=== PATIENT | male | born 1960 | race Caucasian/White ===

== ENCOUNTER 2018-04-10 11:01 | Emergency (ER) | payer OTHER ==
[2018-04-10 11:33] VITALS: RESP 18
[2018-04-10] MEDS ORDERED: SODIUM CHLORIDE 0.9% 1,000 ML IV STA (11:50)
--- NOTE | 2018-04-10 12:11 | ED ---
General Adult HPI - General Chief complaint: Extremity Problem,Nontraumatic Stated complaint: lt shoulder/side pain Time Seen by Provider: 04/10/18 11:34 Source: patient, RN notes reviewed Mode of arrival: ambulatory Limitations: no limitations - History of Present Illness Initial comments: Patient's a 57-year-old male with no significant past medical history, presented to the emergency room today with multiple complaints. He does admit that he's had a bump to the back of her left shoulder that his noticed for a few weeks. He states it has gotten smaller. Patient admits that he is also had some pain to the left side of the abdomen. He states that he's had a approximately 25 pound weight loss since February. Patient states is not been trying to lose weight but has noticed that his appetites been decreased. Patient states pain the abdomen is relatively comfortable today but it does seem to come and go. Patient denies any other symptoms at this time. Patient denies any recent fever, chills, shortness of breath, chest pain, back pain, nausea or vomiting, numbness or tingling, dysuria or hematuria, constipation or diarrhea, headaches or visual changes, or any other complaints. - Related Data Previous Rx's Medication Instructions Recorded Naproxen [Naprosyn] 500 mg PO BID #20 tablet 04/10/18 Allergies Allergy/AdvReac Type Severity Reaction Status Date / Time No Known Allergies Allergy Verified 04/10/18 11:33 Review of Systems ROS Statement: Those systems with pertinent positive or pertinent negative responses have been documented in the HPI. ROS Other: All systems not noted in ROS Statement are negative. Past Medical History Past Medical History: No Reported History History of Any Multi-Drug Resistant Organisms: None Reported Past Surgical History: Orthopedic Surgery Past Psychological History: No Psychological Hx Reported Smoking Status: Current every day smoker Past Alcohol Use History: None Reported Past Drug Use History: None Reported General Exam - General Exam Comments Initial Comments: General: The patient is awake and alert, in no distress, and does not appear acutely ill. Eye: There is normal conjunctiva bilaterally. No signs of icterus. Ears, nose, mouth and throat: There are moist mucous membranes and no oral lesions. Neck: The neck is supple, there is no tenderness or JVD. Cardiovascular: There is a regular rate and rhythm. No murmur, rub or gallop is appreciated. Respiratory: Lungs are clear to auscultation, respirations are non-labored, breath sounds are equal. No wheezes, stridor, rales, or rhonchi. Gastrointestinal: Mild tenderness left side of the abdomen. No rebound, guarding or CVA tenderness. Musculoskeletal: Normal ROM. Patient does have mild tenderness over the spine of the scapula. Strength 5/5. Full range of motion. Sensations intact. Radial pulse 2+. Neurological: A&O x 3. CN II-XII intact, There are no obvious motor or sensory deficits. Coordination appears grossly intact. Speech is normal. Skin: Skin is warm and dry and no rashes or lesions are noted. Psychiatric: Cooperative, appropriate mood & affect, normal judgment. Limitations: no limitations Course Vital Signs 04/10/18 11:31 Temperature 97.7 F Pulse Rate 79 Respiratory 18 Rate Blood Pressure 155/91 O2 Sat by Pulse 97 Oximetry Medical Decision Making - Medical Decision Making Patient reexamined and is resting comfortably. His x-ray of left shoulder and chest x-ray are negative for any acute abnormality. No evidence for infection or abscess. Patient advised to continue to watch the series does admit that swelling has decreased. He states he's had a decrease in weight and decrease in appetite over the last 2 months. Patient's blood work reviewed unremarkable.Patient's CT the pelvis reviewed and shows marked edema bilateral adrenal glands. Differential diagnostic possibilities including severe adrenal hyperplasia, nonacute adrenal hemorrhage, a lymphoma as well has metastatic disease. As read by radiologist Dr. Carlos. Case discussed in detail with attending physician Dr. Sabillon. Advised to follow-up with family physician over the next 2 days. Advised return here to emergency room if any symptoms increase or worsen or for any other concerns. - Lab Data Result diagrams: 04/10/18 12:11 04/10/18 12:11 Lab Results 04/10/18 04/10/18 04/10/18 Range/Units 12:11 12:11 12:11 WBC 8.2 (3.8-10.6) k/uL RBC 5.72 (4.30-5.90) m/uL Hgb 17.2 (13.0-17.5) gm/dL Hct 50.4 (39.0-53.0) % MCV 88.0 (80.0-100.0) fL MCH 30.0 (25.0-35.0) pg MCHC 34.1 (31.0-37.0) g/dL RDW 12.5 (11.5-15.5) % Plt Count 227 (150-450) k/uL Neutrophils % 70 % Lymphocytes % 21 % Monocytes % 6 % Eosinophils % 1 % Basophils % 1 % Neutrophils # 5.7 (1.3-7.7) k/uL Lymphocytes # 1.7 (1.0-4.8) k/uL Monocytes # 0.5 (0-1.0) k/uL Eosinophils # 0.1 (0-0.7) k/uL Basophils # 0.0 (0-0.2) k/uL Sodium 137 (137-145) mmol/L Potassium 4.8 (3.5-5.1) mmol/L Chloride 102 (98-107) mmol/L Carbon Dioxide 29 (22-30) mmol/L Anion Gap 6 mmol/L BUN 8 L (9-20) mg/dL Creatinine 0.84 (0.66-1.25) mg/dL Est GFR (CKD-EPI)AfAm >90 (>60 ml/min/1.73 sqM) Est GFR (CKD-EPI)NonAf >90 (>60 ml/min/1.73 sqM) Glucose 99 (74-99) mg/dL Calcium 9.7 (8.4-10.2) mg/dL Total Bilirubin 1.0 (0.2-1.3) mg/dL AST 20 (17-59) U/L ALT 23 (21-72) U/L Alkaline Phosphatase 78 (38-126) U/L Total Protein 7.2 (6.3-8.2) g/dL Albumin 4.3 (3.5-5.0) g/dL Amylase 35 (30-110) U/L Lipase 55 (23-300) U/L Urine Color Yellow Urine Appearance Clear (Clear) Urine pH 5.5 (5.0-8.0) Ur Specific [place] 1.005 (1.001-1.035) Urine Protein Negative (Negative) Urine Glucose (UA) Negative (Negative) Urine Ketones Negative (Negative) Urine Blood Negative (Negative) Urine Nitrite Negative (Negative) Urine Bilirubin Negative (Negative) Urine Urobilinogen <2.0 (<2.0) mg/dL Ur Leukocyte Esterase Negative (Negative) Disposition Clinical Impression: Adrenal abnormality, Shoulder pain Disposition: HOME SELF-CARE Condition: Good Additional Instructions: Please use medication as discussed. Please follow-up with family doctor in the next 2 days. Please return to emergency room if the symptoms increase or worsen or for any other concerns. Prescriptions: Naproxen [Naprosyn] 500 mg PO BID #20 tablet Is patient prescribed a controlled substance at d/c from ED?: No Referrals: None,Stated [Primary Care Provider] - 1-2 days Bubba Jewell MD [REFERRING] - 1-2 days Rasta Izquierdo DO [STAFF PHYSICIAN] - 1-2 days Time of Disposition: 14:20
--- NOTE | 2018-04-10 12:29 | XR ---
EXAMINATION TYPE: XR shoulder complete LT DATE OF EXAM: 04/10/2018 CLINICAL HISTORY: pain COMPARISON: NONE TECHNIQUE: Three views of the left shoulder are obtained. FINDINGS: There is no acute fracture/dislocation evident. The acromioclavicular and glenohumeral tuan int spaces appear mildly narrowed. The visualized ribs are intact and unremarkable. IMPRESSION: 1. There is no acute fracture or dislocation. ICD 10 NO FRACTURE, INITIAL EVALUATION
--- NOTE | 2018-04-10 12:39 | XR ---
EXAMINATION TYPE: XR chest 2V DATE OF EXAM: 04/10/2018 COMPARISON: NONE HISTORY: Shortness of breath TECHNIQUE: Frontal and lateral views of the chest are obtained. FINDINGS: Scattered senescent parenchymal changes noted. Hyperinflation compatible with COPD. No evidence for infiltrate. No evidence for atelectasis. Heart size is stable. Mediastinal structures are stable and grossly unremarkable. No evidence for hilar prominence. Degenerative changes dorsal spine. IMPRESSION: 1. No evidence for acute pulmonary disease.
[2018-04-10 12:47] LABS: Appearance,Urine Clear (Clear); Bilirubin,Urine Negative (Negative); Blood,Urine Negative (Negative); Color,Urine Yellow; Glucose,Urine (UA) Negative (Negative); Ketones,Urine Negative (Negative); Leukocyte Esterase,Urine Negative (Negative); Nitrite,Urine Negative (Negative); PH, Urine 5.5 (5.0-8.0); Protein,Urine Negative (Negative); Specific Gravity,Urine 1.005 (1.001-1.035); Urobilinogen,Urine <2.0 mg/dL (<2.0)
[2018-04-10 12:54] LABS: ALT 23 U/L (21-72); AST 20 U/L (17-59); Albumin 4.3 g/dL (3.5-5.0); Alkaline Phosphatase 78 U/L (38-126); Amylase 35 U/L (30-110); Anion Gap 6 mmol/L; Basophils % (A) 1 %; Blood Urea Nitrogen 8 mg/dL (9-20); Calcium 9.7 mg/dL (8.4-10.2); Carbon Dioxide 29 mmol/L (22-30); Chloride 102 mmol/L (98-107); Eosinophils # (A) 0.1 k/uL (0-0.7); Eosinophils % (A) 1 %; Glucose 99 mg/dL (74-99); HCT 50.4 % (39.0-53.0); HGB 17.2 gm/dL (13.0-17.5); Lipase 55 U/L (23-300); Lymphocytes # (A) 1.7 k/uL (1.0-4.8); Lymphocytes % (A) 21 %; MCHC 34.1 g/dL (31.0-37.0); Mean Platelet Volume 6.8; Monocytes # (A) 0.5 k/uL (0-1.0); Monocytes % (A) 6 %; Neutrophils # (A) 5.7 k/uL (1.3-7.7); Neutrophils % (A) 70 %; Platelet Count 227 k/uL (150-450); Potassium 4.8 mmol/L (3.5-5.1); RBC 5.72 m/uL (4.30-5.90); RDW 12.5 % (11.5-15.5); Sodium 137 mmol/L (137-145); Total Protein 7.2 g/dL (6.3-8.2); WBC 8.2 k/uL (3.8-10.6)
--- NOTE | 2018-04-10 13:25 | CT ---
EXAMINATION TYPE: CT abdomen pelvis w con DATE OF EXAM: 04/10/2018 COMPARISON: None HISTORY: Left sided pain for [address] DLP: 637 mGycm CONTRAST: CT scan of the abdomen and pelvis is performed without Oral Contrast and with IV Contrast, patient in jected with 100 mL of Isovue 300. FINDINGS: LUNG BASES-: No visible nodule. No infiltrate. LIVER/GB: No calcified gallstones. No space occupying hepatic lesion. Biliary tree is of normal ca liber. PANCREAS: No inflammation. No distinct mass. SPLEEN: No splenic enlargement. No lesion seen. ADRENALS: There is marked thickening of the bilateral adrenal glands. Differential diagnostic possibi lities include severe adrenal hyperplasia, nonacute adrenal hemorrhage, lymphoma as well as metastati c disease. Left adrenal gland measures 6.2 x 3.7 cm while the right adrenal gland measures 3.1 x 1.8 cm. KIDNEYS/BLADDER: No hydronephrosis. No nephrolithiasis. No distinct renal mass. Urinary bladder g rossly unremarkable. BOWEL: Normal appendix. Normal bowel caliber. No inflammation. GENITAL ORGANS: No gross abnormality. LYMPH NODES: No greater than 1cm abdominal or pelvic lymph nodes are appreciated. AORTA: No significant abnormality. OSSEOUS STRUCTURES: No significant abnormality is seen. OTHER: No significant additional abnormality is seen. IMPRESSION: 1. There is marked thickening of the bilateral adrenal glands. Differential diagnostic possibilities include severe adrenal hyperplasia, nonacute adrenal hemorrhage, lymphoma as well as metastatic disea se.
--- NOTE | 2018-04-10 14:26 | ED ---
Medical Decision Making - Lab Data Result diagrams: 04/10/18 12:11 04/10/18 12:11 Lab Results 04/10/18 04/10/18 04/10/18 Range/Units 12:11 12:11 12:11 WBC 8.2 (3.8-10.6) k/uL RBC 5.72 (4.30-5.90) m/uL Hgb 17.2 (13.0-17.5) gm/dL Hct 50.4 (39.0-53.0) % MCV 88.0 (80.0-100.0) fL MCH 30.0 (25.0-35.0) pg MCHC 34.1 (31.0-37.0) g/dL RDW 12.5 (11.5-15.5) % Plt Count 227 (150-450) k/uL Neutrophils % 70 % Lymphocytes % 21 % Monocytes % 6 % Eosinophils % 1 % Basophils % 1 % Neutrophils # 5.7 (1.3-7.7) k/uL Lymphocytes # 1.7 (1.0-4.8) k/uL Monocytes # 0.5 (0-1.0) k/uL Eosinophils # 0.1 (0-0.7) k/uL Basophils # 0.0 (0-0.2) k/uL Sodium 137 (137-145) mmol/L Potassium 4.8 (3.5-5.1) mmol/L Chloride 102 (98-107) mmol/L Carbon Dioxide 29 (22-30) mmol/L Anion Gap 6 mmol/L BUN 8 L (9-20) mg/dL Creatinine 0.84 (0.66-1.25) mg/dL Est GFR (CKD-EPI)AfAm >90 (>60 ml/min/1.73 sqM) Est GFR (CKD-EPI)NonAf >90 (>60 ml/min/1.73 sqM) Glucose 99 (74-99) mg/dL Calcium 9.7 (8.4-10.2) mg/dL Total Bilirubin 1.0 (0.2-1.3) mg/dL AST 20 (17-59) U/L ALT 23 (21-72) U/L Alkaline Phosphatase 78 (38-126) U/L Total Protein 7.2 (6.3-8.2) g/dL Albumin 4.3 (3.5-5.0) g/dL Amylase 35 (30-110) U/L Lipase 55 (23-300) U/L Urine Color Yellow Urine Appearance Clear (Clear) Urine pH 5.5 (5.0-8.0) Ur Specific [place] 1.005 (1.001-1.035) Urine Protein Negative (Negative) Urine Glucose (UA) Negative (Negative) Urine Ketones Negative (Negative) Urine Blood Negative (Negative) Urine Nitrite Negative (Negative) Urine Bilirubin Negative (Negative) Urine Urobilinogen <2.0 (<2.0) mg/dL Ur Leukocyte Esterase Negative (Negative) Disposition Clinical Impression: Adrenal abnormality, Shoulder pain Disposition: HOME SELF-CARE Condition: Good Instructions (If sedation given, give patient instructions): Abdominal Pain (ED ) Additional Instructions: Please use medication as discussed. Please follow-up with family doctor in the next 2 days. Please return to emergency room if the symptoms increase or worsen or for any other concerns. Prescriptions: Naproxen [Naprosyn] 500 mg PO BID #20 tablet Is patient prescribed a controlled substance at d/c from ED?: No Referrals: Bubba Jewell MD [REFERRING] - 1-2 days Rasta Izquierdo DO [STAFF PHYSICIAN] - 1-2 days None,Stated [Primary Care Provider] - 1-2 days Time of Disposition: 14:25
[2018-04-10 14:36] VITALS: BP 148/80; PULSE 81; TEMP 98
== END 2018-04-10 14:36 | disposition home or self-care (01) ==
LOC: EC 11:01
DX: E27.8 Other specified disorders of adrenal gland (principal); M25.512 Pain in left shoulder; R22.32 Localized swelling, mass and lump, left upper limb; R10.9 Unspecified abdominal pain; R63.4 Abnormal weight loss; R63.8 Other symptoms and signs concerning food and fluid intake; F17.200 Nicotine dependence, unspecified, uncomplicated
CPT/HCPCS: 99284; 96360; 36415; 80053; 82150; 83690; 85025; 81003; 73030; 71046; 74177; Q9967

== ENCOUNTER → 2018-04-17 | Outpatient (CLI) | payer OTHER ==
--- NOTE | 2018-04-18 04:58 | MR ---
EXAMINATION TYPE: MR shoulder LT wo con DATE OF EXAM: 04/17/2018 COMPARISON: None HISTORY: Left Shoulder Pain, X Ray on PACS TECHNIQUE: Multiplanar, multisequence imaging of the left shoulder is performed without contrast. FINDINGS: There is a 2.6 x 2.5 x 2.2 cm destructive lesion involving the body of the scapula near the glenoid. There is cortical destruction and mass extension into the adjacent soft tissues. The lesion is predom inantly decreased signal on T1 and increased signal on T2 images. There is also a similar appearing r ounded expansile destructive lesion involving the acromion process of the scapula. This is posterior and could be palpable. The biceps tendon is intact. Subscapularis tendon is intact. The supraspinatus tendon is intact. Ther e is minor spurring at the AC joint. There is no evidence for fracture. IMPRESSION: Expansile mass destructive lesions involving the scapula suggestive of metastatic disease. Bone surve y or whole-body bone scan would be helpful for further evaluation if clinically indicated. Myeloma is possible.
== END | disposition home or self-care (01) ==
LOC: RADMRIMAIN 16:22
PROVIDERS: ATTEND Internal Medicine
DX: M75.82 Other shoulder lesions, left shoulder (principal)

== ENCOUNTER → 2018-04-20 | Outpatient (CLI) | payer OTHER ==
--- NOTE | 2018-04-20 16:15 | CT ---
EXAMINATION TYPE: CT shoulder LT wo con DATE OF EXAM: 04/20/2018 COMPARISON: MR left shoulder 04/17/2018 HISTORY: Left shoulder pain. Recent cancer diagnosis of unknown origin. CT DLP: 440 mGycm Automated exposure control for dose reduction was used. Helical imaging through the left shoulder. Co bertha and sagittal, three-dimensional reconstructions. There is a lytic bone lesion involving the bony labrum with associated soft tissue mass measuring 2.4 cm. Lytic bone lesion is also present at the spine of the scapula with associated soft tissue mass m easuring approximately 2.2 cm. Emphysematous changes present within the left lung. IMPRESSION: METASTATIC DISEASE VERSUS MYELOMA, LESION WOULD BE AMENABLE TO PERCUTANEOUS FINE-NEEDLE ASPIRATION
== END | disposition home or self-care (01) ==
LOC: RADCTMAIN 13:34
PROVIDERS: ATTEND Orthopaedic Surgery
DX: M25.512 Pain in left shoulder (principal)

== ENCOUNTER 2018-05-03 12:49 | Inpatient (IN) | payer OTHER ==
--- NOTE | 2018-05-03 14:19 | ED ---
General Adult HPI - General Chief complaint: Recheck/Abnormal Lab/Rx Stated complaint: memory problems/cancer pt Time Seen by Provider: 05/03/18 13:40 Source: patient, family, RN notes reviewed Mode of arrival: ambulatory Limitations: altered mental status - History of Present Illness Initial comments: Patient is a pleasant 57-year-old male presenting to the emergency Department with confusion. Onset of symptoms was mild week or so ago however more severe the past 3 days. Patient was recently diagnosed with cancer in his left shoulder. Patient did have this diagnosed by computed tomography scan and then went downtown and had more testing. Patient was supposed to follow-up with Dr. Thompson however cannot remember how to get there. Patient is having problems with simple tasks including using the phone and has been more forgetful. Patient did not eat for the last couple of days. Patient has lost approximately 20 pounds over the last couple months. - Related Data Home Medications Medication Instructions Recorded Confirmed HYDROcodone/APAP 5-325MG [[place] 1 tab PO Q4HR PRN 05/03/18 05/03/18 5-325] Allergies Allergy/AdvReac Type Severity Reaction Status Date / Time No Known Allergies Allergy Verified 05/03/18 13:33 Review of Systems ROS Statement: Those systems with pertinent positive or pertinent negative responses have been documented in the HPI. ROS Other: All systems not noted in ROS Statement are negative. Constitutional: Denies: fever Eyes: Denies: eye pain ENT: Denies: ear pain Respiratory: Denies: cough Cardiovascular: Denies: chest pain Endocrine: Denies: fatigue Gastrointestinal: Denies: abdominal pain Genitourinary: Denies: dysuria Musculoskeletal: Reports: arthralgia (Left Posterior shoulder/region) Neurological: Reports: confusion. Denies: headache Past Medical History Past Medical History: No Reported History History of Any Multi-Drug Resistant Organisms: None Reported Past Surgical History: Orthopedic Surgery Additional Past Surgical History / Comment(s): right elbow Past Psychological History: No Psychological Hx Reported Smoking Status: Current every day smoker Past Alcohol Use History: None Reported Past Drug Use History: None Reported General Exam Limitations: no limitations General appearance: alert, in no apparent distress Head exam: Present: atraumatic Eye exam: Present: normal appearance, PERRL, EOMI. Absent: nystagmus ENT exam: Present: normal oropharynx Neck exam: Present: normal inspection Respiratory exam: Present: normal lung sounds bilaterally Cardiovascular Exam: Present: regular rate, normal rhythm Expanded Peripheral pulses: 2+: Radial (R), Radial (L), Posterior Tibialis (R), Posterior Tibialis (L) GI/Abdominal exam: Present: soft. Absent: distended, tenderness Extremities exam: Present: full ROM, tenderness (Left scapular region). Absent : pedal edema, calf tenderness Back exam: Present: normal inspection Neurological exam: Present: alert, oriented X3, CN II-XII intact. Absent: motor sensory deficit Expanded Neurological exam: Present: protecting the airway Patient oriented to: Present: person, place. Absent: time Speech: Present: fluid speech Cranial nerves: EOM's Intact: Normal Motor strength exam: RUE: 5, LUE: 5, RLE: 5, LLE: 5 Eye Response: (4) open spontaneously Motor Response: (6) obeys commands Verbal Response: (4) confused conversation Psychiatric exam: Present: normal affect, normal mood Skin exam: Present: normal color Course Vital Signs 05/03/18 05/03/18 12:51 15:30 Temperature 97.6 F Pulse Rate 82 87 Respiratory 18 18 Rate Blood Pressure 165/95 139/97 O2 Sat by Pulse 98 98 Oximetry EKG Findings - EKG Comments: EKG Findings:: Normal sinus rhythm at 82. [place] 152. QRS 84. QT 388. QTC 453. Left axis. Septal Q waves. No acute ST change. Medical Decision Making - Medical Decision Making Patient and family were updated. Case was discussed with Dr. she is against neck, covering for Dr. Sherry rivera, who will admit. Case also discussed with Dr. Thompson, who will consult. He is somewhat familiar with this patient as he was supposed to see them in the office. Patient states he was too confused to make it to the office. He does recommend Decadron 6 mg IV every 6 as well as IV fluids. - Lab Data Result diagrams: 05/03/18 14:30 05/03/18 14:30 Lab Results 05/03/18 05/03/18 05/03/18 Range/Units 14:30 14:30 14:30 WBC 7.9 (3.8-10.6) k/uL RBC 5.70 (4.30-5.90) m/uL Hgb 17.3 (13.0-17.5) gm/dL Hct 49.9 (39.0-53.0) % MCV 87.5 (80.0-100.0) fL MCH 30.4 (25.0-35.0) pg MCHC 34.7 (31.0-37.0) g/dL RDW 12.8 (11.5-15.5) % Plt Count 230 (150-450) k/uL Neutrophils % 78 % Lymphocytes % 15 % Monocytes % 5 % Eosinophils % 1 % Basophils % 0 % Neutrophils # 6.1 (1.3-7.7) k/uL Lymphocytes # 1.2 (1.0-4.8) k/uL Monocytes # 0.4 (0-1.0) k/uL Eosinophils # 0.1 (0-0.7) k/uL Basophils # 0.0 (0-0.2) k/uL PT 9.5 (9.0-12.0) sec INR 0.9 (<1.2) APTT 27.3 (22.0-30.0) sec Sodium 136 L (137-145) mmol/L Potassium 5.3 H (3.5-5.1) mmol/L Chloride 102 (98-107) mmol/L Carbon Dioxide 28 (22-30) mmol/L Anion Gap 6 mmol/L BUN 6 L (9-20) mg/dL Creatinine 0.73 (0.66-1.25) mg/dL Est GFR (CKD-EPI)AfAm >90 (>60 ml/min/1.73 sqM) Est GFR (CKD-EPI)NonAf >90 (>60 ml/min/1.73 sqM) Glucose 103 H (74-99) mg/dL POC Glucose (mg/dL) (75-99) mg/dL POC Glu [employer] Supervisor ID Calcium 9.9 (8.4-10.2) mg/dL Total Bilirubin 1.1 (0.2-1.3) mg/dL AST 25 (17-59) U/L ALT 27 (21-72) U/L Alkaline Phosphatase 76 (38-126) U/L Ammonia (<30) umol/L Creatine Kinase 32 L (55-170) U/L Total Protein 6.9 (6.3-8.2) g/dL Albumin 4.0 (3.5-5.0) g/dL Urine Color Urine Appearance (Clear) Urine pH (5.0-8.0) Ur Specific [place] (1.001-1.035) Urine Protein (Negative) Urine Glucose (UA) (Negative) Urine Ketones (Negative) Urine Blood (Negative) Urine Nitrite (Negative) Urine Bilirubin (Negative) Urine Urobilinogen (<2.0) mg/dL Ur Leukocyte Esterase (Negative) Urine Opiates Screen (NotDetected) Ur Oxycodone Screen (NotDetected) Urine Methadone Screen (NotDetected) Ur Propoxyphene Screen (NotDetected) Ur Barbiturates Screen (NotDetected) U Tricyclic Antidepress (NotDetected) Ur Phencyclidine Scrn (NotDetected) Ur Amphetamines Screen (NotDetected) U Methamphetamines Scrn (NotDetected) U Benzodiazepines Scrn (NotDetected) Urine Cocaine Screen (NotDetected) U Marijuana (THC) Screen (NotDetected) 05/03/18 05/03/18 05/03/18 Range/Units 14:30 14:30 14:47 WBC (3.8-10.6) k/uL RBC (4.30-5.90) m/uL Hgb (13.0-17.5) gm/dL Hct (39.0-53.0) % MCV (80.0-100.0) fL MCH (25.0-35.0) pg MCHC (31.0-37.0) g/dL RDW (11.5-15.5) % Plt Count (150-450) k/uL Neutrophils % % Lymphocytes % % Monocytes % % Eosinophils % % Basophils % % Neutrophils # (1.3-7.7) k/uL Lymphocytes # (1.0-4.8) k/uL Monocytes # (0-1.0) k/uL Eosinophils # (0-0.7) k/uL Basophils # (0-0.2) k/uL PT (9.0-12.0) sec INR (<1.2) APTT (22.0-30.0) sec Sodium (137-145) mmol/L Potassium (3.5-5.1) mmol/L Chloride (98-107) mmol/L Carbon Dioxide (22-30) mmol/L Anion Gap mmol/L BUN (9-20) mg/dL Creatinine (0.66-1.25) mg/dL Est GFR (CKD-EPI)AfAm (>60 ml/min/1.73 sqM) Est GFR (CKD-EPI)NonAf (>60 ml/min/1.73 sqM) Glucose (74-99) mg/dL POC Glucose (mg/dL) 101 H (75-99) mg/dL POC Glu [employer] Supervisor ID [place] Calcium (8.4-10.2) mg/dL Total Bilirubin (0.2-1.3) mg/dL AST (17-59) U/L ALT (21-72) U/L Alkaline Phosphatase (38-126) U/L Ammonia <9 (<30) umol/L Creatine Kinase (55-170) U/L Total Protein (6.3-8.2) g/dL Albumin (3.5-5.0) g/dL Urine Color Light Yellow Urine Appearance Clear (Clear) Urine pH 6.0 (5.0-8.0) Ur Specific [place] 1.001 (1.001-1.035) Urine Protein Negative (Negative) Urine Glucose (UA) Negative (Negative) Urine Ketones Negative (Negative) Urine Blood Negative (Negative) Urine Nitrite Negative (Negative) Urine Bilirubin Negative (Negative) Urine Urobilinogen <2.0 (<2.0) mg/dL Ur Leukocyte Esterase Negative (Negative) Urine Opiates Screen Detected H (NotDetected) Ur Oxycodone Screen Not Detected (NotDetected) Urine Methadone Screen Not Detected (NotDetected) Ur Propoxyphene Screen Not Detected (NotDetected) Ur Barbiturates Screen Not Detected (NotDetected) U Tricyclic Antidepress Not Detected (NotDetected) Ur Phencyclidine Scrn Not Detected (NotDetected) Ur Amphetamines Screen Not Detected (NotDetected) U Methamphetamines Scrn Not Detected (NotDetected) U Benzodiazepines Scrn Not Detected (NotDetected) Urine Cocaine Screen Not Detected (NotDetected) U Marijuana (THC) Screen Not Detected (NotDetected) - Radiology Data Radiology results: image reviewed (Computed tomography scan of the brain shows diffuse metastatic disease with edema associated. Chest x-ray shows no acute process.) Disposition Clinical Impression: Metastatic cancer to brain, Altered mental status Disposition: ADMITTED IP TO THIS HOSP Condition: Poor Is patient prescribed a controlled substance at d/c from ED?: No Referrals: None,Stated [Primary Care Provider] - 1-2 days Decision Time: 16:40
[2018-05-03 14:50] LABS: Glucose,Whole Blood 101 mg/dL (75-99)
[2018-05-03 14:59] LABS: Basophils % (A) 0 %; Eosinophils # (A) 0.1 k/uL (0-0.7); Eosinophils % (A) 1 %; HCT 49.9 % (39.0-53.0); HGB 17.3 gm/dL (13.0-17.5); Lymphocytes # (A) 1.2 k/uL (1.0-4.8); Lymphocytes % (A) 15 %; MCH 30.4 pg (25.0-35.0); MCHC 34.7 g/dL (31.0-37.0); MCV 87.5 fL (80.0-100.0); Mean Platelet Volume 7.5; Monocytes # (A) 0.4 k/uL (0-1.0); Monocytes % (A) 5 %; Neutrophils # (A) 6.1 k/uL (1.3-7.7); Neutrophils % (A) 78 %; Platelet Count 230 k/uL (150-450); RDW 12.8 % (11.5-15.5); WBC 7.9 k/uL (3.8-10.6)
[2018-05-03 15:00] LABS: ALT 27 U/L (21-72); AST 25 U/L (17-59); Alkaline Phosphatase 76 U/L (38-126); Anion Gap 6 mmol/L; Appearance,Urine Clear (Clear); Bilirubin,Urine Negative (Negative); Blood Urea Nitrogen 6 mg/dL (9-20); Blood,Urine Negative (Negative); Calcium 9.9 mg/dL (8.4-10.2); Carbon Dioxide 28 mmol/L (22-30); Chloride 102 mmol/L (98-107); Color,Urine Light Yellow; Creatine Kinase 32 U/L (55-170); Glucose 103 mg/dL (74-99); Glucose,Urine (UA) Negative (Negative); Ketones,Urine Negative (Negative); Leukocyte Esterase,Urine Negative (Negative); Nitrite,Urine Negative (Negative); Protein,Urine Negative (Negative); Sodium 136 mmol/L (137-145); Specific Gravity,Urine 1.001 (1.001-1.035); Total Bilirubin 1.1 mg/dL (0.2-1.3); Total Protein 6.9 g/dL (6.3-8.2); Urobilinogen,Urine <2.0 mg/dL (<2.0)
[2018-05-03 15:03] LABS: INR 0.9 (<1.2); Partial Thromboplastin Time 27.3 sec (22.0-30.0); Prothrombin Time 9.5 sec (9.0-12.0)
[2018-05-03 15:14] LABS: Cocaine Screen,Urine Not Detected (NotDetected); Phencyclidine Screen,Urine Not Detected (NotDetected); Urn Cannabinoid Scrn Not Detected (NotDetected)
[2018-05-03 15:15] LABS: Amphetamine Screen,Urine Not Detected (NotDetected); Barbiturate Screen,Urine Not Detected (NotDetected); Benzodiazepines Screen,Urine Not Detected (NotDetected); Methadone Screen, Urine Not Detected (NotDetected); Opiate Screen,Urine Detected (NotDetected); Oxycodone Screen, Urine Not Detected (NotDetected); Tricyclic Antidepressant,Urine Not Detected (NotDetected)
--- NOTE | 2018-05-03 15:24 | CT ---
EXAMINATION TYPE: CT brain wo/w con DATE OF EXAM: 05/03/2018 COMPARISON: None HISTORY: Memory problems. Known cancer to shoulder region. CT DLP: 2110.4 mGycm Automated exposure control for dose reduction was used. CONTRAST: CT scan of the head is performed without and with IV Contrast, patient injected with 100 mL of Isovue 300. FINDINGS: Multiple masses are noted. Within the left parietal lobe there is a mass measuring approximately 3.4 x 5.1 x 4.5 cm which show some peripheral enhancement with mass effect on the posterior horn of the l eft lateral ventricle. Mass within the right frontal parietal region extending to the convexity measu res 3.9 cm in AP dimension by 3.4 cm x 2.3 cm and shows local mass effect, there is extensive vasogen ic edema, mass effect on the right lateral ventricle. Homogenous enhancement is present following con trast administration. Vasogenic edema also noted on the left. Left temporal lesion also suspected, th ere is focal low attenuation which is somewhat poorly defined, no enhancement. No hydrocephalus or he morrhage. IMPRESSION: Metastatic disease. Different enhancement patterns between the dominant masses as described. MRI may be of benefit. Mass effect and extensive edema.
[2018-05-03 15:47] LABS: Potassium 5.3 mmol/L (3.5-5.1)
--- NOTE | 2018-05-03 16:16 | XR ---
EXAMINATION TYPE: XR chest 2V DATE OF EXAM: 05/03/2018 COMPARISON: Prior chest x-ray 04/10/2018 HISTORY: Altered mental status, metastatic disease TECHNIQUE: Frontal and lateral views of the chest are obtained. FINDINGS: No interval change IMPRESSION: Stable exam, no acute cardiopulmonary disease.
[2018-05-03] MEDS ORDERED: NALOXONE 0.4 MG/ML 1 ML VIAL IV PRN (16:40)
[2018-05-03] MEDS: SODIUM CHLORIDE 0.9% 1,000 ML IV SCH (17:06)
[2018-05-03] MEDS: DEXAMETHASONE SOD PHOSPHATE 10 MG/ML 1 ML VIAL IV SCH ×2 (17:07→23:50)
[2018-05-03 19:06] VITALS: BMI 20.7
[2018-05-03] MEDS: HYDROcodone/APAP 5-325MG 1 EACH TAB PO PRN (20:42)
[2018-05-04] MEDS: SODIUM CHLORIDE 0.9% 1,000 ML IV SCH ×2 (05:37→20:51)
[2018-05-04] MEDS: HYDROcodone/APAP 5-325MG 1 EACH TAB PO PRN ×2 (05:57→11:57)
[2018-05-04] MEDS: DEXAMETHASONE SOD PHOSPHATE 10 MG/ML 1 ML VIAL IV SCH ×3 (05:57→17:15)
[2018-05-04 08:41] LABS: HCT 48.5 % (39.0-53.0); HGB 16.2 gm/dL (13.0-17.5); MCH 29.8 pg (25.0-35.0); MCHC 33.4 g/dL (31.0-37.0); MCV 89.4 fL (80.0-100.0); Mean Platelet Volume 7.3; Platelet Count 250 k/uL (150-450); RBC 5.43 m/uL (4.30-5.90); RDW 12.8 % (11.5-15.5); WBC 9.5 k/uL (3.8-10.6)
[2018-05-04 09:02] LABS: Anion Gap 8 mmol/L; Blood Urea Nitrogen 11 mg/dL (9-20); Calcium 9.3 mg/dL (8.4-10.2); Carbon Dioxide 24 mmol/L (22-30); Chloride 103 mmol/L (98-107); Glucose 228 mg/dL (74-99); Potassium 4.9 mmol/L (3.5-5.1); Sodium 135 mmol/L (137-145)
--- NOTE | 2018-05-04 10:02 | P.HPIM ---
History of Present Illness H&P Date: 05/03/18 57-year-old gentleman came in the emergency department complaints of confusion. Patient is alert and oriented 3 but confused about his regular activities including vacuuming. Unable to dial numbers. Patient was recently diagnosed with the cancer primary unknown patient is scheduled to follow-up with the oncologist Dr. Owen as an outpatient but unable to follow up with him as his bit confused. Since patient brother came home from [facility] he is able to bring the patient to the hospital. Patient is found to have multiple metastatic lesions which is probably causing his confusion in the both the cerebral hemispheres involving parietotemporal lobes. Patient was started on Decadron patient does not have any focal neurological deficits except for confusion. There is significant as indicated edema. Patient the had multiple diagnostic tests before this hospitalization which showed a lesion in the left shoulder area which probably can be biopsied. Patient will be admitted and oncology will be consulted. any fever chills cough runny nose. Patient does not have any weakness or tingling numbness anywhere in the body. Review of Systems REVIEW OF SYSTEMS: CONSTITUTIONAL: No fever, no malaise, no fatigue. HEENT: No recent visual problems or hearing problems. Denied any sore throat. CARDIOVASCULAR: No chest pain, orthopnea, PND, no palpitations, no syncope. PULMONARY: No shortness of breath, no cough, no hemoptysis. GASTROINTESTINAL: No diarrhea, no nausea, no vomiting, no abdominal pain. NEUROLOGICAL: No headaches, no weakness, no numbness. HEMATOLOGICAL: Denies any bleeding or petechiae. GENITOURINARY: Denies any burning micturition, frequency, or urgency. MUSCULOSKELETAL/RHEUMATOLOGICAL: Denies any joint pain, swelling, or any muscle pain. ENDOCRINE: Denies any polyuria or polydipsia. The rest of the 14-point review of systems is negative. Past Medical History Past Medical History: No Reported History History of Any Multi-Drug Resistant Organisms: None Reported Past Surgical History: Orthopedic Surgery Additional Past Surgical History / Comment(s): right elbow Past Anesthesia/Blood Transfusion Reactions: No Reported Reaction Past Psychological History: No Psychological Hx Reported Smoking Status: Current every day smoker Past Alcohol Use History: None Reported Past Drug Use History: None Reported - Past Family History Brother(s) Family Medical History: Coronary Artery Disease (CAD) Mother Family Medical History: Cancer Additional Family Medical History / Comment(s): lung Medications and Allergies Home Medications Medication Instructions Recorded Confirmed Type HYDROcodone/APAP 5-325MG [[place] 1 tab PO Q4HR PRN 05/03/18 05/03/18 History 5-325] Allergies Allergy/AdvReac Type Severity Reaction Status Date / Time No Known Allergies Allergy Verified 05/03/18 13:33 Physical Exam Vitals: Vital Signs Temp Pulse Pulse Resp BP BP Pulse Ox 05/04/18 08:23 97.9 F 92 16 115/72 95 05/04/18 07:24 98.5 F 89 126/82 98 05/03/18 23:55 98.1 F 83 18 127/76 99 05/03/18 18:50 98.9 F 85 18 130/73 96 05/03/18 17:00 81 14 128/88 98 05/03/18 16:30 80 12 132/98 98 05/03/18 15:30 87 18 139/97 98 05/03/18 12:51 97.6 F 82 18 165/95 98 Intake and Output 05/03/18 05/04/18 05/04/18 22:59 06:59 14:59 Intake Total 600 Balance 600 Intake: Intake, IV Titration 600 Amount Sodium Chloride 0.9% 1, 600 000 ml @ 75 mls/hr IV . [id number] [facility] Rx#:[id number] Other: Voiding Method Toilet Toilet # Voids 1 1 1 PHYSICAL EXAMINATION: GENERAL: The patient is alert and oriented x3, not in any acute distress. Well developed, well nourished. Patient is bit confused as mentioned in the HPI HEENT: Pupils are round and equally reacting to light. EOMI. No scleral icterus. No conjunctival pallor. Normocephalic, atraumatic. No pharyngeal erythema. No thyromegaly. CARDIOVASCULAR: S1 and S2 present. No murmurs, rubs, or gallops. PULMONARY: Chest is clear to auscultation, no wheezing or crackles. ABDOMEN: Soft, nontender, nondistended, normoactive bowel sounds. No palpable organomegaly. MUSCULOSKELETAL: No joint swelling or deformity. EXTREMITIES: No cyanosis, clubbing, or pedal edema. NEUROLOGICAL: Gross neurological examination did not reveal any focal deficits. SKIN: No rashes. Results CBC & Chem 7: 05/04/18 08:04 05/04/18 08:04 Labs: Abnormal Lab Results - Last 24 Hours (Table) 05/03/18 05/03/18 05/03/18 Range/Units 14:30 14:30 14:47 Sodium 136 L (137-145) mmol/L Potassium 5.3 H (3.5-5.1) mmol/L BUN 6 L (9-20) mg/dL Glucose 103 H (74-99) mg/dL POC Glucose (mg/dL) 101 H (75-99) mg/dL Creatine Kinase 32 L (55-170) U/L Urine Opiates Screen Detected H (NotDetected) 05/04/18 Range/Units 08:04 Sodium 135 L (137-145) mmol/L Potassium (3.5-5.1) mmol/L BUN (9-20) mg/dL Glucose 228 H (74-99) mg/dL POC Glucose (mg/dL) (75-99) mg/dL Creatine Kinase (55-170) U/L Urine Opiates Screen (NotDetected) Thrombosis Risk Factor Assmnt - Choose All That Apply Each Factor Represents 1 point: Age 41-60 years Thrombosis Risk Factor Assessment Total Risk Factor Score: 1 Thrombosis Risk Factor Assessment Level: Low Risk Assessment and Plan Plan: Metastatic cancer: Primary unknown patient has brain metastases with vasogenic edema altered mental status secondary to brain metastases, patient will be started on Decadron IV close clinical monitoring may need seizure prophylaxis. Oncology was consulted. 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
[2018-05-04] MEDS: levETIRAcetam 500 MG TAB PO SCH ×2 (11:00→21:27)
--- NOTE | 2018-05-04 13:31 | CDI ---
Documentation Clarification Form Date: 05/04/2018 1:12:25 PM From: Meenu Nugent RN, CCDS Admit Date: 05/03/2018 4:40:00 PM Patient Name: Td Alamo Visit Number: [id number] Discharge Date: ATTENTION: The Clinical Documentation Specialists (CDI) and [facility] Coding Staff appreciate your assistance in clarifying documentation. Please respond to the clarification below the line at the bottom and electronically sign. The CDI & [facility] Coding staff will review the response and follow-up if needed. Please note: Queries are made part of the Legal Health Record. If you have any questions, please contact the author of this message via ITS. Dr. Elvi Lucio Altered Mental Status was documented in the ED evaluation and your H/P History/Risk Factors: Metastatic Cancer with Brain metastases, Left shoulder cancer, Current everyday smoker Clinical Indicators: 57 year-old male present confusion. He has problems with simple tasks including using the phone and has been more forgetful. He did not eat for the last couple of days, and reported a 20 pound weight lost. Labs: NA+ 136, K+ 5.3 CT Brain: Metastatic disease. Different enhancement patterns between the dominant masses. Mass effect and extensive edema. Treatment: Decadron IV IV Fluids Keppra PO In your professional opinion, please further clarify the type of Encephalopathy if known. Metabolic Encephalopathy (underlying medical illness) Other condition (please specify) Unable to determine (Last Revision: June 2017) MTDD
[2018-05-04] MEDS: HEPARIN SODIUM,PORCINE 5,000 UNIT/ML 1 ML VIAL SQ SCH (15:21)
--- NOTE | 2018-05-04 15:23 | US ---
EXAMINATION TYPE: US biopsy soft tissue/muscle DATE OF EXAM: 05/04/2018 HISTORY: Metastatic disease, left scapula mass. FINDINGS: Maximal barrier technique was utilized. The skin overlying a suitable path to the patient' s left scapula mass was localized with ultrasound and the overlying skin prepped and draped. Ultraso und was utilized with sterile technique. Lidocaine was used for local anesthesia. A skin shawn was m madelyn with a scalpel. An 18-gauge needle was advanced under direct ultrasound guidance and core specim en obtained of the mass. 2 core specimens obtained. Specimen submitted in formalin to Pathology. Fo llowing the procedure, hemostasis achieved and the patient is discharged in stable condition without complication. IMPRESSION:STATUS POST ULTRASOUND GUIDED CORE BIOPSY OF left scapula MASS, PATHOLOGY IS PENDING. THI S PROCEDURE IS PERFORMED BY THE UNDERSIGNED.
--- NOTE | 2018-05-04 15:45 | P.CONS ---
History of Present Illness - Reason for Consult Consult date: 05/04/18 brain metastasis Requesting physician: Keo Owen - Chief Complaint confusion - History of Present Illness The patient is a 57-year-old male with a history of likely newly diagnosed lung cancer with metastatic disease involving the bone, brain and bilateral adrenals. He presents to the hospital complaining of confusion. The patient's oncologic history began gradually over the past few months. He first reports that he noticed a soft tissue lump on his left shoulder. 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 He also developed left-sided flank pain. His primary physician ordered a CT scan of the abdomen and pelvis on April 10 which showed marked thickening of the bilateral adrenal glands with a 6.2 cm lesion on the left and a 3 x 1.8 cm lesion on the right. He was also ordered to undergo an MRI of the shoulder which was performed on April 17. This study revealed a 2.6 x 2.5 cm destructive lesion involving the body of the scapula, and a second lesion on the acromion. The patient was subsequently recommended to be evaluated in medical oncology. He underwent a CT scan of the chest, abdomen and pelvis on April 27 at [facility]. Although these scans are unavailable, the report shows a 2.3 cm spiculated right upper lung nodule, with 2 cm right hilar adenopathy. Note was also made of a 1.4 cm peritoneal deposit in the upper abdomen which was worrisome for metastatic disease. Bone scan revealed a lesion in the left scapula, clavicle, the right humeral head, the sacrum as well as the right proximal tibia. The patient was supposed to be evaluated in medical oncology 2 days ago, when he began having confusion. The patient reports that he has had difficulty concentrating for several weeks, however over the past few days he has developed difficulty using his household appliances. He called his brother in [place], and had significant work finding difficulties. His brother has since come to town to help him out as the patient has no other family or social support. He now presents to the ER, and a CT scan of the brain revealed a 3.4 x 5.1 x 4.5 cm left parietal lobe mass, as well as a 3.9 x 3.4 cm right frontal lobe mass with extensive vasogenic edema. He has subsequently been admitted and started on Decadron. Review of Systems Constitutional: Denies chills, Denies fever Eyes: bilateral blurred vision Ears: deny: decreased hearing Ears, nose, mouth and throat: Denies headache Cardiovascular: Denies chest pain Respiratory: Reports cough, Denies hemoptysis, Denies pleurisy Gastrointestinal: Denies abdominal pain Genitourinary: Reports flank pain (Left > R) Musculoskeletal: Denies leg numbness/tingling Neurological: Reports aphasia, Denies balance difficulties, Denies confusion, Denies double vision, Denies headaches, Denies motor disturbance, Denies numbness, Denies paralysis, Denies seizures Psychiatric: Reports confusion Past Medical History Past Medical History: No Reported History History of Any Multi-Drug Resistant Organisms: None Reported Past Surgical History: Orthopedic Surgery Additional Past Surgical History / Comment(s): right elbow Past Anesthesia/Blood Transfusion Reactions: No Reported Reaction Past Psychological History: No Psychological Hx Reported Smoking Status: Current every day smoker (1 pack/day x 30 years at least) Past Alcohol Use History: None Reported Past Drug Use History: None Reported - Past Family History Brother(s) Family Medical History: Coronary Artery Disease (CAD) Mother Family Medical History: Cancer Additional Family Medical History / Comment(s): lung Medications and Allergies Home Medications Medication Instructions Recorded Confirmed Type HYDROcodone/APAP 5-325MG [[place] 1 tab PO Q4HR PRN 05/03/18 05/03/18 History 5-325] Allergies Allergy/AdvReac Type Severity Reaction Status Date / Time No Known Allergies Allergy Verified 05/03/18 13:33 Physical Exam Vitals: Vital Signs Temp Pulse Pulse Resp BP BP Pulse Ox 05/04/18 15:00 78 115/61 98 05/04/18 14:37 76 18 128/65 97 05/04/18 13:24 80 20 122/68 05/04/18 08:23 97.9 F 92 16 115/72 95 05/04/18 07:24 98.5 F 89 126/82 98 05/03/18 23:55 98.1 F 83 18 127/76 99 05/03/18 18:50 98.9 F 85 18 130/73 96 05/03/18 17:00 81 14 128/88 98 05/03/18 16:30 80 12 132/98 98 05/03/18 15:30 87 18 139/97 98 Intake and Output 05/04/18 05/04/18 05/04/18 06:59 14:59 22:59 Intake Total 600 477 Balance 600 477 Intake: Intake, IV Titration 600 Amount Sodium Chloride 0.9% 1, 600 000 ml @ 75 mls/hr IV . [id number] Rx#:[id number] Oral 477 Other: Voiding Method Toilet Toilet # Voids 1 1 Weight 65.499 kg - Constitutional General appearance: no acute distress - EENT Eyes: EOMI, PERRLA ENT: hearing grossly normal, NA/AT - Neck Neck: no lymphadenopathy - Respiratory Respiratory: bilateral: CTA - Cardiovascular Rhythm: regular - Gastrointestinal General gastrointestinal: no distended, no tenderness - Integumentary Integumentary: no calor, no rash - Neurologic Neurologic: CNII-XII intact, focal deficits (Expressive aphasia noted - difficulty with word finding) - Musculoskeletal Musculoskeletal: strength equal bilaterally - Psychiatric Psychiatric: no A&O x's 3 (A & O x 2, incorrect date - also thought Obama still president), appropriate affect Results CBC & Chem 7: 05/04/18 08:04 05/04/18 08:04 Labs: Abnormal Lab Results - Last 24 Hours (Table) 05/03/18 05/04/18 Range/Units 14:30 08:04 Sodium 136 L 135 L (137-145) mmol/L Potassium 5.3 H (3.5-5.1) mmol/L BUN 6 L (9-20) mg/dL Glucose 103 H 228 H (74-99) mg/dL Creatine Kinase 32 L (55-170) U/L CT Scan - head: report reviewed, image reviewed Assessment and Plan Plan: The patient is a 57-year-old male with a significant history of tobacco abuse. He presents with at least 2 large brain metastases, likely from newly diagnosed lung cancer. 1. Brain metastases: Continue dexamethasone, neuro checks and will order MRI brain. Patient neurologically stable; noted expressive aphasia and mild confusion. Waiting on pathology - patient may benefit from neurosurgical evaluation if this is a non-small cell type lung cancer. 2. Newly diagnosed lung ca: Patient appears to have Stage IV disease. Biopsy of shoulder mass pending - will await final pathology. Requesting outside imaging studies. Patient unfortunately lives alone in [place] with no family support. Brother has expressed some interest in taking him to [place] to live with him - would need to establish with oncology locally. Recommend case management / social work eval. Time with Patient: Greater than 30
[2018-05-04] MEDS: HYDROcodone/APAP 7.5-325MG 1 EACH TAB PO PRN ×3 (16:09→21:28)
--- NOTE | 2018-05-04 17:41 | P.PN ---
Subjective Progress Note Date: 05/04/18 Interval history:57-year-old gentleman came in the emergency department complaints of confusion. Patient is alert and oriented 3 but confused about his regular activities including vacuuming. Unable to dial numbers. Patient was recently diagnosed with the cancer primary unknown patient is scheduled to follow-up with the oncologist Dr. Owen as an outpatient but unable to follow up with him as his bit confused. Since patient brother came home from [facility] he is able to bring the patient to the hospital. Patient is found to have multiple metastatic lesions which is probably causing his confusion in the both the cerebral hemispheres involving parietotemporal lobes. Patient was started on Decadron patient does not have any focal neurological deficits except for confusion. There is significant as indicated edema. Patient the had multiple diagnostic tests before this hospitalization which showed a lesion in the left shoulder area which probably can be biopsied. Patient will be admitted and oncology will be consulted. any fever chills cough runny nose. Patient does not have any weakness or tingling numbness anywhere in the body. 05/04/2018 scapula biopsy completed, pathology pending. Complains of pain at the biopsy site. Alert and oriented 2-3, confused on current events. Difficulty finding words.VSS, afebrile. Maintained on IV Decadron, IV Keppra. Oncology radiologist discussing ordering brain MRI. REVIEW OF SYSTEMS: CONSTITUTIONAL: No fever, no malaise, no fatigue. HEENT: No recent visual problems or hearing problems. Denied any sore throat. CARDIOVASCULAR: No chest pain, orthopnea, PND, no palpitations, no syncope. PULMONARY: No shortness of breath, no cough, no hemoptysis. GASTROINTESTINAL: No diarrhea, no nausea, no vomiting, no abdominal pain. NEUROLOGICAL: No headaches, no weakness, no numbness. HEMATOLOGICAL: Denies any bleeding or petechiae. GENITOURINARY: Denies any burning micturition, frequency, or urgency. MUSCULOSKELETAL/RHEUMATOLOGICAL: Denies any joint pain, swelling, or any muscle pain. ENDOCRINE: Denies any polyuria or polydipsia. The rest of the 14-point review of systems is negative. Active Medications Hydrocodone Bitart/Acetaminophen ([place] 7.5-325) 1 each PO Q4H PRN PRN Reason: Pain Last Admin: 05/04/18 16:09 Dose: 1 each Dexamethasone Sodium Phosphate (Decadron) 6 mg IV Q6HR [facility] Last Admin: 05/04/18 17:15 Dose: 6 mg Famotidine (Pepcid) 20 mg PO BID [facility] Heparin Sodium (Porcine) (Heparin) 5,000 unit SQ Q8HR [facility] Last Admin: 05/04/18 15:21 Dose: Not Given Sodium Chloride ([place] 0.9%) 1,000 mls @ 75 mls/hr IV .[id number] [facility] Last Admin: 05/04/18 05:37 Dose: 75 mls/hr Levetiracetam (Keppra) 500 mg PO Q12HR [facility] Last Admin: 05/04/18 11:00 Dose: 500 mg Naloxone HCl (Narcan) 0.2 mg IV Q2M PRN PRN Reason: Opioid Reversal Objective - Vital Signs Vital signs: Vital Signs Temp 97.5 F L 05/04/18 15:49 Pulse 68 05/04/18 15:49 Resp 18 05/04/18 15:30 BP 126/71 05/04/18 15:49 Pulse Ox 97 05/04/18 15:49 Intake & Output 05/03/18 05/04/18 05/04/18 18:59 06:59 18:59 Intake Total 600 477 Balance 600 477 Weight 65.499 kg 65.499 kg Intake: Intake, IV Titration 600 Amount Sodium Chloride 0.9% 1, 600 000 ml @ 75 mls/hr IV . [id number] [facility] Rx#:[id number] Oral 477 Other: Voiding Method Toilet Toilet # Voids 1 1 - Exam GENERAL: The patient is alert and oriented x3, not in any acute distress. Well developed, well nourished. Patient is bit confused as mentioned in the HPI HEENT: Pupils are round and equally reacting to light. EOMI. No scleral icterus. No conjunctival pallor. Normocephalic, atraumatic. CARDIOVASCULAR: S1 and S2 present. No murmurs, rubs, or gallops. PULMONARY: Chest is clear to auscultation, no wheezing or crackles. ABDOMEN: Soft, nontender, nondistended, normoactive bowel sounds. No palpable organomegaly. MUSCULOSKELETAL: No joint swelling or deformity. EXTREMITIES: No cyanosis, clubbing, or pedal edema. NEUROLOGICAL: Gross neurological examination did not reveal any focal deficits. SKIN: No rashes. - Labs CBC & Chem 7: 05/04/18 08:04 05/04/18 08:04 Labs: Abnormal Lab Results - Last 24 Hours (Table) 05/04/18 Range/Units 08:04 Sodium 135 L (137-145) mmol/L Glucose 228 H (74-99) mg/dL Assessment and Plan Assessment: -Metastatic cancer: Primary unknown-possible lung. patient has brain metastases with vasogenic edema. -Altered mental status secondary to encephalopathy from vasogenic edema, brain metastasis. -Hyperkalemia:resolved -Ongoing nicotine Abuse. 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 Pain management. Scapula biopsy and MRI of brain pending. Maintain Decadron, Keppra. Seizure precautions. Smoking cessation readdressed. GI and DVT prophylaxis with Pepcid and heparin subcu . Oncology consult in place with recommendations pending. Evaluated by oncology radiologist with recommendations noted/pending pathology with brain MRI being ordered. The impression and plan of care has been dictated as directed. : I performed a history and examination of this patient, discussed the same with the dictator. I agree with the dictator's note ,documented as a scribe. Any additional findings or plans will be noted.
[2018-05-04] MEDS: FAMOTIDINE 20 MG TAB PO SCH (21:28)
--- NOTE | 2018-05-05 01:06 | P.CONS ---
History of Present Illness - Reason for Consult Consult date: 05/05/18 Metastatic malignancy - History of Present Illness The pt is a pleasant WM, referred to our office in 04/24. He had been in his usual state of health till a few mths ago, per him. He then developed apin in the left shoulder/left upper back, which progressively increased. The exact time period is not known. He apparently had to stop working and go on diability. He also claimed to have had some w/u in the [place] area, but no results are available He was seen by Ortho locally and imaging was done, revealing a destructive lesion involving the left scapula. This led to the referral. Prior to his visit, CT CAP, and bone scan were done at [facility], with the following results: CT CAP : COPD WITH MODERATE TO ADVANCED EMPHYSEMA. THERE IS A 2.3 CM SPICULATED RIGHT UPPER LOBE NODULE, RIGHT HILAR LYMPHADENOPATHY MEASURING UP TO 2.1 CM AND RIGHT TRACHEOBRONCHIAL ANGLE LYMPH NODE MEASURING 1.1 CM. FINDINGS SUSPICIOUS FOR LUNG CANCER WITH METASTATIC DISEASE. 2. NONSPECIFIC 7 MM SPICULATED NODULE AT THE RIGHT APEX COULD REPRESENT A METASTATIC SATELLITE NODULE. THERE ARE BILATERAL ADRENAL GLAND MASSES MEASURING UP TO 6.5 CM ON THE LEFT AND 4.5 CM ON THE RIGHT, AND A PERITONEAL DEPOSIT ADJACENT TO THE GALLBLADDER MEASURING 1.4 CM ALSO SUSPICIOUS FOR METASTATIC DISEASE. 3. FOCAL IRREGULAR PATCHY OPACITY HAS A NON MASSLIKE CONFIGURATION IN THE RIGHT MIDLUNG AND COULD REPRESENT DEVELOPING PNEUMONIA. CLINICALLY CORRELATE. THIS SHOULD BE REASSESSED AT FOLLOW-UP. 4. A COUPLE SUBCENTIMETER HYPODENSITIES IN THE LEFT LIVER LOBE ARE TOO SMALL FOR ACCURATE CT CHARACTERIZATION AND PROBABLY REPRESENT SMALL CYSTS. BONE SCAN : FINDINGS: There is intense radiotracer activity noted to involve the left scapular neck region corresponding to the CT abnormality which demonstrates destructive lesion. There is also focal increased uptake noted to involve the distal left clavicle also corresponding to an abnormality seen at CT. There is also a focal area of increased uptake involving the right humeral head medially. On CT there is a lytic lesion noted in this region as well. There is intense uptake to involve S1 with no corresponding CT abnormality. In addition there is increased uptake noted to involve the proximal one third of the right tibial diaphysis. The head is rotated however there is increased uptake right parietal calvarium. IMPRESSION Findings compatible with metastatic disease to the bone. Abnormal uptake about the calvarium and the right tibia can be confirmed radiographically The pt did not come to his appt as he was apparently confused, and unable to remember. He was also unable to perform functions such dialling on his phone. The pt was unable to give the exact timeline. His brother thus came here from [facility], and brought him to the ER. CT of the brain revealed multiple bran mets, b/l with the largest 3.6 cm in the rt parietal area. case was d/w the ER physician in detail, and the pt admitted on IV decadron. He denied any prior h/o cancer. He has ah/o smoking 1+ PPD since his teens. Review of Systems Constitutional: Reports chronic pain, Reports fatigue, Reports weakness, Reports weight loss Eyes: denies blurred vision, denies pain Ears: deny: decreased hearing, ear discharge, earache, tinnitus Ears, nose, mouth and throat: Denies headache, Denies sore throat Cardiovascular: Denies chest pain, Denies shortness of breath Respiratory: Denies cough Gastrointestinal: Denies abdominal pain, Denies diarrhea, Denies nausea, Denies vomiting Genitourinary: Reports as per HPI Musculoskeletal: left: shoulder pain Integumentary: Denies pruritus, Denies rash Neurological: Reports confusion, Reports lack of coordination, Reports memory loss, Reports weakness Psychiatric: Reports confusion, Reports difficulty concentrating, Reports memory loss Endocrine: Reports fatigue, Reports weight change Hematologic/Lymphatic: Reports as per HPI Past Medical History Past Medical History: No Reported History History of Any Multi-Drug Resistant Organisms: None Reported Past Surgical History: Orthopedic Surgery Additional Past Surgical History / Comment(s): right elbow Past Anesthesia/Blood Transfusion Reactions: No Reported Reaction Past Psychological History: No Psychological Hx Reported Smoking Status: Current every day smoker (1 pack/day x 30 years at least) Past Alcohol Use History: None Reported Past Drug Use History: None Reported - Past Family History Brother(s) Family Medical History: Coronary Artery Disease (CAD) Mother Family Medical History: Cancer Additional Family Medical History / Comment(s): lung Medications and Allergies Home Medications Medication Instructions Recorded Confirmed Type HYDROcodone/APAP 5-325MG [Lostant 1 tab PO Q4HR PRN 05/03/18 05/03/18 History 5-325] Allergies Allergy/AdvReac Type Severity Reaction Status Date / Time No Known Allergies Allergy Verified 05/03/18 13:33 Physical Exam Vitals: Vital Signs Temp Pulse Resp BP Pulse Ox 05/04/18 20:23 97.6 F 79 18 130/75 97 05/04/18 19:53 96 05/04/18 15:49 97.5 F L 68 126/71 97 05/04/18 15:30 74 18 132/74 96 05/04/18 15:15 70 18 122/68 98 05/04/18 15:00 78 115/61 98 05/04/18 14:37 76 18 128/65 97 05/04/18 13:24 80 20 122/68 05/04/18 08:23 97.9 F 92 16 115/72 95 05/04/18 07:24 98.5 F 89 126/82 98 Intake and Output 05/04/18 05/04/18 05/05/18 14:59 22:59 06:59 Intake Total 477 Balance 477 Intake: Oral 477 Other: Voiding Method Toilet # Voids 1 Weight 65.499 kg - Constitutional General appearance: no acute distress - EENT Eyes: EOMI, PERRLA ENT: hearing grossly normal, normal oropharynx - Neck Neck: no lymphadenopathy Thyroid: bilateral: normal size - Respiratory Respiratory: bilateral: CTA - Cardiovascular Rhythm: regular Heart sounds: normal: S1, S2 - Gastrointestinal General gastrointestinal: normal bowel sounds, soft - Integumentary Integumentary: normal - Neurologic Neurologic: CNII-XII intact - Musculoskeletal mild tenderness to palpation over lower left scapula Musculoskeletal: generalized weakness, strength equal bilaterally - Psychiatric A, O x 1-2. Recall poor. However, alert, follows commands appropriately Results CBC & Chem 7: 05/04/18 08:04 05/04/18 08:04 Labs: Abnormal Lab Results - Last 24 Hours (Table) 05/04/18 Range/Units 08:04 Sodium 135 L (137-145) mmol/L Glucose 228 H (74-99) mg/dL Comments: report of bone scan reviewed CT scan - abdomen: report reviewed CT scan - chest: report reviewed CT Scan - head: report reviewed CT scan - pelvis: report reviewed Assessment and Plan (1) Metastatic cancer to brain Narrative/Plan: The pt is presenting with widely metatstatic cancer, including brain involvement as noted. He has been symptomatic from the same, only for a few days per him - Case d/w ER physician, Rad Onc and IM in detail. He was started on IV steroids and then admitted. THere was concern re need for neurosurgical intervention, given the large size of the largest brain mass. However the pt is has no sensory or motor deficit, and has improved since starting steroids. A MRI will be ordered. If there is no evidence of any major midline shift, or early herniation, he will be treated with WBRT at this time, based on the clinical picture, a lung primary is most likely. IR has been consulted for biopsy. Further recs , depending on biopsy results Current Visit: Yes Status: Acute Code(s): C79.31 - SECONDARY MALIGNANT NEOPLASM OF BRAIN SNOMED Code(s): 73352223 (2) Shoulder pain Narrative/Plan: Neoplasm related. Improved with steroids and pain meds. he will likely require palliative RT to this area additionally Current Visit: No Status: Acute Code(s): M25.519 - PAIN IN UNSPECIFIED SHOULDER SNOMED Code(s): 34011606 Plan: The pt has no support here and lives alone. Social work consult
[2018-05-05] MEDS: DEXAMETHASONE SOD PHOSPHATE 10 MG/ML 1 ML VIAL IV SCH ×4 (01:25→17:14)
[2018-05-05] MEDS: HEPARIN SODIUM,PORCINE 5,000 UNIT/ML 1 ML VIAL SQ SCH ×3 (01:25→17:14)
[2018-05-05] MEDS: SODIUM CHLORIDE 0.9% 1,000 ML IV SCH (11:02)
[2018-05-05] MEDS: FAMOTIDINE 20 MG TAB PO SCH ×2 (11:03→22:11)
[2018-05-05] MEDS: levETIRAcetam 500 MG TAB PO SCH ×2 (11:03→22:11)
--- NOTE | 2018-05-05 13:56 | MR ---
EXAMINATION TYPE: MR brain wo/w con DATE OF EXAM: 05/05/2018 COMPARISON: CT brain May 03, 2018 HISTORY: Altered mental status, brain mets, recent cancer diagnosis of unknown origin TECHNIQUE: Multiplanar, multisequence images of the brain and brainstem is performed without and with IV contras t, utilizing 6.5 mL intravenous Gadavist . FINDINGS: Diffusion weighted images demonstrate no evidence of a recent infarct or other diffusion ab normality. The ventricular system and cisternal spaces are normal in size and appearance. The bra in volume is age appropriate. Midline structures demonstrate normal morphology. The craniocervical junction appears within normal limits. Post contrast images redemonstrate large homogeneous enhancing high right frontal mass with dural extension or tail on coronal and sagittal images measuring 3.4 cm AP by 2.9 cm transversely axi al image 30 x 2.5 cm craniocaudal dimension sagittal image 92. There is significant local mass effect with vasogenic edema extending inferiorly to level of right lateral ventricles. This lesion favors e xtra-axial tumor or meningioma. There is however rim-enhancing mass measuring 3.4 x 4.1 cm transversely axial image 18 x 4.2 cm crani ocaudal dimension sagittal image 50 with significant surrounding T2 hyperintensity or vasogenic edema left parietal region felt to reflect metastatic focus given patient's history of recent cancer of un known origin. No additional suspicious enhancing or rim-enhancing masses identified bilaterally. The dural venous sinuses appear patent. The visualized sinuses are clear and the globes are intact. IMPRESSION: 1. Confirmation of left parietal intraparenchymal metastatic lesion with local mass effect. 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 No additional lesions are meet rly identified on MRI.
--- NOTE | 2018-05-05 14:57 | PN ---
PROGRESS NOTE DATE OF SERVICE: 05/05/2018. CHIEF COMPLAINT: Tired. Td were seen today in followup. He feels tired. He just came back from his brain MRI. Overall he is ambulating better. His confusion is better. No significant headaches. No nausea or vomiting. It seems like he is improving with steroids. PHYSICAL EXAMINATION: He is alert, oriented x3. Does answers questions appropriately. His vital signs are temperature 98, afebrile, pulse 92 and regular, respirations 16, blood pressure 120/79. HEENT: Normocephalic, atraumatic. NECK: Supple. CHEST: Equal expansion bilaterally. LUNGS: Clear to auscultation. HEART: Regular rate, rhythm. ABDOMEN: Soft. No tenderness. Extremities reveal no edema. LABORATORY DATA: WBC of 9.5, hemoglobin 16.2, hematocrit 48.5, platelets 250. Sodium 135, potassium 4.5, chloride 101. CO2 is 24. Creatinine is 0.7. IMPRESSION: Clinical and radiographic picture consistent with metastatic bronchogenic carcinoma with multiple large brain metastases. The patient appears to be neurologically stable and slowly improving with steroid, which was started upon admission. RECOMMENDATIONS: 1. Will await the results of brain MRI. 2. Also await results of recent biopsy to confirm his diagnosis. 3. Continue steroids for now. 4. The patient will likely require whole-brain radiation. The above was discussed with the patient and his brother at bedside. I answered all their questions to their satisfaction. Thank you very much. MMODL / IJN: [id number] /
--- NOTE | 2018-05-05 15:50 | P.PN ---
Subjective 57-year-old gentleman came in the emergency department complaints of confusion. Patient is alert and oriented 3 but confused about his regular activities including vacuuming. Unable to dial numbers. Patient was recently diagnosed with the cancer primary unknown patient is scheduled to follow-up with the oncologist Dr. Owen as an outpatient but unable to follow up with him as his bit confused. Since patient brother came home from [facility] he is able to bring the patient to the hospital. Patient is found to have multiple metastatic lesions which is probably causing his confusion in the both the cerebral hemispheres involving parietotemporal lobes. Patient was started on Decadron patient does not have any focal neurological deficits except for confusion. There is significant as indicated edema. Patient the had multiple diagnostic tests before this hospitalization which showed a lesion in the left shoulder area which probably can be biopsied. Patient will be admitted and oncology will be consulted. any fever chills cough runny nose. Patient does not have any weakness or tingling numbness anywhere in the body. 05/04/2018 scapula biopsy completed, pathology pending. Complains of pain at the biopsy site. Alert and oriented 2-3, confused on current events. Difficulty finding words.VSS, afebrile. Maintained on IV Decadron, IV Keppra. Oncology radiologist discussing ordering brain MRI. 05/05/2018 Patient is doing well does have memory deficits of can you with IV steroid possibly of discharge tomorrow MRI was obtained which showed significant brain lesions one in the right frontal and the other one is in the left parietal lobe with significant vasogenic edema possibly of discharge tomorrow with further workup as an outpatient. Constitutional: Denied any fatigue denied any fever. Cardio vascular: denied any chest pain, palpitations Gastrointestinal denied any nausea vomiting Pulmonary: Denied any shortness of breath cough Neurologic denied any new focal deficits All inpatient medications were reviewed and appropriate changes in these medications as dictated in the interval history and assessment and plan. Objective - Vital Signs Vital signs: Vital Signs Temp 98.0 F 05/05/18 15:00 Pulse 75 05/05/18 15:00 Resp 16 05/05/18 15:00 BP 124/66 05/05/18 15:00 Pulse Ox 97 05/05/18 15:00 Intake & Output 05/04/18 05/05/18 05/05/18 18:59 06:59 18:59 Intake Total 477 Balance 477 Weight 65.499 kg Intake: Oral 477 Other: Voiding Method Toilet # Voids 1 2 - Exam GENERAL: The patient is alert and oriented x3, not in any acute distress. Well developed, well nourished. Patient is bit confused as mentioned in the HPI HEENT: Pupils are round and equally reacting to light. EOMI. No scleral icterus. No conjunctival pallor. Normocephalic, atraumatic. CARDIOVASCULAR: S1 and S2 present. No murmurs, rubs, or gallops. PULMONARY: Chest is clear to auscultation, no wheezing or crackles. ABDOMEN: Soft, nontender, nondistended, normoactive bowel sounds. No palpable organomegaly. MUSCULOSKELETAL: No joint swelling or deformity. EXTREMITIES: No cyanosis, clubbing, or pedal edema. NEUROLOGICAL: Gross neurological examination did not reveal any focal deficits. SKIN: No rashes. - Labs CBC & Chem 7: 05/04/18 08:04 05/04/18 08:04 Assessment and Plan Plan: -Metastatic cancer: Primary unknown-possible lung. patient has brain metastases with vasogenic edema. MRI showed the same lesions. Possibly of discharge tomorrow no will steroid. -Altered mental status secondary to encephalopathy from vasogenic edema, brain metastasis. -Hyperkalemia:resolved -Ongoing nicotine Abuse. -Metastatic cancer to the left shoulder area causing shoulder pain
[2018-05-06] MEDS: DEXAMETHASONE SOD PHOSPHATE 10 MG/ML 1 ML VIAL IV SCH ×5 (00:04→23:59)
[2018-05-06] MEDS: HEPARIN SODIUM,PORCINE 5,000 UNIT/ML 1 ML VIAL SQ SCH ×4 (00:22→23:59)
[2018-05-06] MEDS: SODIUM CHLORIDE 0.9% 1,000 ML IV SCH ×2 (06:32→12:30)
[2018-05-06] MEDS: levETIRAcetam 500 MG TAB PO SCH ×2 (09:12→21:59)
[2018-05-06] MEDS: FAMOTIDINE 20 MG TAB PO SCH ×2 (09:12→22:00)
--- NOTE | 2018-05-06 13:15 | P.PN ---
Subjective 57-year-old gentleman came in the emergency department complaints of confusion. Patient is alert and oriented 3 but confused about his regular activities including vacuuming. Unable to dial numbers. Patient was recently diagnosed with the cancer primary unknown patient is scheduled to follow-up with the oncologist Dr. Owen as an outpatient but unable to follow up with him as his bit confused. Since patient brother came home from [facility] he is able to bring the patient to the hospital. Patient is found to have multiple metastatic lesions which is probably causing his confusion in the both the cerebral hemispheres involving parietotemporal lobes. Patient was started on Decadron patient does not have any focal neurological deficits except for confusion. There is significant as indicated edema. Patient the had multiple diagnostic tests before this hospitalization which showed a lesion in the left shoulder area which probably can be biopsied. Patient will be admitted and oncology will be consulted. any fever chills cough runny nose. Patient does not have any weakness or tingling numbness anywhere in the body. 05/04/2018 scapula biopsy completed, pathology pending. Complains of pain at the biopsy site. Alert and oriented 2-3, confused on current events. Difficulty finding words.VSS, afebrile. Maintained on IV Decadron, IV Keppra. Oncology radiologist discussing ordering brain MRI. 05/05/2018 Patient is doing well does have memory deficits of can you with IV steroid possibly of discharge tomorrow MRI was obtained which showed significant brain lesions one in the right frontal and the other one is in the left parietal lobe with significant vasogenic edema possibly of discharge tomorrow with further workup as an outpatient. 05/06/2018 No overnight events patient continued to improve, patient probably can be discharged tomorrow after sitting up outpatient appointments for whole brain radiation. Patient memory is bit better compared to yesterday Constitutional: Denied any fatigue denied any fever. Cardio vascular: denied any chest pain, palpitations Gastrointestinal denied any nausea vomiting Pulmonary: Denied any shortness of breath cough Neurologic denied any new focal deficits All inpatient medications were reviewed and appropriate changes in these medications as dictated in the interval history and assessment and plan. Objective - Vital Signs Vital signs: Vital Signs Temp 97.5 F L 05/06/18 09:10 Pulse 80 05/06/18 09:10 Resp 16 05/06/18 09:10 BP 114/67 05/06/18 09:10 Pulse Ox 98 05/06/18 09:10 Intake & Output 05/05/18 05/06/18 05/06/18 18:59 06:59 18:59 Intake Total 240 600 240 Balance 240 600 240 Intake: Oral 240 600 240 Other: # Voids 2 1 - Exam GENERAL: The patient is alert and oriented x3, not in any acute distress. Well developed, well nourished. Patient is bit confused as mentioned in the HPI HEENT: Pupils are round and equally reacting to light. EOMI. No scleral icterus. No conjunctival pallor. Normocephalic, atraumatic. CARDIOVASCULAR: S1 and S2 present. No murmurs, rubs, or gallops. PULMONARY: Chest is clear to auscultation, no wheezing or crackles. ABDOMEN: Soft, nontender, nondistended, normoactive bowel sounds. No palpable organomegaly. MUSCULOSKELETAL: No joint swelling or deformity. EXTREMITIES: No cyanosis, clubbing, or pedal edema. NEUROLOGICAL: Gross neurological examination did not reveal any focal deficits. SKIN: No rashes. - Labs CBC & Chem 7: 05/04/18 08:04 05/04/18 08:04 Assessment and Plan Plan: -Metastatic cancer: Primary unknown-possible lung. patient has brain metastases with vasogenic edema. MRI showed the same lesions. Patient will require whole brain radiation continue with present treatment treatments patient will be discharged tomorrow after evaluation by radiation oncology -Altered mental status secondary to encephalopathy from vasogenic edema, brain metastasis. -Hyperkalemia:resolved -Ongoing nicotine Abuse. -Metastatic cancer to the left shoulder area causing shoulder pain
[2018-05-07] MEDS: SODIUM CHLORIDE 0.9% 1,000 ML IV SCH (03:40)
[2018-05-07] MEDS: DEXAMETHASONE SOD PHOSPHATE 10 MG/ML 1 ML VIAL IV SCH ×2 (06:07→12:55)
[2018-05-07] MEDS: HEPARIN SODIUM,PORCINE 5,000 UNIT/ML 1 ML VIAL SQ SCH (08:54)
[2018-05-07] MEDS: FAMOTIDINE 20 MG TAB PO SCH (08:54)
[2018-05-07] MEDS: levETIRAcetam 500 MG TAB PO SCH (08:54)
[2018-05-07 15:11] VITALS: BP 117/82; PULSE 106; RESP 18; TEMP 98.7
--- NOTE | 2018-05-07 16:13 | P.DS ---
Providers Date of admission: 05/03/18 16:40 Expected date of discharge: 05/07/18 Attending physician: Elvi Lucio Consults: 05/03/18 16:41 Consult Physician Urgent Consulting Provider: Keo Owen Consult Reason/Comments: Oncological care Do you want consulting provider notified?: Already Contacted 05/04/18 08:06 Consult Physician Routine Consulting Provider: Matias Baker Consult Reason/Comments: Brain and bone mets, cancer related pain Do you want consulting provider notified?: Yes Primary care physician: Stated None Hospital Course: Final Diagnoses: -Metastatic cancer: Primary unknown-possible lung. patient has brain metastases with vasogenic edema. MRI showed the same lesions. -Altered mental status secondary to encephalopathy from vasogenic edema, brain metastasis. -Hyperkalemia:resolved -Ongoing nicotine Abuse. 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 Patient is alert and oriented 3 but confused about his regular activities including vacuuming. Unable to dial numbers. Patient was recently diagnosed with the cancer primary unknown patient is scheduled to follow-up with the oncologist Dr. Owen as an outpatient but unable to follow up with him as his bit confused. Since patient brother came home from my [place] he is able to bring the patient to the hospital. Patient is found to have multiple metastatic lesions which is probably causing his confusion in the both the cerebral hemispheres involving parietotemporal lobes. Patient was started on Decadron patient does not have any focal neurological deficits except for confusion. There is significant as indicated edema. Patient the had multiple diagnostic tests before this hospitalization which showed a lesion in the left shoulder area which probably can be biopsied. Patient will be admitted and oncology will be consulted. any fever chills cough runny nose. Patient does not have any weakness or tingling numbness anywhere in the body. 05/04/2018 scapula biopsy completed, pathology pending. Complains of pain at the biopsy site. Alert and oriented 2-3, confused on current events. Difficulty finding words.VSS, afebrile. Maintained on IV Decadron, IV Keppra. Oncology radiologist discussing ordering brain MRI. 05/05/2018 Patient is doing well does have memory deficits of can you with IV steroid possibly of discharge tomorrow MRI was obtained which showed significant brain lesions one in the right frontal and the other one is in the left parietal lobe with significant vasogenic edema possibly of discharge tomorrow with further workup as an outpatient. 05/06/2018 No overnight events patient continued to improve, patient probably can be discharged tomorrow after sitting up outpatient appointments for whole brain radiation. Patient memory is bit better compared to yesterday 05/07/18 no over events. VSS. Core biopsy of left scapula mass pathology pending. Continue on dexamethasone. Patient is scheduled to meet with radiation oncology tomorrow outpatient. Cleared by all consults for discharge. Patient is being discharged home with brother in a stable condition with guarded prognosis. - Exam GENERAL: The patient is alert and oriented x3, not in any acute distress. HEENT: Pupils are round and equally reacting to light. EOMI. No scleral icterus. No conjunctival pallor. Normocephalic, atraumatic. CARDIOVASCULAR: S1 and S2 present. No murmurs, rubs, or gallops. PULMONARY: Chest is clear to auscultation, no wheezing or crackles. ABDOMEN: Soft, nontender, nondistended, normoactive bowel sounds. No palpable organomegaly. NEUROLOGICAL: Gross neurological examination did not reveal any focal deficits. The impression and plan of care has been dictated as directed. : I performed a history and examination of this patient, discussed the same with the dictator. I agree with the dictator's note ,documented as a scribe. Any additional findings or plans will be noted. Time taken: 35 minutes Patient Condition at Discharge: Stable Plan - Discharge Summary Discharge Rx Participant: Yes New Discharge Prescriptions: New Famotidine [Pepcid] 20 mg PO BID #60 tab levETIRAcetam [Keppra] 500 mg PO Q12HR #60 tab Dexamethasone 4 mg PO Q6H #120 tablet Continue HYDROcodone/APAP 5-325MG [[place] 5-325] 1 tab PO Q4HR PRN PRN Reason: Pain Discharge Medication List HYDROcodone/APAP 5-325MG [[place] 5-325] 1 tab PO Q4HR PRN 05/03/18 [History] Dexamethasone 4 mg PO Q6H #120 tablet 05/07/18 [Rx] Famotidine [Pepcid] 20 mg PO BID #60 tab 05/07/18 [Rx] levETIRAcetam [Keppra] 500 mg PO Q12HR #60 tab 05/07/18 [Rx] Follow up Appointment(s)/Referral(s): Keo Owen MD [STAFF PHYSICIAN] - 1 Week (Dr. Owen Office will contact the patient ) Bubba Jewell MD [REFERRING] - 05/11/18 2:30 pm Cordelia Montes De Oca MD [STAFF PHYSICIAN] - 1 Week Matias Baker MD [STAFF PHYSICIAN] - 05/08/18 10:30 am Ambulatory/Diagnostic Orders: Basic Metabolic Panel [LAB.AMB] Time Frame: 3 Days, Location: None Selected Patient Instructions/Handouts: Altered Mental Status (GEN) Activity/Diet/Wound Care/Special Instructions: Decadron Taper RX as per Oncology, phoned in..Pending final DC recommendations and clearance from radiation oncology and oncology.
== END 2018-05-07 15:23 | disposition home or self-care (01) | DRG 54 ==
LOC: EC 12:49 → 3NMEDONC 16:40 → 4SSUR 18:35
PROVIDERS: ADMIT Internal Medicine; ATTEND Internal Medicine
PROC: 0JB63ZX Excision of Chest Subcutaneous Tissue and Fascia, Percutaneous Approach, Diagnostic (ICD-10-PCS; principal; 2018-05-04)
DX: C79.31 Secondary malignant neoplasm of brain (principal); G93.41 Metabolic encephalopathy; G93.6 Cerebral edema; C79.51 Secondary malignant neoplasm of bone; C79.72 Secondary malignant neoplasm of left adrenal gland; C79.71 Secondary malignant neoplasm of right adrenal gland; C34.90 Malignant neoplasm of unspecified part of unspecified bronchus or lung; R47.01 Aphasia; E87.5 Hyperkalemia; F17.210 Nicotine dependence, cigarettes, uncomplicated; G89.3 Neoplasm related pain (acute) (chronic); J43.9 Emphysema, unspecified; Z82.49 Family history of ischemic heart disease and other diseases of the circulatory system; Z80.9 Family history of malignant neoplasm, unspecified
CPT/HCPCS: 20206; 36415; 70470; 70553; 71046; 76942; 80048; 80053; 80306; 81003; 82140; 82550; 85025; 85027; 85610; 85730; 88305; 88341; 88342; 93005; 94760; 96374; 99285

== ENCOUNTER 2018-06-03 16:58 | Inpatient (IN) | payer OTHER ==
[2018-06-03] MEDS ORDERED: SODIUM CHLORIDE 0.9% 1,000 ML IV ONE ×2 (17:13)
--- NOTE | 2018-06-03 17:15 | ED ---
Altered Mental Status HPI - General Chief Complaint: Altered Mental Status Stated Complaint: altered mental status Time Seen by Provider: 06/03/18 17:12 Source: patient, RN notes reviewed, old records reviewed Mode of arrival: ambulatory Limitations: no limitations - History of Present Illness Initial Comments: This is a 57-year-old male the ER for evaluation. Presents today for evaluation of altered mental status. Patient is unable to give history history is obtained from patient's chart and prior charting. Patient is unable to answer questions appropriately. Confused MD Complaint: altered mental status, confusion -: hour(s) Severity: moderate Consistency of Symptoms: waxing and waning, getting worse Context: other (Cancer) Associated Symptoms: weakness - Related Data Home Medications Medication Instructions Recorded Confirmed No Known Home Medications 06/03/18 06/03/18 Allergies Allergy/AdvReac Type Severity Reaction Status Date / Time No Known Allergies Allergy Verified 06/03/18 17:36 Review of Systems ROS Statement: Those systems with pertinent positive or pertinent negative responses have been documented in the HPI. ROS Other: All systems not noted in ROS Statement are negative. Past Medical History Past Medical History: No Reported History History of Any Multi-Drug Resistant Organisms: None Reported Past Surgical History: Orthopedic Surgery Additional Past Surgical History / Comment(s): right elbow Past Anesthesia/Blood Transfusion Reactions: No Reported Reaction Past Psychological History: No Psychological Hx Reported Smoking Status: Former smoker Past Alcohol Use History: None Reported Past Drug Use History: None Reported - Past Family History Brother(s) Family Medical History: Coronary Artery Disease (CAD) Mother Family Medical History: Cancer Additional Family Medical History / Comment(s): lung General Exam Limitations: altered mental status General appearance: alert, in no apparent distress Head exam: Present: atraumatic, normocephalic, normal inspection Eye exam: Present: normal appearance, PERRL, EOMI. Absent: scleral icterus, conjunctival injection, periorbital swelling ENT exam: Present: normal exam, mucous membranes moist Neck exam: Present: normal inspection. Absent: tenderness, meningismus, lymphadenopathy Respiratory exam: Present: normal lung sounds bilaterally. Absent: respiratory distress, wheezes, rales, rhonchi, stridor Cardiovascular Exam: Present: regular rate, normal rhythm, tachycardia, normal heart sounds. Absent: systolic murmur, diastolic murmur, rubs, gallop, clicks GI/Abdominal exam: Present: soft, normal bowel sounds. Absent: distended, tenderness, guarding, rebound, rigid Extremities exam: Present: normal inspection, full ROM, normal capillary refill. Absent: tenderness, pedal edema, joint swelling, calf tenderness Back exam: Present: normal inspection Neurological exam: Present: alert, oriented X3, CN II-XII intact Psychiatric exam: Present: normal affect, normal mood Skin exam: Present: warm, dry, intact, normal color. Absent: rash Course Vital Signs 06/03/18 06/03/18 06/03/18 17:07 18:00 19:00 Temperature 98.2 F Pulse Rate 105 H 93 95 Respiratory 18 16 18 Rate Blood Pressure 138/89 102/82 128/87 O2 Sat by Pulse 99 99 96 Oximetry - Reevaluation(s) Reevaluation #1: 06/03/18 20:27 Medical record reviewed, patient found to have metastatic lung cancer lung to brain. Reevaluation #2: 06/03/18 20:27 Patient showing no improvement in mental status - Consultations Consultation #1: Spoke with Dr. Fischer regarding patient, he is familiar and aware, patient's kimberly ent on steroids and admission Medical Decision Making - Lab Data Result diagrams: 06/03/18 17:29 06/03/18 17:29 Lab Results 06/03/18 06/03/18 06/03/18 Range/Units 17:29 17:29 17:29 WBC 11.8 H (3.8-10.6) k/uL RBC 5.37 (4.30-5.90) m/uL Hgb 15.6 (13.0-17.5) gm/dL Hct 46.6 (39.0-53.0) % MCV 86.8 (80.0-100.0) fL MCH 29.0 (25.0-35.0) pg MCHC 33.4 (31.0-37.0) g/dL RDW 13.4 (11.5-15.5) % Plt Count 275 (150-450) k/uL Neutrophils % 81 % Lymphocytes % 11 % Monocytes % 5 % Eosinophils % 1 % Basophils % 1 % Neutrophils # 9.6 H (1.3-7.7) k/uL Lymphocytes # 1.3 (1.0-4.8) k/uL Monocytes # 0.6 (0-1.0) k/uL Eosinophils # 0.1 (0-0.7) k/uL Basophils # 0.1 (0-0.2) k/uL PT (9.0-12.0) sec INR (<1.2) APTT (22.0-30.0) sec Sodium (137-145) mmol/L Potassium (3.5-5.1) mmol/L Chloride (98-107) mmol/L Carbon Dioxide (22-30) mmol/L Anion Gap mmol/L BUN (9-20) mg/dL Creatinine (0.66-1.25) mg/dL Est GFR (CKD-EPI)AfAm (>60 ml/min/1.73 sqM) Est GFR (CKD-EPI)NonAf (>60 ml/min/1.73 sqM) Glucose (74-99) mg/dL Calcium (8.4-10.2) mg/dL Phosphorus (2.5-4.5) mg/dL Magnesium (1.6-2.3) mg/dL Total Bilirubin (0.2-1.3) mg/dL AST (17-59) U/L ALT (21-72) U/L Alkaline Phosphatase (38-126) U/L Ammonia <9 (<30) umol/L Troponin I (0.000-0.034) ng/mL Total Protein (6.3-8.2) g/dL Albumin (3.5-5.0) g/dL Urine Color Urine Appearance (Clear) Urine pH (5.0-8.0) Ur Specific [place] (1.001-1.035) Urine Protein (Negative) Urine Glucose (UA) (Negative) Urine Ketones (Negative) Urine Blood (Negative) Urine Nitrite (Negative) Urine Bilirubin (Negative) Urine Urobilinogen (<2.0) mg/dL Ur Leukocyte Esterase (Negative) Serum Alcohol mg/dL Influenza Type A RNA Not Detected (Not Detectd) Influenza Type B (PCR) Not Detected (Not Detectd) 06/03/18 06/03/18 06/03/18 Range/Units 17:29 17:29 17:29 WBC (3.8-10.6) k/uL RBC (4.30-5.90) m/uL Hgb (13.0-17.5) gm/dL Hct (39.0-53.0) % MCV (80.0-100.0) fL MCH (25.0-35.0) pg MCHC (31.0-37.0) g/dL RDW (11.5-15.5) % Plt Count (150-450) k/uL Neutrophils % % Lymphocytes % % Monocytes % % Eosinophils % % Basophils % % Neutrophils # (1.3-7.7) k/uL Lymphocytes # (1.0-4.8) k/uL Monocytes # (0-1.0) k/uL Eosinophils # (0-0.7) k/uL Basophils # (0-0.2) k/uL PT 9.6 (9.0-12.0) sec INR 0.9 (<1.2) APTT 23.8 (22.0-30.0) sec Sodium 135 L (137-145) mmol/L Potassium 5.1 (3.5-5.1) mmol/L Chloride 101 (98-107) mmol/L Carbon Dioxide 28 (22-30) mmol/L Anion Gap 6 mmol/L BUN 13 (9-20) mg/dL Creatinine 0.77 (0.66-1.25) mg/dL Est GFR (CKD-EPI)AfAm >90 (>60 ml/min/1.73 sqM) Est GFR (CKD-EPI)NonAf >90 (>60 ml/min/1.73 sqM) Glucose 85 (74-99) mg/dL Calcium 9.1 (8.4-10.2) mg/dL Phosphorus 4.1 (2.5-4.5) mg/dL Magnesium 2.1 (1.6-2.3) mg/dL Total Bilirubin 1.1 (0.2-1.3) mg/dL AST 29 (17-59) U/L ALT 43 (21-72) U/L Alkaline Phosphatase 93 (38-126) U/L Ammonia (<30) umol/L Troponin I <0.012 (0.000-0.034) ng/mL Total Protein 6.7 (6.3-8.2) g/dL Albumin 3.5 (3.5-5.0) g/dL Urine Color Urine Appearance (Clear) Urine pH (5.0-8.0) Ur Specific [place] (1.001-1.035) Urine Protein (Negative) Urine Glucose (UA) (Negative) Urine Ketones (Negative) Urine Blood (Negative) Urine Nitrite (Negative) Urine Bilirubin (Negative) Urine Urobilinogen (<2.0) mg/dL Ur Leukocyte Esterase (Negative) Serum Alcohol <10 mg/dL Influenza Type A RNA (Not Detectd) Influenza Type B (PCR) (Not Detectd) 06/03/18 Range/Units 20:00 WBC (3.8-10.6) k/uL RBC (4.30-5.90) m/uL Hgb (13.0-17.5) gm/dL Hct (39.0-53.0) % MCV (80.0-100.0) fL MCH (25.0-35.0) pg MCHC (31.0-37.0) g/dL RDW (11.5-15.5) % Plt Count (150-450) k/uL Neutrophils % % Lymphocytes % % Monocytes % % Eosinophils % % Basophils % % Neutrophils # (1.3-7.7) k/uL Lymphocytes # (1.0-4.8) k/uL Monocytes # (0-1.0) k/uL Eosinophils # (0-0.7) k/uL Basophils # (0-0.2) k/uL PT (9.0-12.0) sec INR (<1.2) APTT (22.0-30.0) sec Sodium (137-145) mmol/L Potassium (3.5-5.1) mmol/L Chloride (98-107) mmol/L Carbon Dioxide (22-30) mmol/L Anion Gap mmol/L BUN (9-20) mg/dL Creatinine (0.66-1.25) mg/dL Est GFR (CKD-EPI)AfAm (>60 ml/min/1.73 sqM) Est GFR (CKD-EPI)NonAf (>60 ml/min/1.73 sqM) Glucose (74-99) mg/dL Calcium (8.4-10.2) mg/dL Phosphorus (2.5-4.5) mg/dL Magnesium (1.6-2.3) mg/dL Total Bilirubin (0.2-1.3) mg/dL AST (17-59) U/L ALT (21-72) U/L Alkaline Phosphatase (38-126) U/L Ammonia (<30) umol/L Troponin I (0.000-0.034) ng/mL Total Protein (6.3-8.2) g/dL Albumin (3.5-5.0) g/dL Urine Color Yellow Urine Appearance Clear (Clear) Urine pH 5.5 (5.0-8.0) Ur Specific [place] 1.011 (1.001-1.035) Urine Protein Negative (Negative) Urine Glucose (UA) Negative (Negative) Urine Ketones Negative (Negative) Urine Blood Negative (Negative) Urine Nitrite Negative (Negative) Urine Bilirubin Negative (Negative) Urine Urobilinogen <2.0 (<2.0) mg/dL Ur Leukocyte Esterase Negative (Negative) Serum Alcohol mg/dL Influenza Type A RNA (Not Detectd) Influenza Type B (PCR) (Not Detectd) - EKG Data -: EKG Interpreted by Me (EKG shows sinus rhythm rate of 93, [place] 134, QRS 80, QTC 450) Disposition Clinical Impression: Metastatic cancer to brain, Altered mental status Disposition: ADMITTED IP TO THIS HOSP Condition: Fair Is patient prescribed a controlled substance at d/c from ED?: No Referrals: None,Stated [Primary Care Provider] - 1-2 days
[2018-06-03 17:49] LABS: Basophils # (A) 0.1 k/uL (0-0.2); Basophils % (A) 1 %; Eosinophils # (A) 0.1 k/uL (0-0.7); Eosinophils % (A) 1 %; HCT 46.6 % (39.0-53.0); HGB 15.6 gm/dL (13.0-17.5); Lymphocytes # (A) 1.3 k/uL (1.0-4.8); Lymphocytes % (A) 11 %; MCHC 33.4 g/dL (31.0-37.0); MCV 86.8 fL (80.0-100.0); Mean Platelet Volume 7.5; Monocytes # (A) 0.6 k/uL (0-1.0); Monocytes % (A) 5 %; Neutrophils # (A) 9.6 k/uL (1.3-7.7); Neutrophils % (A) 81 %; Platelet Count 275 k/uL (150-450); RBC 5.37 m/uL (4.30-5.90); RDW 13.4 % (11.5-15.5); WBC 11.8 k/uL (3.8-10.6)
[2018-06-03 17:58] LABS: ALT 43 U/L (21-72); AST 29 U/L (17-59); Albumin 3.5 g/dL (3.5-5.0); Alcohol <10 mg/dL; Alkaline Phosphatase 93 U/L (38-126); Anion Gap 6 mmol/L; Blood Urea Nitrogen 13 mg/dL (9-20); Calcium 9.1 mg/dL (8.4-10.2); Carbon Dioxide 28 mmol/L (22-30); Chloride 101 mmol/L (98-107); Glucose 85 mg/dL (74-99); Magnesium 2.1 mg/dL (1.6-2.3); Phosphorus 4.1 mg/dL (2.5-4.5); Sodium 135 mmol/L (137-145); Total Bilirubin 1.1 mg/dL (0.2-1.3); Total Protein 6.7 g/dL (6.3-8.2)
[2018-06-03 18:00] LABS: INR 0.9 (<1.2); Partial Thromboplastin Time 23.8 sec (22.0-30.0); Prothrombin Time 9.6 sec (9.0-12.0)
[2018-06-03 18:01] LABS: Potassium 5.1 mmol/L (3.5-5.1)
--- NOTE | 2018-06-03 18:02 | CT ---
EXAMINATION TYPE: CT brain wo con DATE OF EXAM: 06/03/2018 COMPARISON: 05/03/2018 HISTORY: Altered mental status confusion CT DLP: 1162.4 mGycm Automated exposure control for dose reduction was used. FINDINGS: There is extensive white matter edema in the right posterior frontal lobe and right parietal lobe. Th ere is also similar when matter and vazquez matter edema in the left temporal lobe and left occipital lo be and left parietal lobe. There is effacement of the sulci. The midline is shifted slightly to the r ight side. Calvarium is intact. IMPRESSION: Bilateral extensive edema consistent with metastatic disease. There is slight increased mass effect c ompared to last exam and some midline shift to the right side. No hemorrhage.
--- NOTE | 2018-06-03 18:03 | XR ---
EXAMINATION TYPE: XR chest 2V DATE OF EXAM: 06/03/2018 COMPARISON: 05/03/2018 HISTORY: Altered mental status TECHNIQUE: Frontal and lateral views of the chest are obtained. FINDINGS: Heart and mediastinum are normal. There is coarse density in the right upper lobe medially . The other lung chaudhry are fairly clear. There is no heart failure. There is no pleural effusion. Th ere are chest leads. Bony thorax is intact. IMPRESSION: Mild pulmonary fibrosis. Coarse right upper lobe infiltrate unchanged.
[2018-06-03] MEDS ORDERED: DEXAMETHASONE SOD PHOSPHATE 10 MG/ML 1 ML VIAL IV STA (19:34)
[2018-06-03 20:25] LABS: Appearance,Urine Clear (Clear); Bilirubin,Urine Negative (Negative); Blood,Urine Negative (Negative); Color,Urine Yellow; Glucose,Urine (UA) Negative (Negative); Ketones,Urine Negative (Negative); Leukocyte Esterase,Urine Negative (Negative); Nitrite,Urine Negative (Negative); PH, Urine 5.5 (5.0-8.0); Protein,Urine Negative (Negative); Specific Gravity,Urine 1.011 (1.001-1.035); Urobilinogen,Urine <2.0 mg/dL (<2.0)
[2018-06-03] MEDS ORDERED: SODIUM CHLORIDE 0.9% 1,000 ML IV SCH (20:30)
[2018-06-03 20:45] LABS: Amphetamine Screen,Urine Not Detected (NotDetected); Barbiturate Screen,Urine Not Detected (NotDetected); Benzodiazepines Screen,Urine Not Detected (NotDetected); Cocaine Screen,Urine Not Detected (NotDetected); Methadone Screen, Urine Not Detected (NotDetected); Opiate Screen,Urine Not Detected (NotDetected); Oxycodone Screen, Urine Not Detected (NotDetected); Phencyclidine Screen,Urine Not Detected (NotDetected); Tricyclic Antidepressant,Urine Not Detected (NotDetected); Urn Cannabinoid Scrn Not Detected (NotDetected)
[2018-06-03] MEDS ORDERED: DEXAMETHASONE SOD PHOSPHATE 10 MG/ML 1 ML VIAL IV SCH (22:06)
[2018-06-03] MEDS ORDERED: HYDROcodone/APAP 5-325MG 1 EACH TAB PO PRN (22:07)
[2018-06-03] MEDS ORDERED: TEMAZEPAM 15 MG CAP PO PRN (22:07)
[2018-06-03 22:47] VITALS: BMI 21.3
--- NOTE | 2018-06-03 23:58 | HP ---
HISTORY AND PHYSICAL DATE OF SERVICE: 06/03/2018. CHIEF COMPLAINTS: Change in mental status. HISTORY OF PRESENT ILLNESS: This 57-year-old gentleman with a past medical history of recently diagnosed metastatic cancer possibly primary unknown, possibly lung, had vasogenic edema. MRI also showed the same lesion. The patient had acute change in mental status and the patient also had a metastatic lesion in the left shoulder causing shoulder pain also. The patient apparently recommended outpatient followup and the status of the followup is unknown at this time. Patient apparently had radiation followup also. Currently the patient was evaluated in the ER. The patient apparently drove himself to the ER and because of some fuzzy feeling and the patient admitted for further evaluation and treatment. There is no history of fever, rigors. No history of headache, loss of consciousness or seizures. Patient unable to give a coherent history. Most of the history taken from my discussion with staff and review of ER chart at this time. PAST MEDICAL HISTORY: History of recent metastatic carcinoma with probably primary lung cancer, history of smoking. MEDICATIONS: Home medications are none. ALLERGIES: None. FAMILY HISTORY: History of coronary disease in the family. SOCIAL HISTORY: Previous smoker. No history of current smoking, alcohol intake. REVIEW OF SYSTEMS: ENT mentioned earlier. No diminished vision. No diminished hearing. Cardiovascular: no angina or palpitations. RESPIRATORY: No cough, hemoptysis. GI no nausea or vomiting. : No dysuria. NERVOUS SYSTEM: As mentioned pneumonia earlier. Allergy/Immunology: No asthma or hayfever. Hematology/Oncology: As mentioned earlier. ENDOCRINE: No history of diabetes or hypothyroidism. Constitutional: As mentioned earlier. Dermatology: Negative. Rheumatology: Negative. Psychiatry: As mentioned earlier. PHYSICAL EXAM: Patient is alert, oriented x 2. Pulse 98. Blood pressure 125/71, respiration 17, temp 98.4. Pulse ox 97% on room air. HEENT is conjunctivae normal. Oral mucosa moist. Neck is no jugular venous distention. No lymph node enlargement. Cardiovascular systems: S1, S2. Respirations: Breath sounds diminished in the bases. No rhonchi. No crackles. ABDOMEN: Soft, nontender. No mass palpable . Legs no edema. No swelling. Lymphatics: No lymph nodes palpable in the neck, axillae or groin. SKIN: No ulcer, rash or bleeding. JOINTS: No active deforming arthropathy. Nervous system: Mild diffuse weakness. LABS: At this time shows WBC 11.8, hemoglobin 15.6. ASSESSMENT: 1. Change in mental status, metabolic toxic encephalopathy secondary to multiple brain METS with extensive edema with increased mass effect. 2. Increased WBC. 3. Hyponatremia. 4. History of nicotine dependence. 5. Possible lung cancer with metastasis. RECOMMENDATIONS AND DISCUSSION: In this 57-year-old gentleman who presented with multiple complex medical issues, we will monitor the patient closely, continue the current medications, management and symptomatic treatment. We will initiate IV Decadron and I would also recommend consult Dr. Fischer and Dr. Clark for possible ICU transfer in case it is necessary, but however, overall prognosis extremely guarded. Further recommendations to follow. Will also consult Radiation Oncology also and see orders for details. DVT prophylaxis. Further recommendations to follow. We will also consult social studies department chair and Case Management also to evaluate the home situation. Patient apparently had a very poor home support and with no close family members nearby. MMMANINDERL / KATEYN: [id number] /
[2018-06-04 01:37] LABS: Glucose,Whole Blood 115 mg/dL (75-99)
[2018-06-04] MEDS: DEXAMETHASONE SOD PHOSPHATE 10 MG/ML 1 ML VIAL IV SCH ×4 (03:14→21:27)
[2018-06-04] MEDS ORDERED: DEXAMETHASONE SOD PHOSPHATE 4 MG/ML 1 ML VIAL IV SCH (06:00)
[2018-06-04] MEDS: PANTOPRAZOLE 40 MG/10 ML VIAL IVP SCH (08:56)
[2018-06-04] MEDS: HEPARIN SODIUM,PORCINE 5,000 UNIT/ML 1 ML VIAL SQ SCH ×2 (08:57→21:27)
[2018-06-04] MEDS ORDERED: ENOXAPARIN 40 MG/0.4 ML SYRINGE SQ SCH (09:00)
[2018-06-04 10:20] LABS: Basophils % (A) 0 %; Eosinophils % (A) 0 %; HCT 47.8 % (39.0-53.0); HGB 15.7 gm/dL (13.0-17.5); Lymphocytes # (A) 0.6 k/uL (1.0-4.8); Lymphocytes % (A) 6 %; MCH 29.1 pg (25.0-35.0); MCHC 32.8 g/dL (31.0-37.0); MCV 88.6 fL (80.0-100.0); Mean Platelet Volume 7.7; Monocytes # (A) 0.2 k/uL (0-1.0); Monocytes % (A) 2 %; Neutrophils # (A) 9.3 k/uL (1.3-7.7); Neutrophils % (A) 92 %; Platelet Count 286 k/uL (150-450); RDW 13.2 % (11.5-15.5); WBC 10.1 k/uL (3.8-10.6)
[2018-06-04 10:46] LABS: Anion Gap 10 mmol/L; Blood Urea Nitrogen 15 mg/dL (9-20); Calcium 9.2 mg/dL (8.4-10.2); Carbon Dioxide 25 mmol/L (22-30); Chloride 102 mmol/L (98-107); Cholesterol 184 mg/dL (<200); Glucose 259 mg/dL (74-99); HDL Cholesterol 36 mg/dL (40-60); LDL Cholesterol,Calculated 137 mg/dL (0-99); Potassium 5.1 mmol/L (3.5-5.1); Sodium 137 mmol/L (137-145); Triglycerides 57 mg/dL (<150)
--- NOTE | 2018-06-04 11:45 | P.CONS ---
History of Present Illness - Reason for Consult Consult date: 06/04/18 confusion, brain metastases Requesting physician: Keo Owen - Chief Complaint confusion - History of Present Illness The patient is a 57 year old male with a history of newly diagnosed adenocarcinoma of the right upper lung (path pending) stage IVB (cT1c, cN1, M1c) with metastasis to the bone, brain and adrenals. He underwent radiosurgery for 2 metastatic lesions within the brain, one of which was quite large finishing 05/23/18. The patient now presents to the ER on 06/03 with increasing confusion. According to the ER notes, he was unable to answer questions or give appropriate history. CT of the brain from 06/03 showed increasing edema - including in the right frontal/parietal region and slight right midline-shift. There was felt to be a slight increase in mass effect from the last exam. He was admitted and started on Dexamethasone. This AM, the patient reports he is feeling good. He denies difficulty with headache, nausea/vomiting, weakness or numbness/tingling. He shows some signs of confusion such as not knowing the date and saying he has been stuck here for a week (it has been 1 day). He lives alone, and he is not sure if he was taking his Decadron taper as directed. He notes that his cousin is helping him, but that she hasn't been over for a while. His brother unfortunately lives out of state. He admits to being a little frustrated that he hasn't started any chemotherapy for his disease yet as well. He denies shoulder pain. Review of Systems Constitutional: Denies chills, Denies chronic headaches, Denies fever Eyes: denies blurred vision Ears, nose, mouth and throat: Denies headache Cardiovascular: Denies chest pain, Denies dyspnea on exertion Respiratory: Denies cough Gastrointestinal: Denies abdominal pain Musculoskeletal: Denies frequent falls, Denies gait dysfunction Integumentary: Denies rash Neurological: Reports change in mentation, Reports confusion, Denies ataxia, Denies balance difficulties, Denies convulsions, Denies double vision, Denies headaches, Denies loss of vision, Denies motor disturbance, Denies numbness, Denies paresthesias, Denies weakness Psychiatric: Reports confusion Past Medical History Past Medical History: Cancer History of Any Multi-Drug Resistant Organisms: None Reported Past Surgical History: Orthopedic Surgery Additional Past Surgical History / Comment(s): right elbow Past Anesthesia/Blood Transfusion Reactions: No Reported Reaction Past Psychological History: No Psychological Hx Reported Smoking Status: Former smoker Past Alcohol Use History: None Reported Past Drug Use History: None Reported - Past Family History Brother(s) Family Medical History: Coronary Artery Disease (CAD) Mother Family Medical History: Cancer Additional Family Medical History / Comment(s): lung Medications and Allergies Home Medications Medication Instructions Recorded Confirmed Type No Known Home Medications 06/03/18 06/03/18 History Allergies Allergy/AdvReac Type Severity Reaction Status Date / Time No Known Allergies Allergy Verified 06/03/18 17:36 Physical Exam Vitals: Vital Signs Temp Pulse Pulse Pulse Resp BP BP 06/04/18 05:23 97.3 F L 86 16 116/75 06/04/18 03:16 98.4 F 98 18 119/83 06/04/18 01:23 98.3 F 88 16 117/74 06/04/18 00:00 80 16 06/03/18 23:23 98.3 F 76 18 122/70 06/03/18 22:23 98.6 F 82 18 130/72 06/03/18 21:23 97.9 F 106 H 16 121/74 06/03/18 21:02 98.3 F 98 17 125/71 06/03/18 19:00 95 18 128/87 06/03/18 18:00 93 16 102/82 06/03/18 17:07 98.2 F 105 H 18 138/89 Pulse Ox 06/04/18 05:23 96 06/04/18 03:16 93 L 06/04/18 01:23 95 06/04/18 00:00 06/03/18 23:23 94 L 06/03/18 22:23 95 06/03/18 21:23 96 06/03/18 21:02 96 06/03/18 19:00 96 06/03/18 18:00 99 06/03/18 17:07 99 Intake and Output 06/03/18 06/04/18 06/04/18 22:59 06:59 14:59 Intake Total 300 400 Balance 300 400 Intake: Intake, IV Titration 300 400 Amount Sodium Chloride 0.9% 1, 400 000 ml @ 100 mls/hr IV . Q10H [facility] Rx#:[id number] Sodium Chloride 0.9% 1, 300 000 ml @ 100 mls/hr IV . Q10H [facility] Rx#:[id number] Other: Voiding Method Urinal # Voids 1 Weight 65.589 kg - Constitutional General appearance: average body habitus, no acute distress - EENT Eyes: EOMI, PERRLA ENT: hearing grossly normal - Neck Neck: no lymphadenopathy - Respiratory Respiratory: bilateral: CTA - Cardiovascular Rhythm: regular Heart sounds: normal: S1, S2 - Gastrointestinal General gastrointestinal: no tenderness - Integumentary Integumentary: no calor, normal - Neurologic Neurologic: CNII-XII intact - Musculoskeletal Musculoskeletal: strength equal bilaterally - Psychiatric Psychiatric: no A&O x's 3 (Patient is oriented to self and place, but could not come up with the correct date or year. He also appears a bit agitated.), no appropriate affect Results CBC & Chem 7: 06/04/18 09:12 06/04/18 09:12 Labs: Abnormal Lab Results - Last 24 Hours (Table) 06/03/18 06/03/18 06/04/18 Range/Units 17:29 17:29 01:25 WBC 11.8 H (3.8-10.6) k/uL Neutrophils # 9.6 H (1.3-7.7) k/uL Lymphocytes # (1.0-4.8) k/uL Sodium 135 L (137-145) mmol/L Glucose (74-99) mg/dL POC Glucose (mg/dL) 115 H (75-99) mg/dL LDL Cholesterol, Calc (0-99) mg/dL HDL Cholesterol (40-60) mg/dL 06/04/18 06/04/18 Range/Units 09:12 09:12 WBC (3.8-10.6) k/uL Neutrophils # 9.3 H (1.3-7.7) k/uL Lymphocytes # 0.6 L (1.0-4.8) k/uL Sodium (137-145) mmol/L Glucose 259 H (74-99) mg/dL POC Glucose (mg/dL) (75-99) mg/dL LDL Cholesterol, Calc 137 H (0-99) mg/dL HDL Cholesterol 36 L (40-60) mg/dL CT Scan - head: report reviewed, image reviewed Assessment and Plan Plan: The patient is a 57 year old male with a history of newly diagnosed likely adenocarcinoma of the right upper lung stage IVB (cT1c, cN1, M1c) with metastasis to the bone, brain and adrenals. He underwent radiosurgery for 2 metastatic lesions within the brain, one of which was quite large finishing 05/23/18. He now presents with increased confusion. 1. Brain metastases: The patient is 1.5 weeks out from completion of radiothe rapy. CT head showing some increased edema, which may be on a post-therapy basis. I am concerned that the patient stopped taking his decadron taper (he was not reliably answering this questions) which may have exacerbated his post- radiotherapy change. He has previously refused neurosurgical evaluation. I would like a repeat MRI performed (despite the early time-point) while in house. We will evaluate the patient while in-house. 2. Metastatic lung cancer: Patient will need outpatient follow-up with oncology RE systemic therapy. We have some concerns regarding the patient's ability to take care of himself as he currently lives alone. His brother is supportive but living in [place]. He notes a cousin that lives nearby has been helping him. Time with Patient: Greater than 30
--- NOTE | 2018-06-04 14:53 | MR ---
EXAMINATION TYPE: MR brain wo/w con DATE OF EXAM: 06/04/2018 COMPARISON: MRI brain May 05, 2018. CT brain June 03, 2018. HISTORY: AMS, increased edema on CT, abnormal CT TECHNIQUE: Multiplanar, multisequence images of the brain and brainstem is performed without and with IV contras t, utilizing 7 mL intravenous Gadavist . FINDINGS: Exam noted suboptimal due to patient's motion related to confusion. Diffusion weighted imag es demonstrate no evidence of a recent infarct or other diffusion abnormality. There is is ventricul ar and sulcal prominence redemonstrated. Midline structures demonstrate normal morphology. The craniocervical junction appears within normal limits. Globes are intact. Mild mucosal thickening inferior aspect bilateral maxillary sinuses is pr esent. There is redemonstration of rim-enhancing left parietal mass measuring 4.8 x 3.8 cm on axial image 16 x 4.7 cm craniocaudal dimension coronal image 28 versus 4.4 x 3.0 x 4.4 cm axial image 20 and agrawal l image 29 prior study the slightly larger with adjacent vasogenic edema extending to superior left t emporal lobe redemonstrated is confirmed slightly more prominent from prior study with new midline sh ift to the right measured up to 7 mm axial image 18. Homogeneous enhancing roughly 3.2 cm meningioma high posterior right frontal parietal region with vasogenic edema extending inferiorly is felt stable . There is better visualization of 2 adjacent subcentimeter superior lateral left temporal rim-enhanc ing lesions with surrounding vasogenic edema axial image 13 and coronal image 15 on current study wer e likely present on prior study in retrospect. Scattered foci of T2 hyperintensity throughout the white matter bilaterally remain present including cerebellar and brainstem involvement. IMPRESSION: Interval slight enlargement of 4.8 cm left parietal mass with worsening vasogenic edema a nd midline shift. Better visualization of subcentimeter lateral superior left temporal metastatic les ions noted. Stable high right frontal parietal meningioma with local mass effect.
--- NOTE | 2018-06-04 17:26 | P.CONS ---
History of Present Illness - Reason for Consult Consult date: 06/04/18 Metastatic non-small cell lung cancer Requesting physician: Bob Sabillon - Chief Complaint Altered mental status - History of Present Illness Mr. Alamo is a pleasant but very confused male who was referred to our office 04/24 by Orthopedics who saw pt for c/o progressive pain in the left shoulder/left upper back, became so severe he had to stop working and go on disability, he thought he has work up in [place] but those records were never made available. Pt had imaging that revealed a destructive lesion involving the left scapula. CT CAP and bone scan [facility], RUL 2.3cm mass, rt hilar adenopathy, bilateral adrenal gland masses, peritoneal deposit, the [place] bone scan was positive for bone mets. He was taken to the ER a few weeks ago by his brother for confusion, CT of the brain revealed multiple bran mets which he completed WBRT, I believe. He has missed 2 appt in the office plan and start systemic, palliative chemotherapy. He is again admitted for AMS, he states he did finish radiation, he does not recall missing any appts, he states he has rides, he states knows he need to get treatment going. Denied headache, nausea, appetite is good, no MICHAEL, cough, abd pain, acute changes in bowel or bladder habits, no pain. He states he feels better now then he has in a long time. Review of Systems A she did answer questions to the best of his ability, notable confusion regarding his situation ROS unobtainable: due to mental status Past Medical History Past Medical History: Cancer History of Any Multi-Drug Resistant Organisms: None Reported Past Surgical History: Orthopedic Surgery Additional Past Surgical History / Comment(s): right elbow Past Anesthesia/Blood Transfusion Reactions: No Reported Reaction Past Psychological History: No Psychological Hx Reported Smoking Status: Former smoker Past Alcohol Use History: None Reported Past Drug Use History: None Reported - Past Family History Brother(s) Family Medical History: Coronary Artery Disease (CAD) Mother Family Medical History: Cancer Additional Family Medical History / Comment(s): lung Medications and Allergies Home Medications Medication Instructions Recorded Confirmed Type No Known Home Medications 06/03/18 06/03/18 History Allergies Allergy/AdvReac Type Severity Reaction Status Date / Time No Known Allergies Allergy Verified 06/03/18 17:36 Physical Exam Vitals: Vital Signs Temp Pulse Pulse Pulse Resp BP BP 06/04/18 05:23 97.3 F L 86 16 116/75 06/04/18 03:16 98.4 F 98 18 119/83 06/04/18 01:23 98.3 F 88 16 117/74 06/04/18 00:00 80 16 06/03/18 23:23 98.3 F 76 18 122/70 06/03/18 22:23 98.6 F 82 18 130/72 06/03/18 21:23 97.9 F 106 H 16 121/74 06/03/18 21:02 98.3 F 98 17 125/71 06/03/18 19:00 95 18 128/87 06/03/18 18:00 93 16 102/82 06/03/18 17:07 98.2 F 105 H 18 138/89 Pulse Ox 06/04/18 05:23 96 06/04/18 03:16 93 L 06/04/18 01:23 95 06/04/18 00:00 06/03/18 23:23 94 L 06/03/18 22:23 95 06/03/18 21:23 96 06/03/18 21:02 96 06/03/18 19:00 96 06/03/18 18:00 99 06/03/18 17:07 99 Intake and Output 06/03/18 06/04/18 06/04/18 22:59 06:59 14:59 Intake Total 300 400 Balance 300 400 Intake: Intake, IV Titration 300 400 Amount Sodium Chloride 0.9% 1, 400 000 ml @ 100 mls/hr IV . Q10H [facility] Rx#:[id number] Sodium Chloride 0.9% 1, 300 000 ml @ 100 mls/hr IV . Q10H [facility] Rx#:[id number] Other: Voiding Method Urinal # Voids 1 Weight 65.589 kg - Constitutional General appearance: cooperative, no acute distress, thin - EENT Eyes: anicteric sclerae, EOMI, normal appearance ENT: hearing grossly normal, normal oropharynx - Neck Neck: no lymphadenopathy - Respiratory Respiratory: bilateral: CTA, diminished - Cardiovascular Rhythm: regular Heart sounds: normal: S1, S2 Abnormal Heart Sounds: no systolic murmur, no diastolic murmur, no rub, no S3 Gallop, no S4 Gallop, no click, no other leg Peripheral Edema: bilateral: None - Gastrointestinal General gastrointestinal: no absent bowel sounds, no decreased bowel sounds, no distended, no hepatomegaly, no hyperactive bowel sounds, normal bowel sounds, no organomegaly, no rigid, no scaphoid, soft, no splenomegaly, no tenderness, no umbilical hernia, no ventral hernia - Integumentary Integumentary: normal - Neurologic Neurologic: CNII-XII intact - Musculoskeletal Musculoskeletal: strength equal bilaterally - Psychiatric Psychiatric: A&O x's 3, appropriate affect, no intact judgment & insight Results CBC & Chem 7: 06/04/18 09:12 06/04/18 09:12 Labs: Abnormal Lab Results - Last 24 Hours (Table) 06/03/18 06/03/18 06/04/18 Range/Units 17:29 17:29 01:25 WBC 11.8 H (3.8-10.6) k/uL Neutrophils # 9.6 H (1.3-7.7) k/uL Lymphocytes # (1.0-4.8) k/uL Sodium 135 L (137-145) mmol/L POC Glucose (mg/dL) 115 H (75-99) mg/dL 06/04/18 Range/Units 09:12 WBC (3.8-10.6) k/uL Neutrophils # 9.3 H (1.3-7.7) k/uL Lymphocytes # 0.6 L (1.0-4.8) k/uL Sodium (137-145) mmol/L POC Glucose (mg/dL) (75-99) mg/dL Assessment and Plan (1) Non-small cell lung cancer with metastasis Narrative/Plan: Systemic palliative chemotherapy due to begin as soon as pt can make it to office to receive. Will try next of kin to see if there is any contact info for the neighbor/friend that pt states is going to help him. Have asked staff to look out for visitors and get contact info if they are willing to help Current Visit: Yes Status: Acute Priority: High Code(s): C34.90 - MALIGNANT NEOPLASM OF UNSP PART OF UNSP BRONCHUS OR LUNG SNOMED Code(s): 721098205 (2) Altered mental status Narrative/Plan: Pt states he has completed WBRT. Will consult Radiation Oncology as pt may be due for f/u imaging and they can clarify where pt is in his radiation treatment. Concern is that pt may need a guardian. He is not able to remember details, such as keeping appts and he cannot drive. Both of these things are are crit ical to his treatment plan. We will see who we are able to get a hold of to help him with his care 1st then f/u. Current Visit: Yes Status: Acute Priority: Medium Code(s): R41.82 - ALTERED MENTAL STATUS, UNSPECIFIED SNOMED Code(s): 849741028 Plan: Attests: I have performed H&P and developed impression and plan of care of patient, discussed with dictator. I agree with dictated note, documented as a scribe.
--- NOTE | 2018-06-04 19:09 | CONS ---
CONSULTATION PULMONARY/CRITICAL CARE CONSULTATION: REASON FOR CONSULTATION: Mental status changes. This is a 57-year-old male who presents with mental status changes. The patient apparently has a history of lung cancer and has brain metastases. The patient was found to have a midline shift on his CT scan of the brain. He has been seen by Radiation Oncology. I was asked to see him, for no particular reason other than he has a history of lung cancer and probably has a history of underlying COPD as well. The patient is not a particularly good historian and I really could not obtain much history from him. His speech was very confusing. He spoke in gibberish. He really did not make any sense. He talked about some family member in a different state who was supposed to be taking care of him but was not really taking care of him. The patient has been seen by the radiation doctor and the ER doctor and Dr. Gonzalez from the hospital service. The patient appears not to have any respiratory difficulty. Asking him about his breathing, he denies any shortness of breath, chest tightness, wheezing, cough or phlegm production, although I do not know how accurate that is. His chest x-ray shows some mild pulmonary fibrotic changes and some right upper lobe infiltrative changes. Brain CT is reviewed. The emergency room note is reviewed. MEDICAL HISTORY: His medical history includes metastatic carcinoma, primary lung. HOME MEDICATIONS: None. ALLERGIES: NONE. FAMILY HISTORY: Positive for coronary artery disease. SOCIAL HISTORY: Positive for previous tobacco use. No history of illicit drug use or alcohol use. CURRENT MEDICATIONS: Here his medications include: 1. Decadron. 2. Heparin. 3. [place]. 4. Protonix. 5. Restoril. Not much additional history is obtained. REVIEW OF SYSTEMS: Likely very unreliable, but: CONSTITUTIONAL: Negative. NEUROLOGIC: Mental status changes. HEENT: Negative. CARDIOVASCULAR: Negative. PULMONARY: Negative. GI: Negative. : Negative. RHEUMATOLOGIC: Negative. IMMUNOLOGIC: Negative. ENDOCRINOLOGIC: Negative. DERMATOLOGIC: Negative. PHYSICAL EXAMINATION: Current vital signs are reviewed. Temperature is 97.5, heart rate 86, respiratory rate 16, blood pressure 122/81, mean 94. Room-air saturation 93%. Appears in no acute distress. HEENT examination is grossly unremarkable. Mucous membranes are moist. He is not requiring any supplemental oxygen. NECK: Supple. Full range of motion. No adenopathy, thyromegaly or neck vein distention. Cardiovascular examination reveals regular rhythm and rate. S1, S2 normal. No S3, S4, murmur. LUNGS: Mostly clear breath sounds. A few scattered mild rhonchi. No wheezes or crackles. ABDOMEN: Soft. Bowel sounds are heard. Extremities are intact. No cyanosis, clubbing or edema. Skin without rash. Neurologic examination reveals certainly a weird affect and weird speech with mental status changes. Neurologically he otherwise appears to be reasonably intact. LABS: Reviewed. White count 10.1, hemoglobin 15.7, hematocrit 47.8, platelet count 286,000. Sodium, potassium, chloride, CO2 all normal. Anion gap normal. BUN and creatinine were normal. Cholesterol was 184. Urine is negative. Drug screen was negative. Influenza studies were negative. Chest x-ray and brain scan are reviewed. Medications are reviewed. The patient is currently on the above medications that I mentioned. ASSESSMENT: 1. Lung cancer, metastatic to the brain, with mental status changes, currently on Decadron. 2. History of previous heavy tobacco use. 3. History of metastatic lung cancer. PLAN: The patient seems to be doing relatively well from the pulmonary standpoint. Will follow along as needed. He denies any shortness of breath, chest tightness, wheezing, cough or phlegm production. No fever or chills. The patient is receiving Decadron for the swelling from the metastatic deposits. Radiation Therapy has seen the patient. He may be getting additional radiation treatments to the brain. We will continue to follow. Prognosis is poor. MMODL / IJN: [id number] /
--- NOTE | 2018-06-04 20:57 | PN ---
PROGRESS NOTE DATE OF SERVICE: 06/04/2018 This 57-year-old gentleman who was admitted with change in mental status, metabolic toxic encephalopathy secondary to multiple brain METS had extensive brain edema. The patient is on IV steroids. The patient apparently finished a course of radiation therapy. Dr. Baker radiation oncologist recommended repeat MRI scan which showed slight enlargement of the 4.8 cm left parietal mass with worsening vasogenic edema as well as midline shift. PAST MEDICAL HISTORY: Reviewed. REVIEW OF SYSTEMS: CARDIOVASCULAR: No angina or palpitations. RESPIRATORY: As mentioned earlier. GI: As mentioned hematology: : No dysuria. Central nervous system: As mentioned earlier. CURRENT MEDICATIONS ARE: 1. [place] 5 mg. 2. Decadron 80 mg IV q.6 hours. 3. Heparin 5000 subcu b.i.d. 4. Protonix 40 mg. 5. Restoril. PHYSICAL EXAM: Patient is alert, oriented x2. Pulse 99, blood pressure 128/66, respirations 16, temperature 97.4, pulse ox 93 percent on room air, mildly confused. HEENT: Conjunctivae normal. NECK: No jugular venous distention. No carotid bruit. No lymph node enlargement. CARDIOVASCULAR: S1, S2 muffled. RESPIRATORY: Breath sounds diminished in the bases. Bilateral scattered rhonchi and crackles, few. ABDOMEN: Soft, nontender. No mass palpable. Legs no edema. No swelling. NERVOUS SYSTEM: Higher functions as mentioned earlier. Moves all 4 limbs. Mild diffuse weakness. No focal deficits. No sensory cerebellar dysfunction. SKIN: No ulcer, rash or bleeding. Joints: No active deforming arthropathy. LABS: CBC within normal limits. Sodium 137, potassium 5.1 and glucose 259, LDL is 137. ASSESSMENT: 1. Change in mental status with acute metabolic toxic encephalopathy secondary to multiple brain METS with extensive brain edema as well as increased mass effect. 2. Status post radiation. 3. Right upper lobe lung cancer with metastasis to the brain. 4. Hyponatremia. 5. History of nicotine dependence. 6. Increased WBC. 7. Hyperlipidemia. 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 RECOMMENDATIONS AND DISCUSSION: In this 57-year-old gentleman who presented with multiple complex medical issues, we will monitor the patient closely, continue the current medications. Continue symptomatic treatment. The patient has finished a course of radiation therapy, but however the patient apparently refused neuro psych intervention in the past. Currently patient presented with features of cerebral edema. The possibility of cerebellar edema secondary to post therapy process was considered by the radiation oncologist at this time. Dr. Andres as well as Hematology/Oncology following the patient closely. The patient might be a candidate for systemic chemotherapy currently. Otherwise, we will monitor the patient closely. Continue the IV dexamethasone. Monitor blood sugars closely. I would recommend DVT prophylaxis. Overall prognosis extremely guarded because of multiple complex medical issues and further recommendations to follow. MMODL / IJN: [id number] /
[2018-06-04] MEDS: INSULIN ASPART (NovoLOG) 100 UNIT/ML VIAL SQ SCH (21:28)
[2018-06-04 23:10] LABS: Glucose,Whole Blood 193 mg/dL (75-99)
[2018-06-05] MEDS: DEXAMETHASONE SOD PHOSPHATE 10 MG/ML 1 ML VIAL IV SCH ×2 (03:13→08:03)
[2018-06-05 07:24] LABS: Glucose,Whole Blood 126 mg/dL (75-99)
[2018-06-05] MEDS: INSULIN ASPART (NovoLOG) 100 UNIT/ML VIAL SQ SCH ×4 (08:00→20:59)
[2018-06-05] MEDS: HEPARIN SODIUM,PORCINE 5,000 UNIT/ML 1 ML VIAL SQ SCH ×2 (08:07→20:58)
[2018-06-05] MEDS: PANTOPRAZOLE 40 MG/10 ML VIAL IVP SCH (08:08)
[2018-06-05 09:50] LABS: Basophils % (A) 0 %; Eosinophils # (A) 0.1 k/uL (0-0.7); Eosinophils % (A) 0 %; HCT 41.5 % (39.0-53.0); HGB 14.4 gm/dL (13.0-17.5); Lymphocytes # (A) 0.9 k/uL (1.0-4.8); Lymphocytes % (A) 5 %; MCH 29.7 pg (25.0-35.0); MCHC 34.7 g/dL (31.0-37.0); MCV 85.6 fL (80.0-100.0); Monocytes # (A) 0.5 k/uL (0-1.0); Monocytes % (A) 3 %; Neutrophils # (A) 17.6 k/uL (1.3-7.7); Neutrophils % (A) 92 %; Platelet Count 328 k/uL (150-450); RBC 4.85 m/uL (4.30-5.90); WBC 19.1 k/uL (3.8-10.6)
[2018-06-05 10:07] LABS: Anion Gap 7 mmol/L; Blood Urea Nitrogen 20 mg/dL (9-20); Calcium 9.4 mg/dL (8.4-10.2); Carbon Dioxide 26 mmol/L (22-30); Chloride 104 mmol/L (98-107); Glucose 135 mg/dL (74-99); Sodium 137 mmol/L (137-145)
[2018-06-05 11:18] LABS: Glucose,Whole Blood 135 mg/dL (75-99)
--- NOTE | 2018-06-05 14:50 | P.PN ---
Subjective Progress Note Date: 06/05/18 Principal diagnosis: Altered mental status, metastatic lung cancer, brain metastases On 06/05/2018 patient was seen again in follow-up on medical surgical floor. On today's exam he is awake and alert, less confused. She had a MRI of the brain done yesterday, showed interval slight enlargement of 4.8 cm left parietal mass with worsening vasogenic edema and line shift, and stable high right frontal parietal meningioma with local mass effect. he was started on IV Decadron. He is awake and alert, no seizure activity noted, he recently finished a course of radiation for his brain metastasis, oncology is following. Vital signs are stable, currently he has no acute complaints, he is on room air, from pulmonary perspective he denies any difficulty breathing, room air pulse ox is 96%, afebrile, hemodynamically stable. Lung sounds clear. Objective - Vital Signs Vital signs: Vital Signs Temp 96.9 F L 06/05/18 12:38 Pulse 82 06/05/18 12:38 Resp 16 06/05/18 12:38 BP 121/78 06/05/18 12:38 Pulse Ox 96 06/05/18 12:38 Intake & Output 06/04/18 06/05/18 06/05/18 18:59 06:59 18:59 Intake Total 590 Balance 590 Intake: Oral 590 Other: Voiding Method Urinal Toilet Urinal # Voids 2 2 2 - Exam GENERAL EXAM: Alert, pleasant, 57-year-old white male up on the edge of the bed, comfortable in no apparent distress. HEAD: Normocephalic/atraumatic. EYES: Normal reaction of pupils, equal size. Conjunctiva pink, sclera white. NOSE: Clear with pink turbinates. THROAT: No erythema or exudates. NECK: No masses, no JVD, no thyroid enlargement, no adenopathy. CHEST: No chest wall deformity. Symmetrical expansion. LUNGS: Equal air entry with no crackles, wheeze, rhonchi or dullness. CVS: Regular rate and rhythm, normal S1 and S2, no gallops, no murmurs, no rubs ABDOMEN: Soft, nontender. No hepatosplenomegaly, normal bowel sounds, no guarding or rigidity. EXTREMITIES: No clubbing, no edema, no cyanosis, 2+ pulses and upper and lower extremities. MUSCULOSKELETAL: Muscle strength and tone normal. SPINE: No scoliosis or deformity SKIN: No rashes CENTRAL NERVOUS SYSTEM: Alert and oriented -3. No focal deficits, tone is normal in all 4 extremities. PSYCHIATRIC: Alert and oriented -3. Appropriate affect. Intact judgment and insight. - Labs CBC & Chem 7: 06/05/18 09:17 06/05/18 09:17 Labs: Abnormal Lab Results - Last 24 Hours (Table) 06/04/18 06/05/18 06/05/18 Range/Units 21:16 07:23 09:17 WBC 19.1 H (3.8-10.6) k/uL Neutrophils # 17.6 H (1.3-7.7) k/uL Lymphocytes # 0.9 L (1.0-4.8) k/uL Glucose (74-99) mg/dL POC Glucose (mg/dL) 193 H 126 H (75-99) mg/dL 06/05/18 06/05/18 Range/Units 09:17 11:17 WBC (3.8-10.6) k/uL Neutrophils # (1.3-7.7) k/uL Lymphocytes # (1.0-4.8) k/uL Glucose 135 H (74-99) mg/dL POC Glucose (mg/dL) 135 H (75-99) mg/dL Assessment and Plan Plan: Assessment: #1. Metastatic non-small cell lung cancer with brain metastasis #2. Altered mental status changes present on admission, related to numerous metastatic brain lesions with vasogenic edema and midline shift, ration has recently completed course of radiotherapy for the brain metastasis #3. Former smoker Plan: From a pulmonary perspective patient denies any difficulty breathing, maintaining good O2 saturations on room air, sounds are clear to auscultation, has been started on Decadron for the metastatic lesions in the brain with vasogenic edema and midline shift. Oncology and radiation oncology are follow ing. Vital signs are stable. See the patient on as-needed basis I performed a history & physical examination of the patient and discussed their management with my nurse practitioner, Michelle Rizzo. I reviewed the nurse practitioner's note and agree with the documented findings and plan of care. Lung sounds are positive for clear breath sounds. The findings and the impression was discussed with the patient. I attest to the documentation by the nurse practitioner. Time with Patient: Less than 30
--- NOTE | 2018-06-05 14:51 | P.PN ---
Subjective Progress Note Date: 06/05/18 Principal diagnosis: metastatic non-small cell lung cancer, status post WBRT In follow-up today patient looks well, sitting up at the bedside, he feels he is thinking more clearly, states feeling better with changing his medication, does not know which one. Denies headache, vision changes, unilateral weakness, numbness or tingling, nausea, vomiting or pain Objective - Vital Signs Vital signs: Vital Signs Temp 96.9 F L 06/05/18 12:38 Pulse 82 06/05/18 12:38 Resp 16 06/05/18 12:38 BP 121/78 06/05/18 12:38 Pulse Ox 96 06/05/18 12:38 Intake & Output 06/04/18 06/05/18 06/05/18 18:59 06:59 18:59 Intake Total 590 Balance 590 Intake: Oral 590 Other: Voiding Method Urinal Toilet Urinal # Voids 2 2 2 - Constitutional General appearance: Present: average body habitus, cooperative, no acute distress - EENT Eyes: Present: anicteric sclerae ENT: Present: hearing grossly normal - Respiratory Details: respirations even and unlabored Respiratory: bilateral: CTA - Cardiovascular Rhythm: regular Heart sounds: normal: S1, S2 Abnormal Heart Sounds: Absent: systolic murmur, diastolic murmur, rub, S3 Gallop, S4 Gallop, click, other - Peripheral edema leg Peripheral Edema: bilateral: None - Gastrointestinal General gastrointestinal: Present: normal bowel sounds, soft - Musculoskeletal Musculoskeletal: Present: strength equal bilaterally - Psychiatric Psychiatric Comment(s): Patient repeat the same statements-his address and his neighbors address-he cannot remember sister or cousins phone numbers, it did take him some time to remember his sister's name and he was eventually able to do this. Patient is pleasant, did get frustrated when he could not remember things - Allied health notes Allied health notes reviewed: case management - Labs CBC & Chem 7: 06/05/18 09:17 06/05/18 09:17 Labs: Abnormal Lab Results - Last 24 Hours (Table) 06/04/18 06/05/18 06/05/18 Range/Units 21:16 07:23 09:17 WBC 19.1 H (3.8-10.6) k/uL Neutrophils # 17.6 H (1.3-7.7) k/uL Lymphocytes # 0.9 L (1.0-4.8) k/uL Glucose (74-99) mg/dL POC Glucose (mg/dL) 193 H 126 H (75-99) mg/dL 06/05/18 06/05/18 Range/Units 09:17 11:17 WBC (3.8-10.6) k/uL Neutrophils # (1.3-7.7) k/uL Lymphocytes # (1.0-4.8) k/uL Glucose 135 H (74-99) mg/dL POC Glucose (mg/dL) 135 H (75-99) mg/dL Assessment and Plan (1) Non-small cell lung cancer with metastasis Current Visit: Yes Status: Acute Priority: High Code(s): C34.90 - MALIGNANT NEOPLASM OF UNSP PART OF UNSP BRONCHUS OR LUNG SNOMED Code(s): 279557179 (2) Altered mental status Current Visit: Yes Status: Acute Priority: Medium Code(s): R41.82 - ALTERED MENTAL STATUS, UNSPECIFIED SNOMED Code(s): 107485155 Plan: Reviewed Radiation Oncology consult, MRI treatment follow-up was ordered by Dr. Baker Patient had to be reminded that he had cancer. He was able to remember that he needs chemotherapy, and that he had completed radiation to the brain. He did seem to have an understanding that his treatment will not cure his disease, just control it for some time. Have reviewed Case Management notes. credit control manager has been in contact with pt brother. Hopefully we will have some answers soon as to how to proceed with this patient's care. I asked patient directly if he felt that he could go home by himself and take care of himself, he said he could. I asked him what medications he had at home, he could not tell me what meds he has. I asked him about remembering to take his pills and he admitted that he may not be able to do that. I reviewed with patient that for his safety he is going to need help. He keeps mentioning a cousin but, I told him we do not have that patient's contact information and he cannot remember it. We will follow-up daily
--- NOTE | 2018-06-05 15:22 | CT ---
EXAMINATION TYPE: CT brain wo con DATE OF EXAM: 06/05/2018 COMPARISON: 06/03/2018 HISTORY: 57-year-old male Confusion, chemo for brain cancer-per patient TECHNIQUE: Examination was done in axial plane without intravenous contrast. Coronal and sagittal r econstructions performed. CT DLP: 1069.30 mGycm Automated exposure control for dose reduction was used. FINDINGS: Multifocal vasogenic edema is redemonstrated. The known lesion along the right superior aspect of the posterior right frontal lobe is redemonstrate d relatively stable in size at 3.2 cm by now shows increasing hypodensity. The mostly necrotic/cystic mass posterior left parietal lobe is stable at 4.7 cm. There is 7 mm of rightward midline shift versus 9 mm, previously. No effacement of basal subarachnoid cisterns are obvious herniation is seen. No definite acute intracranial hemorrhage is identified. No extra-axial fluid collection identified. Paranasal sinuses and mastoid air cells well pneumatized. Orbits and globes are intact. IMPRESSION: 1. Multifocal vasogenic edema redemonstrated. Overall rightward midline shift shows slight improvemen t now measuring 7 mm versus 9 mm, previously. 2. The known lesion along the superior aspect of the posterior right frontal lobe is relatively stabl e in size at 3.2 cm but now shows increasing hypodensity probably developing necrosis from posttreatm ent effect. 3. The mostly necrotic posterior left parietal lobe mass is relatively similar at 4.7 cm. 4. No evident herniation or acute intracranial hemorrhage identified.
[2018-06-05] MEDS: DEXAMETHASONE SOD PHOSPHATE 4 MG/ML 1 ML VIAL IV SCH ×2 (17:17→20:58)
[2018-06-05 17:18] LABS: Glucose,Whole Blood 118 mg/dL (75-99)
[2018-06-05 20:07] LABS: Glucose,Whole Blood 128 mg/dL (75-99)
--- NOTE | 2018-06-05 23:01 | PN ---
PROGRESS NOTE DATE OF SERVICE: 06/05/2018 This 57-year-old gentleman who was admitted with change in mental status and metabolic encephalopathy, also had multiple brain METS. The patient is on IV steroids. No chest pain. No palpitations. No fever. A repeat CT scan of the brain was done today which showed midline shift was slightly improving at this time. Otherwise, multiple masses are noted. PAST MEDICAL HISTORY: Reviewed. REVIEW OF SYSTEM: Noted. EXAM: Alert and oriented x2. Pulse 82, blood pressure 120/70, respirations 18, temperature 96.9, pulse ox 98% on room air. HEENT: Conjunctivae normal. NECK: No jugular venous distention. Cardiovascular: S1, S2. RESPIRATORY: Breath sounds diminished in the bases. A few scattered rhonchi. No crackles. Abdomen is soft. CENTRAL NERVOUS SYSTEM: No focal deficits. LAB STUDIES: WBC 19.8, hemoglobin 14.4. ASSESSMENT: 1. Change in mental status with acute metabolic toxic encephalopathy secondary to multiple brain METS with extensive brain edema as well as increased mass effect. 2. Status post radiation. 3. Right upper lobe lung cancer with metastasis to the brain. 4. Hyponatremia. 5. History of nicotine dependence. 6. Increased WBC. 7. Hyperlipidemia. 8. Steroid induced diabetes type 2. RECOMMENDATION AND DISCUSSION: Recommend to continue current medications, management and symptomatic treatment. Continue with monitoring. Otherwise, at this time, we will monitor the patient closely. Taper the steroids and closely monitor with multiple consultants. The patient was seen by Hematology/Oncology and as well as Pulmonary. Guarded prognosis. Further recommendations to follow. Patient has significant social issues which is compounded by the confusion also the brain METS. The family is apparently in [place]. Social Work/Case Management is also working on the same. Further recommendations to follow. MMODL / IJN: [id number] /
[2018-06-06] MEDS: DEXAMETHASONE SOD PHOSPHATE 4 MG/ML 1 ML VIAL IV SCH ×4 (05:06→22:47)
[2018-06-06 06:57] LABS: Glucose,Whole Blood 93 mg/dL (75-99)
[2018-06-06] MEDS: INSULIN ASPART (NovoLOG) 100 UNIT/ML VIAL SQ SCH ×4 (08:38→22:02)
[2018-06-06] MEDS: HEPARIN SODIUM,PORCINE 5,000 UNIT/ML 1 ML VIAL SQ SCH ×2 (08:38→22:47)
[2018-06-06] MEDS: PANTOPRAZOLE 40 MG/10 ML VIAL IVP SCH (08:38)
[2018-06-06 09:05] LABS: Basophils % (A) 0 %; Eosinophils # (A) 0.1 k/uL (0-0.7); Eosinophils % (A) 1 %; HCT 42.4 % (39.0-53.0); HGB 14.7 gm/dL (13.0-17.5); Lymphocytes # (A) 0.9 k/uL (1.0-4.8); Lymphocytes % (A) 6 %; MCH 29.8 pg (25.0-35.0); MCHC 34.6 g/dL (31.0-37.0); MCV 86.2 fL (80.0-100.0); Mean Platelet Volume 7.8; Monocytes # (A) 0.2 k/uL (0-1.0); Monocytes % (A) 2 %; Neutrophils # (A) 13.6 k/uL (1.3-7.7); Neutrophils % (A) 91 %; Platelet Count 336 k/uL (150-450); RBC 4.92 m/uL (4.30-5.90); RDW 13.9 % (11.5-15.5); WBC 14.9 k/uL (3.8-10.6)
[2018-06-06 09:22] LABS: Anion Gap 10 mmol/L; Blood Urea Nitrogen 22 mg/dL (9-20); Calcium 9.4 mg/dL (8.4-10.2); Carbon Dioxide 22 mmol/L (22-30); Chloride 103 mmol/L (98-107); Glucose 189 mg/dL (74-99); Potassium 4.1 mmol/L (3.5-5.1); Sodium 135 mmol/L (137-145)
[2018-06-06 11:13] LABS: Glucose,Whole Blood 91 mg/dL (75-99)
--- NOTE | 2018-06-06 16:53 | PN ---
PROGRESS NOTE DATE OF SERVICE: 06/06/2018 This 57-year-old gentleman who was admitted with change in mental status and metabolic encephalopathy also has a history of recent brain metastases. The patient had completed a course of radiation therapy. The patient is confused, and before considering any systemic chemo, the hematology/oncology team would like the patient to have legal guardianship at this time, which is being arranged by [facility] and Case Management. Otherwise, the patient also apparently has family in [place]. A CT scan of the brain showed some minimal improvement, but the patient continues to be mildly confused. Patient is being closely monitored. Patient is rather cooperative at this time. On exam, pulse is 72, blood pressure 131/84, respiration 16, temperature 97.4, pulse ox 97% on room air. HEENT: Conjunctivae normal. NECK: No jugular venous distention. CARDIOVASCULAR SYSTEM: S1, S2 muffled. RESPIRATORY SYSTEM: Breath sounds diminished at the bases. A few rhonchi. No crackles. ABDOMEN: Soft, non-tender. No mass palpable. LEGS: No edema. No swelling. NERVOUS SYSTEM: No focal deficit. LABS: WBC 14.9, hemoglobin 14.7, sodium 135, potassium 4.1. ASSESSMENT: 1. Change in mental status with acute on chronic toxic metabolic encephalopathy secondary to multiple brain metastases with extensive brain edema as well as increased mass effect. 2. Status post radiation. 3. Right upper lobe lung cancer with metastases to the brain. 4. Hyponatremia. 5. History of nicotine dependence. 6. Increased white count. 7. Hyperlipidemia. 8. Steroid-induced diabetes mellitus, type 2. RECOMMENDATIONS AND DISCUSSION: In this 57-year-old gentleman who presented with multiple complex medical issues, we will monitor the patient closely, continue the current medications, continue symptomatic treatment. Otherwise at this time I recommend continuing with the tapered dose of steroids. Closely follow with multiple consultants. Closely follow with Case Management and family welfare social work professor. Guarded prognosis. Further recommendations to follow. MMODL / IJN: [id number] /
[2018-06-06 17:13] LABS: Glucose,Whole Blood 91 mg/dL (75-99)
[2018-06-06 20:38] LABS: Glucose,Whole Blood 115 mg/dL (75-99)
[2018-06-06 22:48] VITALS: RESP 18
[2018-06-07] MEDS: DEXAMETHASONE SOD PHOSPHATE 4 MG/ML 1 ML VIAL IV SCH ×2 (04:24→07:28)
[2018-06-07 06:56] LABS: Glucose,Whole Blood 109 mg/dL (75-99)
[2018-06-07] MEDS: INSULIN ASPART (NovoLOG) 100 UNIT/ML VIAL SQ SCH ×2 (07:23→12:54)
[2018-06-07] MEDS: HEPARIN SODIUM,PORCINE 5,000 UNIT/ML 1 ML VIAL SQ SCH (07:28)
[2018-06-07] MEDS: PANTOPRAZOLE 40 MG/10 ML VIAL IVP SCH (07:28)
[2018-06-07 09:17] LABS: Basophils % (A) 0 %; Eosinophils # (A) 0.1 k/uL (0-0.7); Eosinophils % (A) 1 %; HCT 45.3 % (39.0-53.0); HGB 15.7 gm/dL (13.0-17.5); Lymphocytes # (A) 0.9 k/uL (1.0-4.8); Lymphocytes % (A) 6 %; MCH 29.9 pg (25.0-35.0); MCHC 34.6 g/dL (31.0-37.0); MCV 86.3 fL (80.0-100.0); Mean Platelet Volume 8.1; Monocytes # (A) 0.4 k/uL (0-1.0); Monocytes % (A) 3 %; Neutrophils # (A) 13.5 k/uL (1.3-7.7); Neutrophils % (A) 90 %; Platelet Count 300 k/uL (150-450); RBC 5.25 m/uL (4.30-5.90); RDW 13.9 % (11.5-15.5); WBC 14.9 k/uL (3.8-10.6)
[2018-06-07 09:31] LABS: Anion Gap 9 mmol/L; Blood Urea Nitrogen 22 mg/dL (9-20); Calcium 9.6 mg/dL (8.4-10.2); Carbon Dioxide 25 mmol/L (22-30); Chloride 103 mmol/L (98-107); Glucose 147 mg/dL (74-99); Potassium 4.4 mmol/L (3.5-5.1); Sodium 137 mmol/L (137-145)
[2018-06-07 10:55] LABS: Glucose,Whole Blood 109 mg/dL (75-99)
--- NOTE | 2018-06-07 11:44 | P.PN ---
Subjective Progress Note Date: 06/07/18 Principal diagnosis: metastatic non-small cell lung cancer, status post WBRT In follow-up today patient remains pleasantly confused, less confusion then on admission. Patient verbalizes that her has cancer, he verbalized that he he understands chemotherapy is treatment for cancer and he wants to proceed. He verbalized that he may have some difficulty remembering to take his pills so, cousin has been contacted and spoke to Case Management, confirms that she will assist in his care. This contact information was provided to the office so that the cousin can be contacted with appointment dates and times for chemo and follow up. Patient is currently denying headache, dizziness, chest pain, shortness of breath, cough, nausea, abdominal pain, diarrhea or constipation, pain or swelling. Objective - Vital Signs Vital signs: Vital Signs Temp 98.1 F 06/07/18 05:00 Pulse 75 06/07/18 05:00 Resp 18 06/07/18 05:00 BP 119/73 06/07/18 05:00 Pulse Ox 95 06/07/18 05:00 Intake & Output 06/06/18 06/07/18 06/07/18 18:59 06:59 18:59 Intake Total 830 Balance 830 Intake: Oral 830 Other: Voiding Method Toilet Toilet Toilet Urinal Urinal # Voids 4 2 2 - Exam Well-developed, well-nourished, independently ambulatory, male, sitting up in bed, no acute distress, he is alert and oriented to self and place, time and situation he can get confused, respirations are even and unlabored, no swelling in the lower extremities, no visible abdominal distention - Labs CBC & Chem 7: 06/07/18 09:01 06/07/18 09:01 Labs: Abnormal Lab Results - Last 24 Hours (Table) 06/06/18 06/07/18 06/07/18 Range/Units 20:37 06:55 09:01 WBC 14.9 H (3.8-10.6) k/uL Neutrophils # 13.5 H (1.3-7.7) k/uL Lymphocytes # 0.9 L (1.0-4.8) k/uL BUN (9-20) mg/dL Glucose (74-99) mg/dL POC Glucose (mg/dL) 115 H 109 H (75-99) mg/dL 06/07/18 06/07/18 Range/Units 09:01 10:51 WBC (3.8-10.6) k/uL Neutrophils # (1.3-7.7) k/uL Lymphocytes # (1.0-4.8) k/uL BUN 22 H (9-20) mg/dL Glucose 147 H (74-99) mg/dL POC Glucose (mg/dL) 109 H (75-99) mg/dL Assessment and Plan (1) Non-small cell lung cancer with metastasis Narrative/Plan: Systemic palliative chemotherapy due to begin as soon as pt can make it to office to receive. Have confirmed that a cousin to will assist patient with transportation to and from appointments. Current Visit: Yes Status: Acute Priority: High Code(s): C34.90 - MALIGNANT NEOPLASM OF UNSP PART OF UNSP BRONCHUS OR LUNG SNOMED Code(s): 900542670 (2) Altered mental status Narrative/Plan: Pt has completed WBRT. Tapering dose of steroids prescribed, prescription in the chart. Current Visit: Yes Status: Acute Priority: Medium Code(s): R41.82 - ALTERED MENTAL STATUS, UNSPECIFIED SNOMED Code(s): 897017133
[2018-06-07 11:56] VITALS: BP 118/71; PULSE 80; TEMP 97.7
[2018-06-08] MEDS ORDERED: PANTOPRAZOLE 40 MG TABLET PO SCH (07:30)
--- NOTE | 2018-06-08 08:10 | DS ---
DISCHARGE SUMMARY DATE OF SERVICE: 06/07/2018 FINAL DIAGNOSES: 1. Change in mental status, acute on chronic toxic metabolic encephalopathy secondary to multiple brain METS with extensive brain edema as well as increased mass effect and midline shift. 2. Status post radiation. 3. Right upper lobe lung cancer with metastasis to the brain. 4. Hyponatremia. 5. History of nicotine dependence. 6. Increased WBC. 7. History of hyperlipidemia. 8. History of steroid-induced diabetes mellitus type 2. DISCHARGE DISPOSITION: The patient will be discharged in a stable condition with guarded prognosis. HISTORY OF PRESENT ILLNESS: This is a 57-year-old gentleman with a past medical history of multiple medical problems, was admitted with change in mental status and toxic metabolic encephalopathy. CT scan showed multiple findings as confirmed by MRI. The patient was given IV steroids. Patient was seen by Dr. Enriquez for Radiation Oncology and as well as Hematology Oncology. Care was coordinated. Pulmonology also saw the patient. Patient improved significantly. On exam, vitals are stable. CARDIOVASCULAR SYSTEM: S1, S2. ABDOMEN: Soft. NERVOUS SYSTEM: No focal deficits. Patient is mildly confused. The family welfare social work professor and pillowcase turner worked with the patient so that the patient's cousin will take care of him, down the line guardianship also will likely be pursued. Otherwise, once the patient is stabilized, Hematology, Oncology planning outpatient chemotherapy, possibly radiation course has been finished. The prognosis guarded. Further recommendations to follow for discharge. Discharge diet is cardiac diet followup. Follow up with Dr. Jewell in 2 to 3 days. Follow up with Dr. Owen as advised. MEDICATIONS: Dexamethasone 4 mg as mentioned so that will be 4 mg 4 times a day for 5 days, then off 3 times a day for 5 days, then twice for 5 days, then 1 tablet for 5 days, then 1/2 tablet for 5 days and then stop. Once again, the patient will be discharged in a stable condition with guarded prognosis. MMODL / IJN: [id number] /
== END 2018-06-07 14:10 | disposition home health service (06) | DRG 54 ==
LOC: EC 16:58 → 3NMEDONC 20:23
PROVIDERS: ADMIT Hospitalist; ATTEND Hospitalist
DX: C79.31 Secondary malignant neoplasm of brain (principal); G93.6 Cerebral edema; G92 Toxic encephalopathy; C79.51 Secondary malignant neoplasm of bone; E87.1 Hypo-osmolality and hyponatremia; C34.11 Malignant neoplasm of upper lobe, right bronchus or lung; C79.72 Secondary malignant neoplasm of left adrenal gland; C79.71 Secondary malignant neoplasm of right adrenal gland; E09.9 Drug or chemical induced diabetes mellitus without complications; E78.5 Hyperlipidemia, unspecified; J44.9 Chronic obstructive pulmonary disease, unspecified; T38.0X5A Adverse effect of glucocorticoids and synthetic analogues, initial encounter; Z82.49 Family history of ischemic heart disease and other diseases of the circulatory system; Z87.891 Personal history of nicotine dependence; Z92.3 Personal history of irradiation; Z60.2 Problems related to living alone; Z80.1 Family history of malignant neoplasm of trachea, bronchus and lung
CPT/HCPCS: 36415; 70450; 70553; 71046; 80048; 80053; 80061; 80306; 80320; 81003; 82140; 83735; 84100; 84484; 85025; 85610; 85730; 87502; 93005; 96361; 96374; 99285

== ENCOUNTER → 2018-07-11 | Outpatient (CLI) | payer OTHER ==
--- NOTE | 2018-07-12 07:34 | MR ---
EXAMINATION TYPE: MR brain wo/w con DATE OF EXAM: 07/11/2018 COMPARISON: Prior MRI brain June 04, 2018 HISTORY: Metastatic cancer to brain progress study. TECHNIQUE: Multiplanar, multisequence images of the brain and brainstem is performed without and with IV contras t, utilizing 7 mL intravenous Gadavist . FINDINGS: Diffusion weighted images demonstrate no evidence of a recent infarct or other diffusion ab normality. There is no worrisome new extra-axial fluid collection. Ventricular and sulcal prominence is redemonstrated. Some multifocal areas of low attenuation in the deep and periventricular white ma tter redemonstrated. Midline structures demonstrate normal morphology. The craniocervical junction appears within normal limits. There is persistent rim enhancing left parietal mass slightly diminished in size from prior study now measuring 3.5 x 2.6 cm axial image 45 x 3.7 cm craniocaudal dimension sagittal image 26 and coronal image 79 surrounding T2 hyperintensity or vasogenic edema redemonstrated. Prior study measurements of 4.8 x 3.8 x 4.7 cm are noted. Slight midline shift identified improved from prior measuring 3 to 4 m m current study axial image 42. There are stable homogeneous enhancing extra-axial high right frontoparietal mass measuring 3.4 x 3.1 x 2.1 cm current study axial image 75 and coronal image 49 consistent with meningioma. Significant i nferior vasogenic edema is redemonstrated. There is residual 4 x 6 mm rim-enhancing lateral left temporal lesion axial image 36 and sagittal luisa sures 13 diminished in size from 2 small adjacent lesions seen on prior study. Some adjacent vasogeni c edema is improved. No new enhancing masses are present. Globes are intact and visualized sinuses are clear. Dural venous sinuses appear patent. IMPRESSION: Positive partial treatment response with interval improvement in size of metastatic lesio ns. Interval improvement in midline shift noted. No new masses are evident.
== END ==
LOC: RADMRIMAIN 16:13
PROVIDERS: ATTEND Radiology Radiation Oncology
DX: C79.31 Secondary malignant neoplasm of brain (principal); C79.70 Secondary malignant neoplasm of unspecified adrenal gland; C34.11 Malignant neoplasm of upper lobe, right bronchus or lung; Z92.3 Personal history of irradiation
CPT/HCPCS: 70553; A9585

== ENCOUNTER → 2018-07-26 | Outpatient (CLI) | payer OTHER ==
--- NOTE | 2018-07-26 16:45 | US ---
EXAMINATION TYPE: US venous doppler duplex LE BI DATE OF EXAM: 07/26/2018 4:23 PM COMPARISON: NONE CLINICAL HISTORY: R22.41, R22.42 SWELLING BOTH LEGS. Swelling. SIDE PERFORMED: Bilateral TECHNIQUE: The lower extremity deep venous system is examined utilizing real time linear array sonog magaly with graded compression, doppler sonography and color-flow sonography. VESSELS IMAGED: External Iliac Vein (EIV) Common Femoral Vein Deep Femoral Vein Greater Saphenous Vein * Femoral Vein Popliteal Vein Small Saphenous Vein * Proximal Calf Veins (* superficial vessels) DESCRIPTION: Grayscale, color doppler, spectral doppler imaging performed of the deep veins of the b ilateral lower extremities. There is normal flow, compressibility, vascular waveforms. IMPRESSION: RIGHT LOWER EXTREMITY: POSITIVE FOR OCCLUSIVE DVT FROM THE EXTERNAL ILIAC VEIN TO THE POPLITEAL VEIN. LEFT LOWER EXTREMITY: NEGATIVE FOR DVT.
== END ==
LOC: RADUSWWP 15:54
PROVIDERS: ATTEND Internal Medicine Hematology & Oncology
DX: I82.421 Acute embolism and thrombosis of right iliac vein (principal); R22.42 Localized swelling, mass and lump, left lower limb
CPT/HCPCS: 93970

== ENCOUNTER 2018-09-10 18:59 | Inpatient (IN) | payer OTHER ==
[2018-09-10] MEDS ORDERED: HEPARIN SODIUM,PORCINE 10,000 UNIT/ML 1 ML VIAL IV ONE (21:57)
[2018-09-10] MEDS ORDERED: HEPARIN SODIUM,PORCINE 5,000 UNIT/ML 1 ML VIAL IV PRN (21:57)
[2018-09-10] MEDS ORDERED: HEPARIN SOD,PORK IN 0.45% NACL 25,000 UNIT in 0.45% NACL 1 250ML.BAG IV SCH (22:00)
[2018-09-10 22:03] LABS: Anisocytosis Slight; Basophils % (A) 0 %; Eosinophils % (A) 0 %; HCT 26.2 % (39.0-53.0); HGB 8.6 gm/dL (13.0-17.5); Lymphocytes # (A) 0.7 k/uL (1.0-4.8); Lymphocytes % (A) 18 %; MCHC 32.8 g/dL (31.0-37.0); MCV 94.6 fL (80.0-100.0); Macrocytosis Slight; Mean Platelet Volume 10.8; Monocytes # (A) 0.2 k/uL (0-1.0); Monocytes % (A) 6 %; Neutrophils # (A) 2.8 k/uL (1.3-7.7); Neutrophils % (A) 73 %; Poikilocytosis Slight; RBC 2.76 m/uL (4.30-5.90); RDW 19.4 % (11.5-15.5); WBC 3.8 k/uL (3.8-10.6)
[2018-09-10 22:12] LABS: ALT 37 U/L (21-72); AST 28 U/L (17-59); African American GFR (CKD) >90 (>60 ml/min/1.73 sqM); Albumin 3.8 g/dL (3.5-5.0); Alkaline Phosphatase 66 U/L (38-126); Anion Gap 9 mmol/L; Blood Urea Nitrogen 32 mg/dL (9-20); Calcium 9.5 mg/dL (8.4-10.2); Carbon Dioxide 24 mmol/L (22-30); Chloride 103 mmol/L (98-107); Glucose 113 mg/dL (74-99); Potassium 4.3 mmol/L (3.5-5.1); Sodium 136 mmol/L (137-145); Total Bilirubin 0.4 mg/dL (0.2-1.3); Total Protein 6.6 g/dL (6.3-8.2)
[2018-09-10 22:18] LABS: Platelet Count 33 k/uL (150-450)
[2018-09-10 22:19] LABS: INR 0.9 (<1.2); Prothrombin Time 9.7 sec (9.0-12.0)
[2018-09-10 22:30] LABS: D-Dimer 4.53 mg/L FEU (<0.60)
[2018-09-11] MEDS ORDERED: ACETAMINOPHEN TAB 325 MG TAB PO PRN (01:06)
[2018-09-11] MEDS ORDERED: NALOXONE 0.4 MG/ML 1 ML VIAL IV PRN (01:06)
[2018-09-11] MEDS ORDERED: MORPHINE SULFATE 4 MG/ML SYRINGE IV PRN (01:06)
--- NOTE | 2018-09-11 01:06 | ED ---
General Adult HPI - General Source: patient, RN notes reviewed, old records reviewed Mode of arrival: ambulatory Limitations: no limitations <Pepito Simon - Last Filed: 09/11/18 01:04> <Shady Goel - Last Filed: 09/11/18 02:04> - General Chief complaint: Extremity Problem,Nontraumatic Stated complaint: abnormal labs Time Seen by Provider: 09/10/18 21:20 - History of Present Illness Initial comments: 58-year-old male patient with history of active lung cancer, on chemotherapy presents ED after being advised by his oncologist. Patient states that he was sent hospital to rule out a blood clot in his leg. However further history taking reveals the patient to have an outpatient CT of the chest which did display displayed a right segmental PE. Patient denies any chest pain or shortness of breath this time. Patient denies any lower extremity pain. Patient denies all other complaints. Systemic: Pt denies fatigue, fever/chills, rash. Pt denies weakness, night sweats, weight loss. Neuro: Pt denies headache, visual disturbances, syncope or pre-syncope. HEENT: Pt denies ocular discharge or irritation, otalgia, rhinorrhea, pharyngitis or notable lymphadenopathy. Cardiopulmonary: Pt denies chest pain, SOB, heart palpitations, dyspnea on exertion. Abdominal/GI: Pt denies abdominal pain, n/v/d. : Pt denies dysuria, burning w/ urination, frequency/urgency. Denies new onset urinary or bowel incontinence. MSK: Pt denies myalgia, loss of strength or function in extremities. Neuro: Pt denies new onset weakness, paresthesias. (Pepito Simon) - Related Data Previous Rx's Medication Instructions Recorded Dexamethasone 4 mg PO DIRECTED #53 tablet 06/07/18 Allergies Allergy/AdvReac Type Severity Reaction Status Date / Time No Known Allergies Allergy Verified 06/03/18 17:36 Review of Systems ROS Other: All systems not noted in ROS Statement are negative. <Pepito Simon - Last Filed: 09/11/18 01:04> ROS Other: All systems not noted in ROS Statement are negative. <Shady Goel - Last Filed: 09/11/18 02:04> ROS Statement: Those systems with pertinent positive or pertinent negative responses have been documented in the HPI. Past Medical History Past Medical History: Cancer History of Any Multi-Drug Resistant Organisms: None Reported Past Surgical History: Orthopedic Surgery Additional Past Surgical History / Comment(s): right elbow Past Anesthesia/Blood Transfusion Reactions: No Reported Reaction Past Psychological History: No Psychological Hx Reported Smoking Status: Former smoker Past Alcohol Use History: None Reported Past Drug Use History: None Reported - Past Family History Brother(s) Family Medical History: Coronary Artery Disease (CAD) Mother Family Medical History: Cancer Additional Family Medical History / Comment(s): lung <Pepito Simon - Last Filed: 09/11/18 01:04> General Exam Limitations: no limitations <Pepito Simon - Last Filed: 09/11/18 01:04> - General Exam Comments Initial Comments: Constitutional: NAD, AOX3, Pt has pleasant affect. HEENT: NC/AT, trachea midline, neck supple, no lymphadenopathy. Posterior pharynx non erythematous, without exudates. External ears appear normal, without discharge. Mucous membranes moist. Eyes PERRLA, EOM intact. There is no scleral icterus. No pallor noted. Cardiopulmonary: RRR, no murmurs, rubs or gallops, no JVD noted. Lungs CTAB in anterior and posterior chaudhry. No peripheral edema. Abdominal exam: Abdomen soft and non-distended. Abdomen non-tender to palpation in all 4 quadrants. Bowel sounds active in LLQ. No hepatosplenomegaly. No ecchymosis Neuro: CN II-XII grossly intact. No nuchal rigidity. No raccon eyes, no manzanares sign, no hemotympanum. No cervical spinal tenderness. MSK: No posterior calf tenderness bilaterally, homans sign negative bilaterally. Posterior tibialis and radial pulse +2 bilaterally. Sensation intact in upper and lower extremities. Full active ROM in upper and lower extremities, 5/5 stregnth. (Pepito Simon) Course <KelliesanamShady - Last Filed: 09/11/18 02:04> Vital Signs 09/10/18 09/10/18 09/10/18 20:17 21:56 22:30 Temperature 98.3 F Pulse Rate 119 H 98 87 Respiratory 18 18 18 Rate Blood Pressure 126/79 114/72 121/81 O2 Sat by Pulse 99 96 96 Oximetry 09/10/18 09/11/18 23:30 01:17 Temperature 97.9 F 97.5 F L Pulse Rate 90 98 Respiratory 18 17 Rate Blood Pressure 116/81 101/71 O2 Sat by Pulse 97 98 Oximetry - Reevaluation(s) Reevaluation #1: 09/11/18 02:03 I was asked to enter replacement ordered for this patient, no other patient interaction (Shady Goel) Medical Decision Making - Lab Data Result diagrams: 09/10/18 21:45 09/10/18 21:45 <Pepito Simon - Last Filed: 09/11/18 01:04> - Lab Data Result diagrams: 09/10/18 21:45 09/10/18 21:45 <Shady Geol - Last Filed: 09/11/18 02:04> - Medical Decision Making 58-year-old male patient with history of active lung cancer, on chemotherapy presents ED after being advised by his oncologist. Patient states that he was sent hospital to rule out a blood clot in his leg. However further history taking reveals the patient to have an outpatient CT of the chest which did display displayed a right segmental PE. Patient denies any chest pain or shortness of breath this time. Patient denies any lower extremity pain. Patien t denies all other complaints. Physical exam did not display acute pathology. Patient's vital signs initially displayed tachycardia, normalized at time of admission. EKG displayed sinus tachycardia. Laboratory investigations revealed anemia 8.6, platelet count of 33. Type and screen pending. Correlation studies noncompressive. D-dimer elevated at 4.53. CMP non-impressive. Troponin negati ve. Occult blood negative. CTA revealed mild burden of pulmonary embolus in the right involving a segmental branch of the right lower lobe. Long earache feet related upper lobes/suprahilar mass. CPD. Possible adrenal metastasis. Patient will be admitted, started on high intensity heparin. Case discussed in depth with Dr. Alvarado. (Pepito iSmon) - Lab Data Lab Results 09/10/18 09/10/18 09/10/18 Range/Units 21:45 21:45 21:45 WBC 3.8 (3.8-10.6) k/uL RBC 2.76 L (4.30-5.90) m/uL Hgb 8.6 L (13.0-17.5) gm/dL Hct 26.2 L (39.0-53.0) % MCV 94.6 (80.0-100.0) fL MCH 31.0 (25.0-35.0) pg MCHC 32.8 (31.0-37.0) g/dL RDW 19.4 H (11.5-15.5) % Plt Count 33 L (150-450) k/uL Neutrophils % 73 % Lymphocytes % 18 % Monocytes % 6 % Eosinophils % 0 % Basophils % 0 % Neutrophils # 2.8 (1.3-7.7) k/uL Lymphocytes # 0.7 L (1.0-4.8) k/uL Monocytes # 0.2 (0-1.0) k/uL Eosinophils # 0.0 (0-0.7) k/uL Basophils # 0.0 (0-0.2) k/uL Poikilocytosis Slight Anisocytosis Slight Macrocytosis Slight PT 9.7 (9.0-12.0) sec INR 0.9 (<1.2) APTT 23.0 (22.0-30.0) sec D-Dimer 4.53 H (<0.60) mg/L FEU Sodium 136 L (137-145) mmol/L Potassium 4.3 (3.5-5.1) mmol/L Chloride 103 (98-107) mmol/L Carbon Dioxide 24 (22-30) mmol/L Anion Gap 9 mmol/L BUN 32 H (9-20) mg/dL Creatinine 0.92 (0.66-1.25) mg/dL Est GFR (CKD-EPI)AfAm >90 (>60 ml/min/1.73 sqM) Est GFR (CKD-EPI)NonAf >90 (>60 ml/min/1.73 sqM) Glucose 113 H (74-99) mg/dL Calcium 9.5 (8.4-10.2) mg/dL Total Bilirubin 0.4 (0.2-1.3) mg/dL AST 28 (17-59) U/L ALT 37 (21-72) U/L Alkaline Phosphatase 66 (38-126) U/L Troponin I (0.000-0.034) ng/mL Total Protein 6.6 (6.3-8.2) g/dL Albumin 3.8 (3.5-5.0) g/dL Stool Occult Blood (Negative) 09/10/18 09/10/18 Range/Units 21:45 23:14 WBC (3.8-10.6) k/uL RBC (4.30-5.90) m/uL Hgb (13.0-17.5) gm/dL Hct (39.0-53.0) % MCV (80.0-100.0) fL MCH (25.0-35.0) pg MCHC (31.0-37.0) g/dL RDW (11.5-15.5) % Plt Count (150-450) k/uL Neutrophils % % Lymphocytes % % Monocytes % % Eosinophils % % Basophils % % Neutrophils # (1.3-7.7) k/uL Lymphocytes # (1.0-4.8) k/uL Monocytes # (0-1.0) k/uL Eosinophils # (0-0.7) k/uL Basophils # (0-0.2) k/uL Poikilocytosis Anisocytosis Macrocytosis PT (9.0-12.0) sec INR (<1.2) APTT (22.0-30.0) sec D-Dimer (<0.60) mg/L FEU Sodium (137-145) mmol/L Potassium (3.5-5.1) mmol/L Chloride (98-107) mmol/L Carbon Dioxide (22-30) mmol/L Anion Gap mmol/L BUN (9-20) mg/dL Creatinine (0.66-1.25) mg/dL Est GFR (CKD-EPI)AfAm (>60 ml/min/1.73 sqM) Est GFR (CKD-EPI)NonAf (>60 ml/min/1.73 sqM) Glucose (74-99) mg/dL Calcium (8.4-10.2) mg/dL Total Bilirubin (0.2-1.3) mg/dL AST (17-59) U/L ALT (21-72) U/L Alkaline Phosphatase (38-126) U/L Troponin I <0.012 (0.000-0.034) ng/mL Total Protein (6.3-8.2) g/dL Albumin (3.5-5.0) g/dL Stool Occult Blood Negative (Negative) Disposition Is patient prescribed a controlled substance at d/c from ED?: No <Pepito Simon - Last Filed: 09/11/18 01:04> <Shady Goel - Last Filed: 09/11/18 02:04> Clinical Impression: Pulmonary embolism Disposition: ADMITTED IP TO THIS HOSP Condition: Serious Referrals: None,Stated [Primary Care Provider] - 1-2 days
[2018-09-11] MEDS: SODIUM CHLORIDE 0.9% 1,000 ML IV SCH ×3 (01:46→20:03)
[2018-09-11 06:20] LABS: Anisocytosis Slight; HCT 25.1 % (39.0-53.0); HGB 8.1 gm/dL (13.0-17.5); MCH 31.2 pg (25.0-35.0); MCHC 32.4 g/dL (31.0-37.0); MCV 96.3 fL (80.0-100.0); Macrocytosis Slight; Mean Platelet Volume 8.9; RDW 19.8 % (11.5-15.5); WBC 3.8 k/uL (3.8-10.6)
[2018-09-11 06:31] LABS: Platelet Count 36 k/uL (150-450)
--- NOTE | 2018-09-11 06:55 | P.HPIM ---
History of Present Illness H&P Date: 09/11/18 Chief Complaint: Pulmonary embolism 58-year-old male with history of lung cancer metastasis to the brain on chemotherapy Patient presented to the hospital due to positive finding of acute pulmonary embolism on CAT scan done outpatient. Patient has been following up with he matology oncology for lung cancer. He was recently diagnosed in July with acute DVT of the right lower extremity was started on Eliquis however he was noncompliant for which upon follow-up with hematology oncology they recommended to perform CAT scan of the chest due to a complaint of some heavy breathing. And that's how he was found to have pulmonary embolism and was sent to the hospital for further care. Patient admits to not taking Eliquis for at least a week now due to not feeling well while on it in combination with chemotherapy. So he decided on his own to stop Eliquis. He is currently on chemotherapy. He denies any striking symptoms of chest pain or trouble breathing. However patient is a poor historian and he just reported that he might have made a complaint of some heavy breathing to his doctor that's why the initiated the CAT scan of the chest. Otherwise he denies any GI bleeding any fevers chills or any chest pain or trouble breathing denies any abdominal pain nausea vomiting changes in his bowel or urinary habits In the ED was started on heparin drip was admitted for further care and evaluation Review of Systems Pertinent positives as noted in HPI. All other systems were reviewed and are negative Past Medical History Past Medical History: Cancer, Pulmonary Embolus (PE) History of Any Multi-Drug Resistant Organisms: None Reported Past Surgical History: Orthopedic Surgery Additional Past Surgical History / Comment(s): right elbow Past Anesthesia/Blood Transfusion Reactions: No Reported Reaction Past Psychological History: No Psychological Hx Reported Smoking Status: Former smoker Past Alcohol Use History: None Reported Past Drug Use History: None Reported - Past Family History Brother(s) Family Medical History: Coronary Artery Disease (CAD) Mother Family Medical History: Cancer Additional Family Medical History / Comment(s): lung Medications and Allergies Home Medications Medication Instructions Recorded Confirmed Type Dexamethasone 4 mg PO DIRECTED #53 tablet 06/07/18 Rx Allergies Allergy/AdvReac Type Severity Reaction Status Date / Time No Known Allergies Allergy Verified 06/03/18 17:36 Physical Exam Vitals: Vital Signs Temp Pulse Pulse Resp BP BP Pulse Ox 09/11/18 04:00 90 16 07/09/19 03:43 90 16 132/81 99 09/11/18 02:40 88 16 102/68 98 09/11/18 01:17 97.5 F L 98 17 101/71 98 09/10/18 23:30 97.9 F 90 18 116/81 97 09/10/18 22:30 87 18 121/81 96 09/10/18 21:56 98 18 114/72 96 09/10/18 20:17 98.3 F 119 H 18 126/79 99 Intake and Output 09/10/18 09/10/18 09/11/18 14:59 22:59 06:59 Other: Voiding Method Toilet Weight 66 kg 64.5 kg Constitutional: No acute distress, conversant, pleasant Eyes: Anicteric sclerae, moist conjunctiva, no lid-lag Pupils equal round reactive to light ENMT: NC/AT Oropharynx clear, no erythema, exudates Neck: Supple, FROM, no masses, or JVD No carotid bruits No thyromegaly Lungs: Clear to auscultation Clear to percussion Normal respiratory effort, no accessory muscle use Cardiovascular: Heart regular in rate and rhythm, No murmurs, gallops, or rubs No peripheral edema Abdominal: Soft Nontender, no guarding, rebound or rigidity Abdomen moving with respiration Normoactive bowel sounds No hepatomegaly, No splenomegaly No palpable mass No abdominal wall hernia noted Skin: Normal temperature, tone, texture, turgor No induration No subcutaneous nodules No rash, lesions No ulcers Extremities: No digital cyanosis No clubbing Pedal pulses intact and symmetrical Radial pulses intact and symmetrical No calf tenderness Psychiatric: Alert and oriented to person, place and time Appropriate affect fair judgement Neuro Muscles Strength 5/5 in all 4 extremities Sensation to light touch grossly present throughout Cranial nerves II-XII grossly intact No focal sensory deficits Lymphatics: no palpable cervical or supraclavicular , or inguinal lymph nodes Results CBC & Chem 7: 09/11/18 05:20 09/10/18 21:45 Labs: Abnormal Lab Results - Last 24 Hours (Table) 09/10/18 09/10/18 09/10/18 Range/Units 21:45 21:45 21:45 RBC 2.76 L (4.30-5.90) m/uL Hgb 8.6 L (13.0-17.5) gm/dL Hct 26.2 L (39.0-53.0) % RDW 19.4 H (11.5-15.5) % Plt Count 33 L (150-450) k/uL Lymphocytes # 0.7 L (1.0-4.8) k/uL D-Dimer 4.53 H (<0.60) mg/L FEU Sodium 136 L (137-145) mmol/L BUN 32 H (9-20) mg/dL Glucose 113 H (74-99) mg/dL Thrombosis Risk Factor Assmnt - Choose All That Apply Each Factor Represents 1 point: Age 41-60 years Thrombosis Risk Factor Assessment Total Risk Factor Score: 1 Thrombosis Risk Factor Assessment Level: Low Risk Assessment and Plan Assessment: 58-year-old male with history of lung cancer with metastases to the brain admitted as inpatient with anticipated to stay more than 48 hours due to acute pulmonary embolism patient was started on heparin drip. Patient also has lung cancer with metastases to the brain. 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
[2018-09-11 06:56] LABS: Band Neutrophils % 2 %; Lymphocytes # (M) 0.95 k/uL (1.0-4.8); Monocytes # (M) 0.08 k/uL (0-1.0); Myelocytes # (M) 0.15 k/uL (0); Myelocytes % 4 %; Neutrophils % (M) 68 %; Nucleated Red Blood Cells 0 /100 WBC (0-0); Polychromasia Present; Total Cells Counted 200
--- NOTE | 2018-09-11 09:04 | CT ---
EXAMINATION TYPE: CT brain wo con DATE OF EXAM: 09/11/2018 COMPARISON: 06/05/2018 HISTORY: 58-year-old male Brain mets, heparin gtt TECHNIQUE: Examination was done in axial plane without intravenous contrast. Coronal and sagittal r econstructions performed. CT DLP: 1099.4 mGycm Automated exposure control for dose reduction was used. FINDINGS: Right frontal mass redemonstrated measuring 3.5 cm on sagittal series versus approximately 3.0 cm on 06/05/2018 (on sagittal series), overall relatively similar to slightly increased in size. Associated v asogenic edema/white matter hypodensity extending throughout the superior right frontal lobe is simil ar. The previously seen 4.7 cm left parietal lobe mass is no longer well demonstrated. On sagittal series , there is suggestion of a residual 2.3 cm hypodense mass in this location. White matter hypodensity in the left parietal lobe extending into the posterior left temporal lobe persists. No evidence for acute intracranial hemorrhage or extra-axial fluid collection. No midline shift, hydr ocephalus, or herniation identified. No effacement of basal subarachnoid cisterns. Partially empty sella. Paranasal sinuses show trace mucosal thickening left maxillary sinus. Mastoid air cells well pneumati zed. Orbits and globes are intact. IMPRESSION: 1. Left parietal mass less pronounced/smaller, estimated at 2.3 cm versus 4.7 cm, previously. Surroun ding vasogenic edema/white matter hypodensity is similar. 2. Superior right frontal lobe mass stable to minimally increased in size at 3.5 cm versus 3.0 cm, pr eviously. Similar associated vasogenic edema/white matter hypodensity. 3. No acute intracranial hemorrhage, midline shift, or herniation.
--- NOTE | 2018-09-11 09:07 | P.PN ---
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 A CBC was done which showed a hemoglobin of 8.6, platelets 33. He was subsequently started on a heparin drip. He was admitted to the selective floor for further monitoring. On the morning of 09/11 it was noted that he had a history of brain metastases, his PTT was 113 and his heparin drip was held. Albumin aware of his history of brain metastases on review of the chart on the morning of 09/11 I immediately contacted the floor to ensure his heparin drip was on hold. I called oncology and discussed the case we determined it would be appropriate to transfuse 1 unit of platelets to ensure that his platelet count is greater than 50, repeat a stat head CT to rule out intracranial hemorrhage into the mass lesions, and transfer him to the ICU for closer monitoring. Heparin drip will remain on hold at this point in time. Patient seen and examined at bedside prior to transfer to the ICU. He denies any weakness, numbness or tingling, changes in vision, headache, or difficulty with speech. He denies any chest pain or shortness of breath. Objective - Vital Signs Vital signs: Vital Signs Temp 97.5 F L 09/11/18 01:17 Pulse 90 09/11/18 04:00 Resp 16 09/11/18 04:00 BP 132/81 09/11/18 03:43 Pulse Ox 99 09/11/18 03:43 Intake & Output 09/10/18 09/11/18 09/11/18 18:59 06:59 18:59 Intake Total 99.792 360 Output Total 400 Balance -300.208 360 Weight 64.5 kg Intake: Intake, IV Titration 99.792 Amount Heparin Sod,Pork in 0.45% 99.792 NaCl 25,000 unit In 0.45 % NaCl 1 250ml.bag @ 18 UNITS/KG/HR 11.88 mls/hr IV .[id number] [facility] Rx#: [id number] Oral 360 Output: Urine 400 Other: Voiding Method Toilet - Exam General: non toxic, no distress, appears at stated age Derm: warm, dry Head: atraumatic, normocephalic, symmetric Eyes: EOMI, no lid lag, anicteric sclera Mouth: no lip lesion, mucus membranes moist Cardiovascular: S1S2 reg, no murmur, positive posterior tibial pulse bilateral, Lungs: CTA bilateral, no rhonchi, no rales , no accessory muscle use Abdominal: soft, nontender to palpation, no guarding, no appreciable organomegaly Ext: no gross muscle atrophy, no edema, no contractures Neuro: CN II-XI grossly intact, light touch intact bilateral face, upper extremities, and lower extremities. Muscle strength 5 out of 5 in bilateral upper and lower extremities, normal finger to nose Psych: Alert, oriented, appropriate affect - Labs CBC & Chem 7: 09/11/18 05:20 09/10/18 21:45 Labs: Abnormal Lab Results - Last 24 Hours (Table) 09/10/18 09/10/18 09/10/18 Range/Units 21:45 21:45 21:45 RBC 2.76 L (4.30-5.90) m/uL Hgb 8.6 L (13.0-17.5) gm/dL Hct 26.2 L (39.0-53.0) % RDW 19.4 H (11.5-15.5) % Plt Count 33 L (150-450) k/uL Lymphocytes # 0.7 L (1.0-4.8) k/uL Lymphocytes # (Manual) (1.0-4.8) k/uL Myelocytes # (Manual) (0) k/uL APTT (22.0-30.0) sec D-Dimer 4.53 H (<0.60) mg/L FEU Sodium 136 L (137-145) mmol/L BUN 32 H (9-20) mg/dL Glucose 113 H (74-99) mg/dL 09/11/18 09/11/18 Range/Units 05:20 05:20 RBC 2.60 L (4.30-5.90) m/uL Hgb 8.1 L (13.0-17.5) gm/dL Hct 25.1 L (39.0-53.0) % RDW 19.8 H (11.5-15.5) % Plt Count 36 L (150-450) k/uL Lymphocytes # (1.0-4.8) k/uL Lymphocytes # (Manual) 0.95 L (1.0-4.8) k/uL Myelocytes # (Manual) 0.15 H (0) k/uL APTT 113.1 H* (22.0-30.0) sec D-Dimer (<0.60) mg/L FEU Sodium (137-145) mmol/L BUN (9-20) mg/dL Glucose (74-99) mg/dL Assessment and Plan Assessment: Right lower lobe segmental pulmonary emboli associated with R lower extremity know DVT -Heparin drip on hold secondary to supratherapeutic level in addition to platelet of 36, frequent neurochecks -oncology recommendations -Supplemental O2 as tolerated Thrombocytopenia with platelets of 36 -Suspect related to chemotherapy -Await oncology recommendations -Transfuse platelets after discussion with oncology to maintain platelets greater than 50 Metastatic adenocarcinoma of the lung with metastases to the brain, bone, and adrenal glands status post radiosurgery for mass lesions - Await oncology recommendations Anemia - suspect chemotherapy induced Case discussed with Katelyn Wood NP from oncology: patient given 1 unit plts, head CT, transferred to ICU for closer monitoring. DVT prophylaxis: SCDs Discussed with: patient, nursing Anticipated discharge: 3-[address]: home with home health/ palliative care A total of 45 minutes was spent on the care of this complex patient more than 50% of the time was spent in counseling and care coordination.
[2018-09-11 09:13] LABS: Glucose,Whole Blood 123 mg/dL (75-99)
[2018-09-11 10:10] VITALS: BMI 20.4
[2018-09-11] MEDS ORDERED: APIXABAN 5 MG TAB PO SCH (10:30)
--- NOTE | 2018-09-11 12:17 | P.CNPUL ---
History of Present Illness Consult date: 09/11/18 Requesting physician: Rekha Casillas Reason for consult: pulmonary embolism Chief complaint: Shortness of breath History of present illness: This is a 58-year-old white male with history of stage IV adenocarcinoma of the lungs, metastatic to the brain, bone, and the glans, and history of deep vein thromboses involving the right lower extremity back in July of 2018, and this was treated with anticoagulation therapy in the form of Eliquis. Patient was seen yesterday by his oncologist for symptoms of increased shortness of breath and heaviness in the chest, and he informed the oncologist that he was not very compliant with Eliquis. Hence patient was sent for a CT angiogram of the chest, and it showed pulmonary embolism involving segmental branch of the right lower lobe pulmonary artery. There was also evidence of right upper lobe mass which is supposedly the initial site of his bronchogenic carcinoma. Considering positive CT angiogram of the chest, and considering the patient had low platelets, patient was initially admitted to a monitor bed on selective, however considering his low platelets, and considering the patient had metastatic lesions to the brain with angioedema, there was a concern about intercerebral bleeding, and the patient was admitted to the ICU as a precautionary measure. His heparin was supratherapeutic early this morning, and is presently on hold. His platelets are 57,000, and he is receiving a platelets transfusion as ordered by oncology. Later on I believe the oncologist recommended placement of a [place] filter because the patient is noncompliant with his medical therapy/anticoagulation therapy/Eliquis. Hence he consulted vascular surgery for IVC filter placement. During my evaluation of the patient, patient was noted to be hemodynamically stable, in no distress, he is on room air, O2 saturation is 99%, patient is basically asymptomatic. Heparin remains presently on hold, he is about to receive platelets transfusion and is yet to be seen by vascular surgery on consultation. Review of Systems CONSTITUTIONAL: No fever, no malaise, no fatigue. HEENT: No recent visual problems or hearing problems. Denied any sore throat. CARDIOVASCULAR: No chest pain, orthopnea, PND, no palpitations, no syncope. PULMONARY: No shortness of breath, no cough, no hemoptysis. GASTROINTESTINAL: No diarrhea, no nausea, no vomiting, no abdominal pain. NEUROLOGICAL: No headaches, no weakness, no numbness. HEMATOLOGICAL: Denies any bleeding or petechiae. GENITOURINARY: Denies any burning micturition, frequency, or urgency. MUSCULOSKELETAL/RHEUMATOLOGICAL: Denies any joint pain, swelling, or any muscle pain. ENDOCRINE: Denies any polyuria or polydipsia. Past Medical History Past Medical History: Cancer, Pulmonary Embolus (PE) History of Any Multi-Drug Resistant Organisms: None Reported Past Surgical History: Orthopedic Surgery Additional Past Surgical History / Comment(s): right elbow Past Anesthesia/Blood Transfusion Reactions: No Reported Reaction Past Psychological History: No Psychological Hx Reported Smoking Status: Former smoker Past Alcohol Use History: None Reported Past Drug Use History: None Reported - Past Family History Brother(s) Family Medical History: Coronary Artery Disease (CAD) Mother Family Medical History: Cancer Additional Family Medical History / Comment(s): lung Medications and Allergies Home Medications Medication Instructions Recorded Confirmed Type Dexamethasone [Hexadrol] See Taper PO DIRECTED 09/11/18 09/11/18 History Folic Acid 1 mg PO DAILY 09/11/18 09/11/18 History Allergies Allergy/AdvReac Type Severity Reaction Status Date / Time No Known Allergies Allergy Verified 09/11/18 08:39 Physical Exam Vitals: Vital Signs Temp Pulse Pulse Resp BP BP Pulse Ox 09/11/18 11:30 75 20 110/69 98 09/11/18 11:09 98.1 F 72 20 119/69 96 09/11/18 11:00 73 21 111/71 100 09/11/18 10:46 98.3 F 80 20 111/71 98 09/11/18 10:30 72 21 117/73 97 09/11/18 10:27 98.1 F 80 20 113/74 98 09/11/18 10:17 98.2 F 82 20 117/73 99 09/11/18 10:00 78 16 109/73 98 09/11/18 09:30 80 20 109/73 99 09/11/18 09:00 89 15 99 09/11/18 08:54 97.8 F 89 20 107/68 98 09/11/18 04:00 90 16 09/11/18 03:43 90 16 132/81 99 09/11/18 02:40 88 16 102/68 98 09/11/18 01:17 97.5 F L 98 17 101/71 98 09/10/18 23:30 97.9 F 90 18 116/81 97 09/10/18 22:30 87 18 121/81 96 09/10/18 21:56 98 18 114/72 96 09/10/18 20:17 98.3 F 119 H 18 126/79 99 Intake and Output 09/10/18 09/11/18 09/11/18 22:59 06:59 14:59 Intake Total 99.792 1250 Output Total 400 0 Balance -327.025 4249 Intake: Intake, IV Titration 99.792 300 Amount Heparin Sod,Pork in 0.45% 99.792 NaCl 25,000 unit In 0.45 % NaCl 1 250ml.bag @ 18 UNITS/KG/HR 11.88 mls/hr IV .Q21H3M [facility] Rx#: [id number] Sodium Chloride 0.9% 1, 300 000 ml @ 100 mls/hr IV . Q10H [facility] Rx#:[id number] Oral 360 Blood Product 590 Platelet Pheresis Acda1 295 Unit [id number] Output: Urine 400 0 Other: Voiding Method Toilet Toilet # Voids 1 Weight 66 kg 64.5 kg 64.5 kg Physical Exam revealed 58-year-old white male in no distress. Head: Atraumatic, normocephalic. HEENT: [No neck masses.] [No thyromegaly.] [No JVD.] Chest: [Diminished breath sounds at the bases no crackles or rhonchi or wheezes, no chest wall tenderness, symmetrical chest expansion noted..] Cardiac Exam: [Normal S1 and S2, no S3 gallop, no murmur.] Abdomen: [Soft, nontender, no megaly, no rebound, no guarding, normal bowel sounds.] Extremities: [No clubbing, no edema, no cyanosis.] Neurological Exam: [No focal neurologic deficit. Alert oriented 3. Psychiatric: Normal mood affect and normal mental status examination. Skin: No rashes.] Results - Laboratory Findings CBC and BMP: 09/11/18 05:20 09/10/18 21:45 PT/INR, D-dimer PT 9.7 sec (9.0-12.0) 09/10/18 21:45 INR 0.9 (<1.2) 09/10/18 21:45 D-Dimer 4.53 mg/L FEU (<0.60) H 09/10/18 21:45 Abnormal lab findings: Abnormal Labs 09/10/18 09/10/18 09/10/18 21:45 21:45 21:45 RBC 2.76 L Hgb 8.6 L Hct 26.2 L RDW 19.4 H Plt Count 33 L Lymphocytes # 0.7 L Lymphocytes # (Manual) Myelocytes # (Manual) APTT D-Dimer 4.53 H Sodium 136 L BUN 32 H Glucose 113 H POC Glucose (mg/dL) 09/11/18 09/11/18 09/11/18 05:20 05:20 08:47 RBC 2.60 L Hgb 8.1 L Hct 25.1 L RDW 19.8 H Plt Count 36 L Lymphocytes # Lymphocytes # (Manual) 0.95 L Myelocytes # (Manual) 0.15 H APTT 113.1 H* D-Dimer Sodium BUN Glucose POC Glucose (mg/dL) 123 H - Diagnostic Findings CT scan - chest: image reviewed (As noted in HPI.) Assessment and Plan Assessment: Impression: 1 acute right lower lobe segmental pulmonary embolism 2 metastatic adenocarcinoma of the right upper lobe, metastatic to brain, bones, and adrenal glands. 3 thrombocytopenia, most likely related to chemotherapy, patient will be receiving platelets transfusion as ordered by oncology. 4 anemia secondary to chemotherapy. 5 history of deep vein thrombosis 6 noncompliance with Eliquis 7 metastatic adenocarcinoma of the lung to the brain with vasogenic edema, patient is maintained on Decadron. Did receive previous radiation therapy. Recommendation: Continue present treatment plan including platelets transfusion, either consider placing the patient back on Eliquis and make sure he is compliant with it, or possibly consider IVC filter placement. Patient must be made aware that he should be more compliant with his treatment, however overall prognosis remains poor and the matter what is being done. Considering the patient is hemodynamically stable, and considering his overall condition, I believe the patient could be transferred out of the ICU once a bed becomes available. My recommendation would be to place back on Eliquis. Time with Patient: Greater than 30
--- NOTE | 2018-09-11 12:18 | P.CONS ---
History of Present Illness - Reason for Consult Consult date: 09/11/18 NSCLA mets Brain in chemo/immune therapy Requesting physician: Rekha Casillas - Chief Complaint Tachycardia and SOB - History of Present Illness Mr. Alamo is a pleasant but very confused male who was referred to our office 04/24 by Orthopedics who saw pt for c/o progressive pain in the left shoulder/left upper back, became so severe he had to stop working and go on disability, he thought he has work up in [place] but those records were never made available. Pt had imaging that revealed a destructive lesion involving the left scapula. CT CAP and bone scan [facility], RUL 2.3cm mass, rt hilar adenopathy, bilateral adrenal gland masses, peritoneal deposit, the [place] bone scan was positive for bone mets. He was taken to the ER a few weeks ago by his brother for confusion, CT of the brain revealed multiple bran mets which he completed WBRT. He did finish radiation to brain. He was started on chemotherapy and immune therapy with Carboplatin, Almta, Keytruda and Xgeva, last on 08/23/18. He is non- adherent, as he is forgetful. Review of Systems A 14 point review of systems was assessed and completed in all negative except for HPI Past Medical History Past Medical History: Cancer, Pulmonary Embolus (PE) History of Any Multi-Drug Resistant Organisms: None Reported Past Surgical History: Orthopedic Surgery Additional Past Surgical History / Comment(s): right elbow Past Anesthesia/Blood Transfusion Reactions: No Reported Reaction Past Psychological History: No Psychological Hx Reported Smoking Status: Former smoker Past Alcohol Use History: None Reported Past Drug Use History: None Reported - Past Family History Brother(s) Family Medical History: Coronary Artery Disease (CAD) Mother Family Medical History: Cancer Additional Family Medical History / Comment(s): lung Medications and Allergies Home Medications Medication Instructions Recorded Confirmed Type Dexamethasone [Hexadrol] See Taper PO DIRECTED 09/11/18 09/11/18 History Folic Acid 1 mg PO DAILY 09/11/18 09/11/18 History Allergies Allergy/AdvReac Type Severity Reaction Status Date / Time No Known Allergies Allergy Verified 09/11/18 08:39 Physical Exam Vitals: Vital Signs Temp Pulse Pulse Resp BP BP Pulse Ox 09/11/18 12:00 73 20 111/72 98 09/11/18 11:30 75 20 110/69 98 09/11/18 11:09 98.1 F 72 20 119/69 96 09/11/18 11:00 73 21 111/71 100 09/11/18 10:46 98.3 F 80 20 111/71 98 09/11/18 10:30 72 21 117/73 97 09/11/18 10:27 98.1 F 80 20 113/74 98 09/11/18 10:17 98.2 F 82 20 117/73 99 09/11/18 10:00 78 16 109/73 98 09/11/18 09:30 80 20 109/73 99 09/11/18 09:00 89 15 99 09/11/18 08:54 97.8 F 89 20 107/68 98 09/11/18 04:00 90 16 09/11/18 03:43 90 16 132/81 99 09/11/18 02:40 88 16 102/68 98 09/11/18 01:17 97.5 F L 98 17 101/71 98 09/10/18 23:30 97.9 F 90 18 116/81 97 09/10/18 22:30 87 18 121/81 96 09/10/18 21:56 98 18 114/72 96 09/10/18 20:17 98.3 F 119 H 18 126/79 99 Intake and Output 09/10/18 09/11/18 09/11/18 22:59 06:59 14:59 Intake Total 99.792 1350 Output Total 400 0 Balance -385.489 2524 Intake: Intake, IV Titration 99.792 400 Amount Heparin Sod,Pork in 0.45% 99.792 NaCl 25,000 unit In 0.45 % NaCl 1 250ml.bag @ 18 UNITS/KG/HR 11.88 mls/hr IV .Q21H3M [facility] Rx#: [id number] Sodium Chloride 0.9% 1, 400 000 ml @ 100 mls/hr IV . Q10H [facility] Rx#:[id number] Oral 360 Blood Product 590 Platelet Pheresis Acda1 295 Unit [id number] Output: Urine 400 0 Other: Voiding Method Toilet Toilet # Voids 1 Weight 66 kg 64.5 kg 64.5 kg General: Alert and Oriented x3, No Acute Distress Head: Normocytic, Atraumatic Neck: Supple Mouth: No Lesions, No Thrush Eyes: Non-sclerotic No Palpable cervical, supraclavicular, axillary adenopathy Heart: Regular Rate, Regular Rhythm Lungs: Clear to Ausculations, No Wheeze, No Rhonchi, Diminishe bilateral lower lobes, No increased respiratory effort noted Abdomen: Soft, Non-Distended, Non-Tended, BSx4 Extremities: No Edema, Equal Strength Neurological: No Focal Defects: No sensory or motor deficits noted Psych: Calm and cooperative Results CBC & Chem 7: 09/11/18 12:01 09/10/18 21:45 Labs: Abnormal Lab Results - Last 24 Hours (Table) 09/10/18 09/10/18 09/10/18 Range/Units 21:45 21:45 21:45 RBC 2.76 L (4.30-5.90) m/uL Hgb 8.6 L (13.0-17.5) gm/dL Hct 26.2 L (39.0-53.0) % RDW 19.4 H (11.5-15.5) % Plt Count 33 L (150-450) k/uL Lymphocytes # 0.7 L (1.0-4.8) k/uL Lymphocytes # (Manual) (1.0-4.8) k/uL Myelocytes # (Manual) (0) k/uL APTT (22.0-30.0) sec D-Dimer 4.53 H (<0.60) mg/L FEU Sodium 136 L (137-145) mmol/L BUN 32 H (9-20) mg/dL Glucose 113 H (74-99) mg/dL POC Glucose (mg/dL) (75-99) mg/dL 09/11/18 09/11/18 09/11/18 Range/Units 05:20 05:20 08:47 RBC 2.60 L (4.30-5.90) m/uL Hgb 8.1 L (13.0-17.5) gm/dL Hct 25.1 L (39.0-53.0) % RDW 19.8 H (11.5-15.5) % Plt Count 36 L (150-450) k/uL Lymphocytes # (1.0-4.8) k/uL Lymphocytes # (Manual) 0.95 L (1.0-4.8) k/uL Myelocytes # (Manual) 0.15 H (0) k/uL APTT 113.1 H* (22.0-30.0) sec D-Dimer (<0.60) mg/L FEU Sodium (137-145) mmol/L BUN (9-20) mg/dL Glucose (74-99) mg/dL POC Glucose (mg/dL) 123 H (75-99) mg/dL CT scan - chest: report reviewed CT Scan - head: report reviewed Assessment and Plan Plan: Assessment and Recommendations: Non-Small Cell Lung Cancer - Adenocarcinoma - Mets to Brain and Bone - Status Post Whole Brain Xrt in July 2018. - Carboplatin, Almta, Keytruda, and Xgeva - Continue Folic Acid New Acute PE - Non-adherent to prescribed eliquis - In the picture of hypercoagulable state and thrombocytopenia we have consulted Dr. Cavazos to place IVC filter Thrombocytopenia: Secondary to chemotherapy - Hold Eliquis - Keep platelets above 50K while on Heparin Drip, no bolus - Plan for IVC filter, Dr. Cavazos Consult Placed. After IVC filter placed Heparin drip can be stopped and no AC therapy at discharge.
[2018-09-11 12:26] LABS: Anisocytosis Moderate; HCT 21.1 % (39.0-53.0); Hypochromasia Slight; MCH 31.9 pg (25.0-35.0); MCHC 33.2 g/dL (31.0-37.0); MCV 96.2 fL (80.0-100.0); Macrocytosis Slight; Mean Platelet Volume 9.5; Poikilocytosis Slight; RBC 2.19 m/uL (4.30-5.90); RDW 20.8 % (11.5-15.5)
[2018-09-11 12:32] LABS: Platelet Count 54 k/uL (150-450)
[2018-09-11] MEDS ORDERED: MIDAZOLAM (PF) 2 MG/2 ML VIAL IV ONE (15:12)
[2018-09-11] MEDS ORDERED: LIDOCAINE 1% INJ 10MG/ML (20 ML MDV) SQ ONE (15:14)
[2018-09-11] MEDS ORDERED: IV FLUID CONTINUATION 1,000 ML IV ONE (15:15)
[2018-09-11] MEDS ORDERED: IOPAMIDOL-370 100ML BTL INJ ONE (15:30)
--- NOTE | 2018-09-11 15:38 | P.PCN ---
Description of Procedure: Preoperative diagnoses is see of the lung with metastases to the brain, history of pulmonary embolism, history of deep and thrombosis of the right leg, noncompliant to anticoagulation Procedure inferior venacavogram, placement of a Morgan filter infrarenal, sedation time 22 minutes Procedure patient brought to the [facility] right groin were prepped and draped applied sterile manner sound used to select the right common femoral vein seems to be at this clot in the common femoral vein we decided go on the left femoral vein 1% lidocaine for infected ultrasound-guided micropuncture dated introduced left femoral vein to get was passed. Then 4-Swazi dilator advanced on the top of guidewire then dye was injected check the left iliac vein which was patent then the guidewire was passed and 45-Swazi sheath across. The guidewire. On the top of guidewire be placed a pigtail catheter with power injector venacavogram was performed both in the renal were visualized no clots was seen in the vena cava. 5-Swazi sheath was removed then we passed a dilator on the top of the guidewire. Then we used dilator with the sheath across on the top of Glidewire and sheath was passed below the renal vein and a Morgan filter was also the top the guidewire deployed below the renal veins guide was then removed filter was in good position pressure held patient prior the procedure well
[2018-09-11] MEDS: DEXAMETHASONE 2 MG TAB PO SCH ×2 (16:23→20:02)
[2018-09-11] MEDS: FOLIC ACID 1 MG TAB PO SCH (16:23)
--- NOTE | 2018-09-11 22:16 | CONS ---
DATE OF CONSULTATION: 09/11/2018 This is a 58-year-old gentleman. I was consulted for placement of a vena cava filter. Patient has history of cancer of the lung, on chemotherapy, and the patient also has been diagnosed with a pulmonary embolism, DVT. The patient was on Eliquis. He is noncompliant. He is not taking his medication. The patient also has brain metastases. The patient was seen by Oncology and was recommended to have a filter placement. PHYSICAL EXAMINATION: Patient was seen in his room. NECK: Supple. Trachea central. CHEST: Clear. ABDOMEN: Soft. Femoral pulses are present. Patient's platelet count is 52. Patient has a history of chemo and Hematology recommended that filter can be placed once the platelet count is above 50. PLAN: Vena cavagram and placement of filter. Risks and complications were discussed, including bleeding, infection, migration, thrombosis, infection. LINDAL / KATEYN: [id number] / MTDD
[2018-09-12] MEDS: SODIUM CHLORIDE 0.9% 1,000 ML IV SCH (03:40)
[2018-09-12 07:40] LABS: Anisocytosis Moderate; Basophils % (A) 0 %; Eosinophils % (A) 1 %; HCT 25.4 % (39.0-53.0); HGB 8.2 gm/dL (13.0-17.5); Lymphocytes # (A) 0.9 k/uL (1.0-4.8); Lymphocytes % (A) 21 %; MCH 31.4 pg (25.0-35.0); MCHC 32.1 g/dL (31.0-37.0); MCV 97.7 fL (80.0-100.0); Macrocytosis Slight; Mean Platelet Volume 8.6; Monocytes # (A) 0.3 k/uL (0-1.0); Monocytes % (A) 7 %; Neutrophils % (A) 69 %; Poikilocytosis Slight; WBC 4.4 k/uL (3.8-10.6)
--- NOTE | 2018-09-12 08:04 | IR ---
EXAMINATION TYPE: IR IVC filter placement DATE OF EXAM: 09/11/2018 COMPARISON: NONE HISTORY: Fluoroscopy time. Fluoroscopy was provided to the referring clinician. 2.1 minutes of fluoroscopy utilized.
[2018-09-12 08:29] LABS: Platelet Count 71 k/uL (150-450)
[2018-09-12] MEDS: FOLIC ACID 1 MG TAB PO SCH (09:36)
[2018-09-12] MEDS: DEXAMETHASONE 2 MG TAB PO SCH (09:36)
[2018-09-12 11:49] VITALS: BP 107/67; PULSE 97; RESP 16; TEMP 97.7
--- NOTE | 2018-09-12 12:01 | P.DS ---
Providers Date of admission: 09/11/18 02:03 Expected date of discharge: 09/12/18 Attending physician: Kathrin Anderson MD Consults: 09/11/18 01:06 Consult Physician Stat Consulting Provider: Keo Owen Consult Reason/Comments: hx of lung cancer, possible mets on CT, R PE Do you want consulting provider notified?: Yes 09/11/18 07:59 Consult Physician Routine Consulting Provider: Alfonso Clark Consult Reason/Comments: brain mets heparin gtt Do you want consulting provider notified?: Yes 09/11/18 08:07 Consult Physician Stat Consulting Provider: Alfonso Clark Consult Reason/Comments: icu management Do you want consulting provider notified?: Yes 09/11/18 09:25 Consult Physician Urgent Consulting Provider: Derek Cavazos Consult Reason/Comments: IVC filter placement Do you want consulting provider notified?: Yes Primary care physician: Stated None Hospital Course: Discharge Diagnosis: Right segmental pulmonary embolus Thrombocytopenia Adenocarcinoma of the lung with known metastasis to the brain, bone, and adrenal glands Status post IVC filter placement Right lower extremity DVT Anemia, likely chemotherapy-induced Hospital Course: Patient is a 58-year-old male past medical history of adenocarcinoma of the lung stage IVB with metastases to the brain, bone, and adrenal glands, recent diagnosis of right lower extremity DVT in July 2018, and prior tobacco abuse who presented at the direction of his oncologist due to outpatient CTA chest demonstrating pulmonary emboli which found mild burden of pulmonary embolus on the right involving the segmental branch of the right lower lobe, and also redemonstrated a right upper lobe suprahilar mass partially encasing the segmental right upper lobe bronchus and bronchial arterial branching that is narrowing, COPD, and diffuse thickening of left greater than right adrenal glands. A CBC was done which showed a hemoglobin of 8.6, platelets 33. He was subsequently started on a heparin drip. He was admitted to the selective floor for further monitoring. On the morning of 09/11 it was noted that he had a history of brain metastases, his PTT was 113 and his heparin drip was held. He was transfused 1 unit of platelets with his heparin drip was on hold. Dr. Cavazos was consulted and he underwent IVC filter placement on the afternoon of 09/11. It was noted that his clot burden in his lung was low as this was a segmental PE. He did have a high clot burden in his leg. Oncology is concern that if platelets are less than 50 he is at high risk for bleeding into his brain metastasis. Therefore he is discharged home without any anticoagulation therapy. Oncology will be closely following his CBC. He is due to have chemotherapy on 09/13. If his platelets stabilized low endurance. Risks and benefits of this plan were discussed with the patient. He is in agreement with plan of care. We have also arranged for him to have home health services to monitor his vital signs. Case was also discussed with radiation oncology and patient will continue on his dexamethasone for his edema surrounding his brain metastasis. Computed tomography scan was compared to prior MRI done in July of this year and showed smaller mL in size of the metastatic disease as well as a decrease in the edema. Patient improved faster than anticipated subsequently able to be discharged home less than 2 minutes. Patient seen and examined at bedside. No chest pain, SOB, nausea, or vomiting. Feeling well wants to be discharged home. Vital signs reviewed and stable. General: non toxic, no distress, appears at stated age, cachetic Derm: warm, dry Head: atraumatic, normocephalic, symmetric Eyes: EOMI, no lid lag, anicteric sclera Mouth: no lip lesion, mucus membranes moist Cardiovascular: S1S2 reg, no murmur, positive posterior tibial pulse bilateral, Lungs: CTA bilateral, no rhonchi, no rales , no accessory muscle use Abdominal: soft, nontender to palpation, no guarding, no appreciable organomegaly Ext: no gross muscle atrophy, no edema, no contractures Neuro: CN II-XI grossly intact, no focal neuro deficits Psych: Alert, oriented, appropriate affect A total of 35 minutes of time were spent preparing this complex discharge summary . Pertinent Studies: CT head-(automatic less prominent estimated 2.3 cm versus 4.7 cm previously, the surrounding vasogenic edema/white matter hypodensity is similar, superior right frontal lobe that stable to minimally increased at 3.5 cm, similar associated vasogenic edema. Procedures: IVC filter placement 09/11/18 Patient Condition at Discharge: Stable Plan - Discharge Summary Discharge Rx Participant: Yes New Discharge Prescriptions: New Acetaminophen Tab [Tylenol] 650 mg PO Q6HR PRN tab PRN Reason: Mild Pain Or Fever > 100.5 Continue Folic Acid 1 mg PO DAILY Dexamethasone [Hexadrol] See Taper PO DIRECTED Discharge Medication List Dexamethasone [Hexadrol] See Taper PO DIRECTED 09/11/18 [History] Folic Acid 1 mg PO DAILY 09/11/18 [History] Acetaminophen Tab [Tylenol] 650 mg PO Q6HR PRN tab 09/12/18 [Rx] Follow up Appointment(s)/Referral(s): Keo Owen MD [STAFF PHYSICIAN] - 09/13/18 1:15 pm Bubba Jewell MD [REFERRING] - 1 Week [facility], [NON-STAFF] - 1 Week None,Stated [Primary Care Provider] - 1-2 days Patient Instructions/Handouts: Inferior Vena Cava Filter Placement (GEN) Activity/Diet/Wound Care/Special Instructions: Regular diet, activity as tolerated No eliquis If you notice any abnormal bruising, bleeding, blood in her stool, blood in her urine, coughing up blood please seek medical attention immediately
--- NOTE | 2018-09-12 12:52 | P.PN ---
Subjective Progress Note Date: 09/12/18 Principal diagnosis: Acute right lower lobe segmental pulmonary emboli This is a 58-year-old white male with history of stage IV adenocarcinoma of the lungs, metastatic to the brain, bone, and the glans, and history of deep vein thromboses involving the right lower extremity back in July of 2018, and this was treated with anticoagulation therapy in the form of Eliquis. Patient was seen yesterday by his oncologist for symptoms of increased shortness of breath and heaviness in the chest, and he informed the oncologist that he was not very compliant with Eliquis. Hence patient was sent for a CT angiogram of the chest, and it showed pulmonary embolism involving segmental branch of the right lower lobe pulmonary artery. There was also evidence of right upper lobe mass which is supposedly the initial site of his bronchogenic carcinoma. Considering positive CT angiogram of the chest, and considering the patient had low platelets, patient was initially admitted to a monitor bed on selective, however considering his low platelets, and considering the patient had metastatic lesions to the brain with angioedema, there was a concern about intercerebral bleeding, and the patient was admitted to the ICU as a precautionary measure. His heparin was supratherapeutic early this morning, and is presently on hold. His platelets are 57,000, and he is receiving a platelets transfusion as ordered by oncology. Later on I believe the oncologist recommended placement of a [place] filter because the patient is noncompliant with his medical therapy/anticoagulation therapy/Eliquis. Hence he consulted vascular surgery for IVC filter placement. During my evaluation of the patient, patient was noted to be hemodynamically stable, in no distress, he is on room air, O2 sat uration is 99%, patient is basically asymptomatic. Heparin remains presently on hold, he is about to receive platelets transfusion and is yet to be seen by vascular surgery on consultation. The patient is seen today 09/12/2018 in follow-up on the regular medical floor. He is awake and alert in no acute distress. He denies any shortness of breath, cough or congestion. No hemoptysis. Continue good O2 saturations up to 100% on room air. He's been afebrile. Hemodynamically stable. White count 4.4. Hemoglobin 8.2. Platelet count 71,000. He is status post [place] filter placement yesterday. Objective - Vital Signs Vital signs: Vital Signs Temp 97.7 F 09/12/18 11:35 Pulse 97 09/12/18 11:35 Resp 16 09/12/18 11:35 BP 107/67 09/12/18 11:35 Pulse Ox 100 09/12/18 11:35 Intake & Output 09/11/18 09/12/18 09/12/18 18:59 06:59 18:59 Intake Total 2075 2030 Output Total 500 420 Balance 1575 1610 Weight 64.5 kg Intake: IV 25 Intake, IV Titration 1100 1200 Amount IV Fluid Continuation 1, 100 000 ml @ 0 mls/hr IV .STK -[facility] Rx#:[id number] Sodium Chloride 0.9% 1, 1000 1200 000 ml @ 100 mls/hr IV . Q10H [facility] Rx#:[id number] Oral 360 830 Blood Product 590 Platelet Pheresis Acda1 295 Unit [id number] Output: Urine 500 420 Other: Voiding Method Toilet Toilet # Voids 1 1 - Exam GENERAL EXAM: Pleasant 58-year-old gentleman. Alert, active, comfortable in no apparent distress. On room air. HEAD: Normocephalic. EYES: Normal reaction of pupils, equal size. NOSE: Clear with pink turbinates. THROAT: No erythema or exudates. NECK: No masses, no JVD. CHEST: No chest wall deformity. LUNGS: Equal air entry with no crackles, wheeze, rhonchi or dullness. CVS: S1 and S2 normal with no audible murmur, regular rhythm. ABDOMEN: No hepatosplenomegaly, normal bowel sounds, no guarding or rigidity. SPINE: No scoliosis or deformity SKIN: No rashes CENTRAL NERVOUS SYSTEM: No focal deficits, tone is normal in all 4 extremities. EXTREMITIES: There is no peripheral edema. No clubbing, no cyanosis. Peripheral pulses are intact. - Labs CBC & Chem 7: 09/12/18 06:57 09/10/18 21:45 Labs: Abnormal Lab Results - Last 24 Hours (Table) 09/12/18 Range/Units 06:57 RBC 2.60 L (4.30-5.90) m/uL Hgb 8.2 L (13.0-17.5) gm/dL Hct 25.4 L (39.0-53.0) % RDW 20.0 H (11.5-15.5) % Plt Count 71 L (150-450) k/uL Lymphocytes # 0.9 L (1.0-4.8) k/uL Assessment and Plan Assessment: Impression: 1 acute right lower lobe segmental pulmonary embolism 2 metastatic adenocarcinoma of the right upper lobe, metastatic to brain, bones, and adrenal glands. 3 thrombocytopenia, most likely related to chemotherapy, patient will be receiving platelets transfusion as ordered by oncology. 4 anemia secondary to chemotherapy. 5 history of deep vein thrombosis 6 noncompliance with Eliquis 7 metastatic adenocarcinoma of the lung to the brain with vasogenic edema, patient is maintained on Decadron. Did receive previous radiation therapy. Recommendation: The patient was seen and evaluated by Dr. Clark. He is stable from the pulmonary and critical care standpoint. He did receive an IVC filter placement yesterday. No pulmonary complaints. He is cleared for discharge. I, the cosigning physician, performed a history & physical examination of the patient. Lungs sounds are clear. Maintaining good O2 saturations in the 90s on room air. I discussed the assessment and plan of care with my nurse practitioner, Jaquelin Merrill. I attest to the above note as dictated by her.
== END 2018-09-12 13:00 | disposition home or self-care (01) | DRG 166 ==
LOC: EC 18:59 → 3SCARD 09-11 02:03 → 2SICU 09-11 08:16 → 3NMEDONC 09-12 00:39
PROVIDERS: ADMIT Internal Medicine; ATTEND Internal Medicine
PROC: 30233R1 Transfusion of Nonautologous Platelets into Peripheral Vein, Percutaneous Approach (ICD-10-PCS; 2018-09-11)
PROC: 06H03DZ Insertion of Intraluminal Device into Inferior Vena Cava, Percutaneous Approach (ICD-10-PCS; principal; 2018-09-11 14:10)
DX: I26.99 Other pulmonary embolism without acute cor pulmonale (principal); D61.810 Antineoplastic chemotherapy induced pancytopenia; G93.6 Cerebral edema; C79.31 Secondary malignant neoplasm of brain; C34.11 Malignant neoplasm of upper lobe, right bronchus or lung; C79.51 Secondary malignant neoplasm of bone; C79.72 Secondary malignant neoplasm of left adrenal gland; C79.71 Secondary malignant neoplasm of right adrenal gland; D69.59 Other secondary thrombocytopenia; J44.9 Chronic obstructive pulmonary disease, unspecified; T45.1X5A Adverse effect of antineoplastic and immunosuppressive drugs, initial encounter; Z87.891 Personal history of nicotine dependence; Z82.49 Family history of ischemic heart disease and other diseases of the circulatory system; Z80.9 Family history of malignant neoplasm, unspecified; Z79.01 Long term (current) use of anticoagulants; Z91.14 Patient's other noncompliance with medication regimen; Z91.19 Patient's noncompliance with other medical treatment and regimen; Z85.118 Personal history of other malignant neoplasm of bronchus and lung; Z92.3 Personal history of irradiation; Z98.890 Other specified postprocedural states
CPT/HCPCS: 36415; 37191; 70450; 80053; 82272; 84484; 85025; 85027; 85379; 85610; 85730; 86850; 86900; 86901; 93005; 96365; 96366; 96376; 99285

== ENCOUNTER → 2018-09-10 | Outpatient (CLI) | payer OTHER ==
[2018-09-10 16:38] LABS: African American GFR (CKD) >90 (>60 ml/min/1.73 sqM); Blood Urea Nitrogen 32 mg/dL (9-20)
--- NOTE | 2018-09-10 18:09 | CT ---
EXAMINATION TYPE: CT angio chest DATE OF EXAM: 09/10/2018 COMPARISON: None HISTORY: 58-year-old male with Shortness of breath. TECHNIQUE: Contiguous axial scanning of the chest performed with IV Contrast, patient injected with 6 7ml mL of Isovue 370. Coronal/sagittal MIP reconstructions performed. CT DLP: 240.3 mGycm Automated exposure control for dose reduction was used. FINDINGS: Heart normal size with trace anterior basilar pericardial fluid. No flattening of the interventricula r septum reflux of contrast into the hepatic veins. Aortic root mildly aneurysmal at 4.4 cm. Conventional images of branching anatomy. Some mixing artifact within the pulmonary arterial system with overall satisfactory opacification. There is a short segment filling defect within a segmental right lower lobe branch, refer to axial im age 89. In addition, there is extrinsic mass effect narrowing the caliber of subsegmental left upper lobe pul monary arteries. Soft tissue also narrows the overall caliber of the right apical segment upper lobe bronchus. Elongated spiculated mass within the right suprahilar region extending up into the right upper lobe m easures approximately 5.1 cm caudal by 3.4 cm AP by 1.6 cm wide. Background of moderate to advanced centrilobular emphysema. Some scattered centrilobular nodularity within the right mid and lower lung. Small hilar hernia. Diffuse thickening of the left greater than right adrenal glands Bones: No osseous destructive process. IMPRESSION: 1. EXAM POSITIVE FOR MILD BURDEN OF PULMONARY EMBOLUS ON THE RIGHT INVOLVING A SEGMENTAL BRANCH OF TH E RIGHT LOWER LOBE. 2. ELONGATED SPICULATED RIGHT UPPER LOBE/RIGHT SUPRAHILAR MASS PARTIALLY ENCASING SEGMENTAL RIGHT UPP ER LOBE BRONCHUS AND PULMONARY ARTERIAL BRANCH NARROWING THEIR CALIBER. THE MASS MEASURES 5.1 X 3.4 X 1.6 CM. FINDINGS CONCERNING FOR LUNG CANCER. 3. COPD WITH BACKGROUND OF MODERATE TO ADVANCED EMPHYSEMA. CENTRILOBULAR NODULARITY WITHIN THE RIGHT MID AND LOWER LUNG LIKELY SECONDARY TO ASPIRATION OR ATYPICAL INFECTIONS. 4. MARKED DIFFUSE THICKENING OF THE LEFT GREATER THAN RIGHT ADRENAL GLANDS. ADRENAL HYPERPLASIA AND M ETASTATIC DISEASE ARE DIFFERENTIAL CONSIDERATIONS. The patient declined waiting for results. The technologist will be contacting the clinician to convey results. Findings conveyed to the creative technologist at 6:05 PM.
== END | disposition home or self-care (01) ==
LOC: RADCTMAIN 15:35
PROVIDERS: ATTEND Registered Nurse Oncology
DX: I26.99 Other pulmonary embolism without acute cor pulmonale (principal); J43.9 Emphysema, unspecified; R00.0 Tachycardia, unspecified; R06.02 Shortness of breath
CPT/HCPCS: 82565; 84520; 71275; 36415; Q9967

== ENCOUNTER → 2018-10-11 | Outpatient (CLI) | payer OTHER ==
[2018-10-11 16:18] LABS: African American GFR (CKD) >90 (>60 ml/min/1.73 sqM); Blood Urea Nitrogen 26 mg/dL (9-20); Non-African American GFR(CKD) >90 (>60 ml/min/1.73 sqM)
--- NOTE | 2018-10-12 08:24 | CT ---
EXAMINATION TYPE: CT ChestAbdPelvis w con DATE OF EXAM: 10/11/2018 COMPARISON: CTA chest September 10, 2018 outside whole-body CT April 27, 2018 HISTORY: Lung CA follow up CT DLP: 771.9 mGycm. Automated Exposure Control for Dose Reduction was Utilized. CONTRAST: CT scan of the thorax, abdomen and pelvis is performed with oral and with IV Contrast, patient inject ed with 100 mL of Isovue 300. FINDINGS: LUNGS: Background moderate to advanced underlying emphysematous change most prominent in bilateral up per lobes is redemonstrated. Demonstrates a spiculated right upper lobe nodule measuring 1.6 x 1.5 cm carotid study axial image 17 felt diminished in size from April study. Not significantly changed from most recent study. No new nodules or masses. No pleural effusion or pneumothorax. MEDIASTINUM: There are persistent enlarged right hilar lymph nodes with superior anterior extension a xial image 23 also felt improved from April 2018 study. Prior enlarged right paratracheal low dens e lymph node axial image 24 February study is now punctate in size since. No new adenopathy is evide nt. No cardiomegaly or pericardial effusion is seen. Bone are not performed for pulmonary embolism t here is still some segmental PE right lower lobe identified axial image 37 unchanged from most recent CT LIVER/GB: Occasional subcentimeter hypodense lesions throughout the liver too small to further charac terize but presumed benign without significant interval change. Possible fold or nodule along the gal lbladder axial image 64 is stable since PANCREAS: No significant abnormality is seen. SPLEEN: No significant abnormality is seen. ADRENALS: Bilateral adrenal metastatic lesions redemonstrated diminished in size from April CT. [place] lesion remains present on the left. For reference right adrenal gland measures 3.1 cm long axis current study axial image 58 versus 4.9 cm February study axial image 62. KIDNEYS: No significant abnormality is seen. BOWEL: Oral contrast has not reached colonic level. No suspicious small or large bowel dilatation. So me scattered diverticula in the sigmoid colon. GENITAL ORGANS: No gross abnormality seen. LYMPH NODES: No greater than 1cm abdominal or pelvic lymph nodes are appreciated. OSSEOUS STRUCTURES: Moderate narrowing both hip joints redemonstrated. OTHER: Infrarenal IVC filter. [id number] calcified plaque of the aorta extends into iliac branch vesse ls. IMPRESSION: 1. Moderate to advanced emphysematous change with positive treatment response assuming patient underg oing active treatment from April CT. Improving right lung nodule and thoracic adenopathy as well as bilateral adrenal metastatic disease. No new suspicious masses or adenopathy identified.
== END | disposition home or self-care (01) ==
LOC: RADCTMAIN 15:40
PROVIDERS: ATTEND Internal Medicine Hematology & Oncology
DX: J43.9 Emphysema, unspecified (principal); C79.71 Secondary malignant neoplasm of right adrenal gland; C79.72 Secondary malignant neoplasm of left adrenal gland; C34.11 Malignant neoplasm of upper lobe, right bronchus or lung
CPT/HCPCS: 82565; 84520; 71260; 74177; 36415; Q9967

== ENCOUNTER 2018-11-19 13:16 | Emergency (ER) | payer OTHER ==
[2018-11-19 13:55] LABS: Glucose,Whole Blood 140 mg/dL (75-99)
--- NOTE | 2018-11-19 13:58 | CT ---
EXAMINATION TYPE: CT brain wo con DATE OF EXAM: 11/19/2018 HISTORY: Chin numbness CT DLP: 1142.4 mGycm. Automated Exposure Control for Dose Reduction was Utilized. TECHNIQUE: CT scan of the head is performed without contrast. COMPARISON: CT brain September 11, 2018. Outside brain MRI November 02, 2018. FINDINGS: There is no acute intracranial hemorrhage or midline shift identified. There is diffuse v entricular and sulcal prominence consistent with diffuse age-related cerebral atrophy. There is low- attenuation in the periventricular white matter consistent with chronic small vessel ischemic change. There is persistent large area of vasogenic edema high right frontal lobe presumed on the basis of e xtra-axial mass or meningioma measuring roughly 3.5 x 2.4 cm axial image 44. There is persistent area of large vasogenic edema left parietal region presumed on the basis of rim-enhancing mass an outside MRI. Extension into the superior left temporal lobe of vasogenic edema is noted. The globes are inta ct and the visualized sinuses are clear. IMPRESSION: No acute intracranial hemorrhage or midline shift. There is mild diffuse age-related ce rebral atrophy and chronic small vessel ischemic change noted. High right frontal extra-axial mass wi th adjacent vasogenic edema and parietal intraparenchymal mass causing vasogenic edema are redemonstr ated. No significant change from prior studies.
[2018-11-19 14:14] LABS: Anisocytosis Slight; Basophils % (A) 0 %; Eosinophils # (A) 0.1 k/uL (0-0.7); Eosinophils % (A) 1 %; HGB 10.3 gm/dL (13.0-17.5); Hypochromasia Slight; Lymphocytes # (A) 1.5 k/uL (1.0-4.8); Lymphocytes % (A) 21 %; MCH 33.3 pg (25.0-35.0); MCHC 32.1 g/dL (31.0-37.0); MCV 103.6 fL (80.0-100.0); Macrocytosis Moderate; Mean Platelet Volume 8.6; Monocytes # (A) 0.1 k/uL (0-1.0); Monocytes % (A) 2 %; Neutrophils # (A) 5.5 k/uL (1.3-7.7); Neutrophils % (A) 75 %; Platelet Count 168 k/uL (150-450); Poikilocytosis Slight; RBC 3.09 m/uL (4.30-5.90); RDW 18.3 % (11.5-15.5); WBC 7.3 k/uL (3.8-10.6)
[2018-11-19 14:19] LABS: INR 0.9 (<1.2); Partial Thromboplastin Time 23.3 sec (22.0-30.0)
[2018-11-19 14:25] LABS: ALT 34 U/L (21-72); AST 40 U/L (17-59); African American GFR (CKD) >90 (>60 ml/min/1.73 sqM); Albumin 3.8 g/dL (3.5-5.0); Alkaline Phosphatase 74 U/L (38-126); Anion Gap 6 mmol/L; Blood Urea Nitrogen 31 mg/dL (9-20); Calcium 9.4 mg/dL (8.4-10.2); Carbon Dioxide 28 mmol/L (22-30); Chloride 103 mmol/L (98-107); Creatine Kinase 21 U/L (55-170); Glucose 114 mg/dL (74-99); Magnesium 1.4 mg/dL (1.6-2.3); Potassium 4.3 mmol/L (3.5-5.1); Sodium 137 mmol/L (137-145); Total Protein 6.5 g/dL (6.3-8.2)
--- NOTE | 2018-11-19 14:28 | XR ---
EXAMINATION TYPE: XR chest 2V DATE OF EXAM: 11/19/2018 COMPARISON: Prior chest x-ray June 03, 2018. CTA chest September 10, 2018 HISTORY: Facial numbness today. Weakness. TECHNIQUE: Frontal and lateral views of the chest are obtained. FINDINGS: Background moderate chronic emphysematous changes redemonstrated. Spiculated lesion right u pper lobe with scar like extension to right apex is redemonstrated. There is no suspicious peripheral focal air space opacity, pleural effusion, or pneumothorax seen. The cardiac silhouette size remain s within normal limits. The osseous structures are intact. IMPRESSION: Moderate chronic emphysematous change without new suspicious acute pulmonary process. Ibarra spicious spiculated right upper lobe mass redemonstrated.
[2018-11-19] MEDS ORDERED: HYDROmorphone 1 MG/ML 1 ML SYRINGE IVP STA (14:50)
[2018-11-19 14:52] VITALS: RESP 16
--- NOTE | 2018-11-19 15:48 | ED ---
Neuro HPI - General Chief Complaint: Neuro Symptoms/Deficit Stated Complaint: Facial Numbness Time Seen by Provider: 11/19/18 13:30 Source: patient, RN notes reviewed Mode of arrival: ambulatory Limitations: no limitations - History of Present Illness Is the patient presenting with stroke symptoms?: No Last Known Well Date: 11/18/18 Initial Comments: Is a 58-year-old male with a history of metastatic cancer with metastases to the brain who is received treatment for this and has shown improvement who presents from his doctor's office with complaints of facial numbness a stress and a left occurred at 3:30 this morning. No focal deficits with respect to her arms or legs no blindness no other modifying factors this time. The symptoms have somewhat improved. He was sent here for evaluation to rule out CVA. Patient denies any fevers chills nausea vomiting sweats he does admit to a decreased alyse etite recently. - Related Data Home Medications: Home Medications Medication Instructions Recorded Confirmed Dexamethasone [Hexadrol] See Taper PO DAILY 09/11/18 11/19/18 predniSONE 5 mg PO BID 11/19/18 11/19/18 Previous Rx's Medication Instructions Recorded Acetaminophen Tab [Tylenol] 650 mg PO Q6HR PRN tab 09/12/18 Magnesium 200 mg PO DAILY #14 tablet 11/19/18 Allergies/Adverse Reactions: Allergies Allergy/AdvReac Type Severity Reaction Status Date / Time No Known Allergies Allergy Verified 11/19/18 14:05 Review of Systems ROS Statement: Those systems with pertinent positive or pertinent negative responses have been documented in the HPI. ROS Other: All systems not noted in ROS Statement are negative. General Exam - General Exam Comments Initial Comments: This is a well-developed well-nourished awake alert oriented 3 male Limitations: no limitations General appearance: alert, in no apparent distress Head exam: Present: atraumatic, normocephalic, normal inspection Eye exam: Present: normal appearance, PERRL, EOMI. Absent: scleral icterus, conjunctival injection, periorbital swelling ENT exam: Present: mucous membranes dry Neck exam: Present: normal inspection. Absent: tenderness, meningismus, lymphadenopathy Respiratory exam: Present: normal lung sounds bilaterally. Absent: respiratory distress, wheezes, rales, rhonchi, stridor Cardiovascular Exam: Present: regular rate, normal rhythm, normal heart sounds. Absent: systolic murmur, diastolic murmur, rubs, gallop, clicks GI/Abdominal exam: Present: soft, normal bowel sounds. Absent: distended, tenderness, guarding, rebound, rigid Extremities exam: Present: normal inspection, full ROM, normal capillary refill. Absent: tenderness, pedal edema, joint swelling, calf tenderness Back exam: Present: normal inspection Neurological exam: Present: alert, oriented X3, CN II-XII intact Psychiatric exam: Present: normal affect, normal mood Skin exam: Present: warm, dry, intact, normal color. Absent: rash Stroke MDM - Lab Data Result diagrams: 11/19/18 13:54 11/19/18 13:54 Lab Results 11/19/18 11/19/18 11/19/18 Range/Units 13:50 13:54 13:54 WBC 7.3 (3.8-10.6) k/uL RBC 3.09 L (4.30-5.90) m/uL Hgb 10.3 L (13.0-17.5) gm/dL Hct 32.0 L (39.0-53.0) % MCV 103.6 H (80.0-100.0) fL MCH 33.3 (25.0-35.0) pg MCHC 32.1 (31.0-37.0) g/dL RDW 18.3 H (11.5-15.5) % Plt Count 168 (150-450) k/uL Neutrophils % 75 % Lymphocytes % 21 % Monocytes % 2 % Eosinophils % 1 % Basophils % 0 % Neutrophils # 5.5 (1.3-7.7) k/uL Lymphocytes # 1.5 (1.0-4.8) k/uL Monocytes # 0.1 (0-1.0) k/uL Eosinophils # 0.1 (0-0.7) k/uL Basophils # 0.0 (0-0.2) k/uL Hypochromasia Slight Poikilocytosis Slight Anisocytosis Slight Macrocytosis Moderate PT (9.0-12.0) sec INR (<1.2) APTT (22.0-30.0) sec Sodium 137 (137-145) mmol/L Potassium 4.3 (3.5-5.1) mmol/L Chloride 103 (98-107) mmol/L Carbon Dioxide 28 (22-30) mmol/L Anion Gap 6 mmol/L BUN 31 H (9-20) mg/dL Creatinine 0.78 (0.66-1.25) mg/dL Est GFR (CKD-EPI)AfAm >90 (>60 ml/min/1.73 sqM) Est GFR (CKD-EPI)NonAf >90 (>60 ml/min/1.73 sqM) Glucose 114 H (74-99) mg/dL POC Glucose (mg/dL) 140 H (75-99) mg/dL POC Glu Printing Table Hand ID Didier [place] Calcium 9.4 (8.4-10.2) mg/dL Magnesium 1.4 L (1.6-2.3) mg/dL Total Bilirubin 1.0 (0.2-1.3) mg/dL AST 40 (17-59) U/L ALT 34 (21-72) U/L Alkaline Phosphatase 74 (38-126) U/L Creatine Kinase 21 L (55-170) U/L Troponin I (0.000-0.034) ng/mL Total Protein 6.5 (6.3-8.2) g/dL Albumin 3.8 (3.5-5.0) g/dL 11/19/18 11/19/18 Range/Units 13:54 13:54 WBC (3.8-10.6) k/uL RBC (4.30-5.90) m/uL Hgb (13.0-17.5) gm/dL Hct (39.0-53.0) % MCV (80.0-100.0) fL MCH (25.0-35.0) pg MCHC (31.0-37.0) g/dL RDW (11.5-15.5) % Plt Count (150-450) k/uL Neutrophils % % Lymphocytes % % Monocytes % % Eosinophils % % Basophils % % Neutrophils # (1.3-7.7) k/uL Lymphocytes # (1.0-4.8) k/uL Monocytes # (0-1.0) k/uL Eosinophils # (0-0.7) k/uL Basophils # (0-0.2) k/uL Hypochromasia Poikilocytosis Anisocytosis Macrocytosis PT 10.0 (9.0-12.0) sec INR 0.9 (<1.2) APTT 23.3 (22.0-30.0) sec Sodium (137-145) mmol/L Potassium (3.5-5.1) mmol/L Chloride (98-107) mmol/L Carbon Dioxide (22-30) mmol/L Anion Gap mmol/L BUN (9-20) mg/dL Creatinine (0.66-1.25) mg/dL Est GFR (CKD-EPI)AfAm (>60 ml/min/1.73 sqM) Est GFR (CKD-EPI)NonAf (>60 ml/min/1.73 sqM) Glucose (74-99) mg/dL POC Glucose (mg/dL) (75-99) mg/dL POC Glu Printing Table Hand ID Calcium (8.4-10.2) mg/dL Magnesium (1.6-2.3) mg/dL Total Bilirubin (0.2-1.3) mg/dL AST (17-59) U/L ALT (21-72) U/L Alkaline Phosphatase (38-126) U/L Creatine Kinase (55-170) U/L Troponin I <0.012 (0.000-0.034) ng/mL Total Protein (6.3-8.2) g/dL Albumin (3.5-5.0) g/dL - NIH Stroke Scale 1a. Level of Consciousness: (0) alert 1b. LOC Questions: (0) answers correctly 1c. LOC Commands: (0) performs tasks correctly 2. Best Gaze: (0) normal 3. Visual: (0) no visual loss 4. Facial Palsy: (0) normal symmetrical movement 5a. Motor Arm Left: (0) no drift 5b. Motor Arm Right: (0) no drift 6a. Motor Leg Left: (0) no drift 6b. Motor Leg Right: (0) no drift 7. Limb Ataxia: (0) absent 8. Sensory: (0) normal 9. Best Language: (0) no aphasia 10. Dysarthria: (0) normal 11. Extinction/Inattention: (0) no abnormality - Medical Decision Making I did discuss findings with patient and with Dr. Owen the patient be discharged with MRIMRA of the brain as planned outpatient and follow-up as planned. - EKG Data -: EKG Interpreted by Me EKG shows normal: sinus rhythm (Sinus tachycardia rate of 114. Interval 134 QRS duration 72 QT since QTC 312/[address]-T wave changes) Past Medical History Past Medical History: Cancer, Pulmonary Embolus (PE) History of Any Multi-Drug Resistant Organisms: None Reported Past Surgical History: Orthopedic Surgery Additional Past Surgical History / Comment(s): right elbow Past Anesthesia/Blood Transfusion Reactions: No Reported Reaction Past Psychological History: No Psychological Hx Reported Smoking Status: Former smoker Past Alcohol Use History: None Reported Past Drug Use History: None Reported - Past Family History Brother(s) Family Medical History: Coronary Artery Disease (CAD) Mother Family Medical History: Cancer Additional Family Medical History / Comment(s): lung Course Vital Signs 11/19/18 11/19/18 11/19/18 13:19 13:40 14:09 Temperature 97.5 F L Pulse Rate 122 H 108 H 107 H Respiratory 18 20 18 Rate Blood Pressure 143/85 143/86 138/88 O2 Sat by Pulse 98 100 100 Oximetry 11/19/18 14:50 Temperature Pulse Rate 107 H Respiratory 16 Rate Blood Pressure 138/89 O2 Sat by Pulse 100 Oximetry - Reevaluation(s) Reevaluation #1: 11/19/18 15:49 Patient did receive a CAT scan as well as workup. He does demonstrate evidence of dehydration and hypomagnesemia CAT scan of the brain shows no change from the previous 12 respect to the mass with vasogenic edema. I did discuss the case with Dr. Owen patient be discharged outpatient MRI with contrast is to be ordered he will follow-up as planned. He will also increase his oral fluids as well as Disposition Clinical Impression: Metastatic cancer to brain, Dehydration, Hypomagnesemia syndrome, Paresthesia Disposition: HOME SELF-CARE Condition: Good Instructions (If sedation given, give patient instructions): Dehydration (ED), Hypomagnesemia (ED), Paresthesia (ED) Prescriptions: Magnesium 200 mg PO DAILY #14 tablet Is patient prescribed a controlled substance at d/c from ED?: No Referrals: None,Stated [Primary Care Provider] - 1-2 days
[2018-11-19] MEDS ORDERED: HYDROcodone/APAP 5-325MG 1 EACH TAB PO STA (16:10)
[2018-11-19 16:20] VITALS: BP 116/79; PULSE 86; TEMP 98.1
== END 2018-11-19 16:10 | disposition home or self-care (01) ==
LOC: EC 13:16
DX: C79.31 Secondary malignant neoplasm of brain (principal); E86.0 Dehydration; E83.42 Hypomagnesemia; Z87.891 Personal history of nicotine dependence; Z79.52 Long term (current) use of systemic steroids; Z85.9 Personal history of malignant neoplasm, unspecified; Z53.8 Procedure and treatment not carried out for other reasons
CPT/HCPCS: 36415; 70450; 71046; 80053; 82550; 83735; 84484; 85025; 85610; 85730; 93005; 99284